=== PATIENT | female | born 1980 | race Caucasian/White ===

== ENCOUNTER 2016-04-16 02:45 | Emergency (ER) | payer BC ==
[2016-04-16 03:21] LABS: Urine Bacteria Absent (Absent); Urine Bilirubin Negative (Negative); Urine Glucose Negative (Negative); Urine Nitrite Negative (Negative)
[2016-04-16] MEDS ORDERED: Ketorolac INJ* 60 MG/2 ML VIAL IM ONE (04:00)
--- NOTE | 2016-04-16 04:28 | ED ---
Star Zimmerman Karl, scribed for Garret Baer MD on 04/16/16 at 0312 . GI/ HPI - HPI Summary HPI Summary: Pt is a 36 y/o female that presents to the ED c/o 9/10 back pain. Pt reported that her pain began 5 days ago on her left side as a shooting back pain that was accompanied by dizziness and frequent urination. Pt stated that her pain subsided but returned tonight and is now constant and on her left and right side. Pt reported that the pain worsened tonight to the point that she could not lay down so she decided to visit the ED. Pt stated that she took Tylenol PM to alleviate her pain but it did not help much. - History of Current Complaint Chief Complaint: EDUrogenitalProblems Time Seen by Provider: 04/16/16 03:05 Stated Complaint: RT SIDE BACK PAIN Hx Obtained From: Patient Onset/Duration: Started Days Ago - 5, Atraumatic, Worse Since - tonight Timing: Constant Severity: Moderate Current Severity: Moderate Pain Intensity: 9 - back pain Associated Signs and Symptoms: Positive: Back Pain, Dizziness, Other: - frequent urination - Allergy/Home Medications Allergies/Adverse Reactions: Allergies Allergy/AdvReac Type Severity Reaction Status Date / Time Penicillins Allergy Severe Hives Verified 03/31/16 17:57 Oxycodone [From Percocet] Allergy Mild Nausea Verified 03/31/16 17:57 Diphenhydramine Allergy Itching Verified 03/31/16 17:57 [From Benadryl] Erythromycin Allergy Nausea And Verified 03/31/16 17:57 Vomiting Latex Allergy Itching Verified 03/31/16 17:57 Levetiracetam [From Keppra] Allergy Altered Verified 03/31/16 17:57 Mental Status Morphine Allergy Itching Verified 03/31/16 17:57 Tramadol Allergy Nausea Verified 03/31/16 17:57 sunflower seeds AdvReac Unknown cold sores Uncoded 11/10/15 18:32 PMH/Surg Hx/FS Hx/Imm Hx Endocrine/Hematology History: Reports: Hx Thyroid Disease - HYPOTHYROID Denies: Hx Diabetes Cardiovascular History: Reports: Other Cardiovascular Problems/Disorders - CARDIAC ARRYTHMIA SEEN A FEW YEARS AGO Denies: Hx Hypertension, Hx Pacemaker/ICD Respiratory History: Denies: Hx Asthma, Hx Chronic Obstructive Pulmonary Disease (COPD) GI History: Denies: Hx Ulcer History: Denies: Hx Renal Disease Musculoskeletal History: Denies: Hx Scoliosis Sensory History: Denies: Hx Hearing Aid Neurological History: Reports: Hx Migraine Denies: Hx Headaches, Other Neuro Impairments/Disorders Psychiatric History: Denies: Hx Panic Disorder - Surgical History Surgery Procedure, Year, and Place: R humerus; L knee tendon, WISDOM TEETH - Immunization History Date of Tetanus Vaccine: UTD Date of Influenza Vaccine: NONE Infectious Disease History: No Infectious Disease History: Denies: Hx Clostridium Difficile, Hx Hepatitis, Hx Human Immunodeficiency Virus (HIV), Hx of Known/Suspected MRSA, Hx Shingles, Hx Tuberculosis, Hx Known/ Suspected VRE, Hx Known/Suspected VRSA, History Other Infectious Disease, Traveled Outside the [place] in Last 30 Days - Family History Known Family History: Positive: Cardiac Disease - @46, Diabetes - father, Other - father had "skin CA in eye" - Social History Alcohol Use: Occasionally Hx Substance Use: No Substance Use Type: Reports: None Hx Tobacco Use: No Smoking Status (MU): Never Smoked Tobacco Have You Smoked in the Last Year: No Review of Systems Constitutional: Negative Eyes: Negative ENT: Negative Respiratory: Negative Gastrointestinal: Negative Positive: frequency - urination Positive: Myalgia - bilateral back pain Skin: Negative Neurological: Other - dizziness Psychological: Normal All Other Systems Reviewed And Are Negative: Yes Physical Exam Triage Information Reviewed: Yes Vital Signs On Initial Exam: Initial Vitals Temp Pulse Resp BP Pulse Ox 99.1 F 78 16 106/70 100 04/16/16 02:50 04/16/16 02:50 04/16/16 02:50 04/16/16 02:50 04/16/16 02:50 Vital Signs Reviewed: Yes Appearance: Positive: Well-Appearing, Pain Distress - MILD DISCOMFORT Skin: Positive: Warm Eyes: Positive: LOUISA ENT: Positive: Hearing grossly normal Respiratory/Lung Sounds: Positive: Breath Sounds Present Abdomen Description: Positive: Nontender, No Organomegaly, Soft. Negative: CVA Tenderness (R), CVA Tenderness (L) Bowel Sounds: Positive: Present Musculoskeletal: Positive: Other - MILD PARA LUMBAR SPASM Neurological: Positive: Sensory/Motor Intact, Alert, Oriented to Person Place, Time, Normal Gait Psychiatric: Positive: Affect/Mood Appropriate Diagnostics - Vital Signs Vital Signs Temp Pulse Resp BP Pulse Ox 04/16/16 02:50 99.1 F 78 16 106/70 100 - Laboratory Lab Results: Lab Results 04/16/16 Range/Units 03:04 Urine Color Yellow Urine Appearance Clear Urine pH 6.0 (5-9) Ur Specific [place] 1.008 L (1.010-1.030) Urine Protein Negative (Negative) Urine Ketones Negative (Negative) Urine Blood Negative (Negative) Urine Nitrate Negative (Negative) Urine Bilirubin Negative (Negative) Urine Urobilinogen Negative (Negative) Ur Leukocyte Esterase Trace H (Negative) Urine WBC (Auto) Trace(0-5/hpf) (Absent) Urine RBC (Auto) Trace(0-2/hpf) (Absent) Ur Squamous Epith Cells Present H (Absent) Urine Bacteria Absent (Absent) Urine Glucose Negative (Negative) Lab Statement: Any lab studies that have been ordered have been reviewed, and results considered in the medical decision making process. Re-Evaluation - Re-Evaluation First Eval Change: Improved GIGU Course/Dx - Diagnoses Provider Diagnoses: Back pain Discharge - Discharge Plan Condition: Improved Disposition: HOME Prescriptions: Cyclobenzaprine TAB* [Flexeril TAB*] 10 mg PO TID #20 tab Ibuprofen TAB* [Advil TAB*] 600 mg PO Q6H #40 tab Patient Education Materials: Low Back Strain (ED), Acute Low Back Pain (ED) Referrals: Sharita Braun MD [Primary Care Provider] - Additional Instructions: Please follow up with your primary care provider. Return to the emergency department for changing or worsening symptoms. The documentation as recorded by the Star sanchez Karl accurately reflects the service I personally performed and the decisions made by Keyur trujillo David, MD.
[2016-04-16 04:49] VITALS: BP 107/77
== END 2016-04-16 04:49 | disposition home or self-care (01) ==
LOC: ED 02:45
DX: M54.9 Dorsalgia, unspecified (principal); R42 Dizziness and giddiness
CPT/HCPCS: 81003; 81015; 87086; 96372; 99282; J1885

== ENCOUNTER 2016-04-18 17:46 | Emergency (ER) | payer BC ==
[2016-04-18 18:20] VITALS: BP 131/70
--- NOTE | 2016-04-18 18:39 | UC ---
Hand/Wrist HPI - HPI Summary HPI Summary: no known injury --right thumb pain worsening over the past week - History Of Current Complaint Chief Complaint: UCUpperExtremity Stated Complaint: THUMB COMPLAINT Time Seen by Provider: 04/18/16 18:33 Hx Obtained From: Patient Hx Last Menstrual Period: 04/14/16 ?: No Mechanism Of Injury: melinda Onset/Duration: Gradual Onset, Lasting Days - 7, Still Present Severity Initially: Moderate Severity Currently: Moderate Character Of Pain: Aching Aggravating Factor(s): Movement Alleviating: Rest Associated Signs And Symptoms: Positive: Negative Related History: Dominant Hand Right - Allergies/Home Medications Allergies/Adverse Reactions: Allergies Allergy/AdvReac Type Severity Reaction Status Date / Time Penicillins Allergy Severe Hives Verified 04/18/16 18:13 Oxycodone [From Percocet] Allergy Mild Nausea Verified 04/18/16 18:13 Diphenhydramine Allergy Itching Verified 04/18/16 18:13 [From Benadryl] Erythromycin Allergy Nausea And Verified 04/18/16 18:13 Vomiting Latex Allergy Itching Verified 04/18/16 18:13 Levetiracetam [From Keppra] Allergy Altered Verified 04/18/16 18:13 Mental Status Morphine Allergy Itching Verified 04/18/16 18:13 Tramadol Allergy Nausea Verified 04/18/16 18:13 sunflower seeds AdvReac Unknown cold sores Uncoded 04/18/16 18:13 PMH/Surg Hx/FS Hx/Imm Hx Previously Healthy: No Endocrine History Of: Reports: Thyroid Disease - HYPOTHYROID Denies: Diabetes Cardiovascular History Of: Denies: Cardiac Disorders, Hypertension, Pacemaker/ICD Respiratory History Of: Denies: COPD, Asthma GI/ History Of: Denies: Ulcer, Renal Disease Neurological History Of: Reports: Migraine - Surgical History Surgical History: Yes Surgery Procedure, Year, and Place: R humerus; L knee tendon, WISDOM TEETH - Family History Known Family History: Positive: Cardiac Disease - @46, Diabetes - father, Other - father had "skin CA in eye" - Social History Occupation: Student Lives: With Family Alcohol Use: None Substance Use Type: None Smoking Status (MU): Never Smoked Tobacco Have You Smoked in the Last Year: No Review of Systems Constitutional: Negative Skin: Negative Eyes: Negative ENT: Negative Respiratory: Negative Cardiovascular: Negative Gastrointestinal: Negative Genitourinary: Negative Motor: Weakness - right thumb Neurovascular: Negative Musculoskeletal: Arthralgia - right thumb mpj Neurological: Negative Psychological: Negative All Other Systems Reviewed And Are Negative: Yes Physical Exam Triage Information Reviewed: Yes Appearance: Well-Appearing, No Pain Distress, Well-Nourished Vital Signs: Initial Vital Signs Temp 97.7 F 04/18/16 18:15 Pulse 85 04/18/16 18:15 Resp 18 04/18/16 18:15 BP 131/70 04/18/16 18:15 Pulse Ox 98 04/18/16 18:15 Vital Signs Reviewed: Yes Eye Exam: Normal Eyes: Positive: Conjunctiva Clear ENT Exam: Normal ENT: Positive: Normal ENT inspection, Hearing grossly normal. Negative: Nasal congestion, Nasal drainage, Trismus, Muffled/hoarse voice Dental Exam: Normal Neck exam: Normal Neck: Positive: Supple, Nontender Respiratory Exam: Normal Respiratory: Positive: Chest non-tender, Lungs clear, Normal breath sounds, No respiratory distress, No accessory muscle use Cardiovascular Exam: Normal Cardiovascular: Positive: RRR, No Murmur, Pulses Normal, Brisk Capillary Refill Musculoskeletal Exam: Normal Musculoskeletal: Positive: ROM Intact, No Edema, Strength Limited @ - right thumb Neurological Exam: Normal Neurological: Positive: Alert, Muscle Tone Normal Psychological Exam: Normal Psychological: Positive: Normal Response To Family Skin Exam: Normal Diagnostics - Radiology No standard instances Xray Interpretation: No Acute Changes Radiology Interpretation Completed By: ED Physician, Radiologist Hand/Wrist Course/Dx - Course Course Of Treatment: splint, antinflammatories, rest, ice, follow with pcp or ortho prn - Differential Dx/Diagnosis Differential Diagnosis/HQI/PQRI: Cellulitis, Contusion, Dislocation, Fracture, Gout, Tendonitis Provider Diagnoses: R thumb tendonitis Discharge - Discharge Plan Condition: Stable Disposition: HOME Prescriptions: Ibuprofen TAB* [Motrin TAB* 600 MG] 600 mg PO Q6H PRN #40 tab PRN Reason: pain Patient Education Materials: Ibuprofen (By mouth), Tendinitis (ED) Referrals: Natalya Che MD [Medical Doctor] - 7 Days Sharita Braun MD [Primary Care Provider] -
[2016-04-18] MEDS ORDERED: Ibuprofen TAB* 600 MG PO ONE (18:40)
--- NOTE | 2016-04-18 19:06 | RAD ---
INDICATION: Right thumb injury COMPARISON: None TECHNIQUE: AP, lateral, and oblique views were obtained. FINDINGS: The bony structures, joint spaces, and soft tissues are normal for age. IMPRESSION: NEGATIVE EXAMINATION.
== END 2016-04-18 19:32 | disposition home or self-care (01) ==
LOC: UCEAST 17:46
DX: M77.9 Enthesopathy, unspecified (principal); M79.644 Pain in right finger(s); Z88.6 Allergy status to analgesic agent; Z88.1 Allergy status to other antibiotic agents; Z88.0 Allergy status to penicillin; Z88.8 Allergy status to other drugs, medicaments and biological substances
CPT/HCPCS: 99213; A9270-GY; G0463

== ENCOUNTER 2016-07-04 15:07 | Emergency (ER) | payer BC ==
[2016-07-04 15:29] VITALS: BP 114/74
--- NOTE | 2016-07-04 16:22 | UC ---
[facility] HPI - HPI Summary HPI Summary: PT WITH RIGHT UPPER TEETH PAIN FOR MONTHS. HAS APPT FOR TOOTH EXTRACTION IN 2 DAYS BUT PAIN WAS TOO SEVERE SO SHE CAME IN TODAY. NO FEVER. TOOK HYDROCODONE/ APAP 5/325 WHICH DID NOT HELP MUCH. - History of Current Complaint Chief Complaint: UC Stated Complaint: TOOTH PAIN Time Seen by Provider: 07/04/16 16:03 Hx Obtained From: Patient Hx Last Menstrual Period: HAVING PERIOD NOW Onset/Duration: Gradual Onset, Lasting Weeks, Still Present Severity: Severe Pain Intensity: 10 Pain Scale Used: 0-10 Numeric Aggravating: Heat, Cold, Chewing Alleviating: Nothing Related History: Previous Dental Care on Same Tooth - Allergies/Home Medications Allergies/Adverse Reactions: Allergies Allergy/AdvReac Type Severity Reaction Status Date / Time Penicillins Allergy Severe Hives Verified 07/04/16 15:21 Oxycodone [From Percocet] Allergy Mild Nausea Verified 07/04/16 15:21 Diphenhydramine Allergy Itching Verified 07/04/16 15:21 [From Benadryl] Erythromycin Allergy Nausea And Verified 07/04/16 15:21 Vomiting Latex Allergy Itching Verified 07/04/16 15:21 Levetiracetam [From Keppra] Allergy Altered Verified 07/04/16 15:21 Mental Status Morphine Allergy Itching Verified 07/04/16 15:21 Tramadol Allergy Nausea Verified 07/04/16 15:21 sunflower seeds AdvReac Unknown cold sores Uncoded 07/04/16 15:21 PMH/Surg Hx/FS Hx/Imm Hx Endocrine History Of: Reports: Thyroid Disease - HYPOTHYROID, Hypothyroidism Denies: Diabetes Cardiovascular History Of: Denies: Cardiac Disorders, Hypertension, Pacemaker/ICD Respiratory History Of: Denies: COPD, Asthma GI/ History Of: Denies: Ulcer, Renal Disease Neurological History Of: Reports: Migraine Psychological History Of: Reports: Anxiety, Depression - Surgical History Surgical History: Yes Surgery Procedure, Year, and Place: R humerus; L knee tendon, WISDOM TEETH - Family History Known Family History: Positive: Cardiac Disease - @46, Diabetes - father, Other - father had "skin CA in eye" - Social History Alcohol Use: None Substance Use Type: Prescribed Smoking Status (MU): Never Smoked Tobacco Have You Smoked in the Last Year: No Review of Systems Constitutional: Negative ENT: Dental Pain Respiratory: Negative Cardiovascular: Negative Gastrointestinal: Negative All Other Systems Reviewed And Are Negative: Yes Physical Exam Triage Information Reviewed: Yes Appearance: Well-Appearing, No Pain Distress, Well-Nourished Vital Signs: Initial Vital Signs Temp 98.4 F 07/04/16 15:24 Pulse 68 07/04/16 15:24 Resp 16 07/04/16 15:24 BP 114/74 07/04/16 15:24 Pulse Ox 100 07/04/16 15:24 Vital Signs Reviewed: Yes Eyes: Positive: Conjunctiva Clear ENT: Positive: Hearing grossly normal Dental: Positive: Gross Decay/Caries @. Negative: Cervical Lymphadenopathy Neck: Positive: Supple, Nontender, No Lymphadenopathy Respiratory Exam: Normal Cardiovascular Exam: Normal Abdomen Description: Positive: Soft Musculoskeletal: Positive: No Edema Neurological: Positive: Alert Psychological: Positive: Age Appropriate Behavior Skin: Negative: rashes Dental Complaint Course/Dx - Differential Dx/Diagnosis Provider Diagnoses: DENTAL PAIN Discharge - Discharge Plan Condition: Stable Disposition: HOME Prescriptions: Chlorhexidine MW 0.12% 473ML* [Peridex Mouth Wash 0.12%*] 15 ml SWISH SPIT BID # 1 bottle Hydrocodone-Acetaminophen [Lorcet Plus 7.5-325 mg] 1 tab PO Q6H #12 tab MDD 4 Patient Education Materials: Toothache (ED) Referrals: Sharita Braun MD [Primary Care Provider] - If Needed Additional Instructions: KEEP YOUR DENTAL APPT ON WEDNESDAY MORNING. OKAY TO TAKE 1.5-2 OF THE NORCO TABLETS YOU HAVE AT HOME EVERY 6 HRS. NEW RX FOR 7.5MG TABS SENT TO PHARMACY. OKAY TO TAKE IBUPROFEN WELL. BE AWARE THAT THESE MEDS MAY MAKE YOU SLEEPY.
== END 2016-07-04 16:46 | disposition home or self-care (01) ==
LOC: UCEAST 15:07
DX: K08.89 Other specified disorders of teeth and supporting structures (principal); Z88.1 Allergy status to other antibiotic agents; Z88.5 Allergy status to narcotic agent; Z88.0 Allergy status to penicillin; E03.9 Hypothyroidism, unspecified; G43.909 Migraine, unspecified, not intractable, without status migrainosus
CPT/HCPCS: 99212; G0463

== ENCOUNTER 2016-08-29 17:07 | Emergency (ER) | payer BC ==
[2016-08-29 17:26] VITALS: BP 127/81
--- NOTE | 2016-08-29 18:30 | UC ---
[facility] HPI - HPI Summary HPI Summary: DENTAL PAIN AND SWELLING AT (#14 & 15) LEFT UPPER JAW. HAD EXTRACTION OF RIGHT SIDE DONE LAST MONTH. LAST THREE DAYS HAS BEEN BOTHERING HER, PAIN WITH CHEWING. NO FEVER. - History of Current Complaint Chief Complaint: UCDentalProblem Stated Complaint: TOOTH COMPLAINT Time Seen by Provider: 08/29/16 17:27 Hx Obtained From: Patient Hx Last Menstrual Period: 08/27/16 Onset/Duration: Gradual Onset, Lasting Days, Still Present Severity: Moderate Pain Intensity: 9 Pain Scale Used: 0-10 Numeric Related History: Swelling - Allergies/Home Medications Allergies/Adverse Reactions: Allergies Allergy/AdvReac Type Severity Reaction Status Date / Time Penicillins Allergy Severe Hives Verified 07/04/16 15:21 Oxycodone [From Percocet] Allergy Mild Nausea Verified 07/04/16 15:21 Diphenhydramine Allergy Itching Verified 07/04/16 15:21 [From Benadryl] Erythromycin Allergy Nausea And Verified 07/04/16 15:21 Vomiting Latex Allergy Itching Verified 07/04/16 15:21 Levetiracetam [From Keppra] Allergy Altered Verified 07/04/16 15:21 Mental Status Morphine Allergy Itching Verified 07/04/16 15:21 Tramadol Allergy Nausea Verified 07/04/16 15:21 sunflower seeds AdvReac Unknown cold sores Uncoded 07/04/16 15:21 PMH/Surg Hx/FS Hx/Imm Hx Previously Healthy: Yes Endocrine History Of: Reports: Thyroid Disease - HYPOTHYROID, Hypothyroidism Denies: Diabetes Cardiovascular History Of: Denies: Cardiac Disorders, Hypertension, Pacemaker/ICD Respiratory History Of: Denies: COPD, Asthma GI/ History Of: Denies: Ulcer, Renal Disease Neurological History Of: Reports: Migraine Psychological History Of: Reports: Anxiety, Depression - Surgical History Surgical History: Yes Surgery Procedure, Year, and Place: R humerus; L knee tendon, WISDOM TEETH - Family History Known Family History: Positive: Cardiac Disease - @46, Diabetes - father, Other - father had "skin CA in eye" - Social History Alcohol Use: None Substance Use Type: Prescribed Smoking Status (MU): Never Smoked Tobacco Have You Smoked in the Last Year: No Review of Systems Constitutional: Negative Skin: Negative Eyes: Negative ENT: Dental Pain Respiratory: Negative Cardiovascular: Negative Gastrointestinal: Negative Genitourinary: Negative Motor: Negative Neurovascular: Negative Musculoskeletal: Negative Neurological: Negative Psychological: Negative All Other Systems Reviewed And Are Negative: Yes Physical Exam Triage Information Reviewed: Yes Appearance: Well-Appearing, No Pain Distress, Well-Nourished Vital Signs: Initial Vital Signs Temp 97.8 F 08/29/16 17:23 Pulse 78 08/29/16 17:23 Resp 16 08/29/16 17:23 BP 127/81 08/29/16 17:23 Pulse Ox 100 08/29/16 17:23 Eye Exam: Normal ENT Exam: Normal ENT: Positive: Normal ENT inspection, Hearing grossly normal, Pharynx normal, TMs normal Dental: Positive: Percussion Tenderness @ - 14, 15, Abscess @ - 14, 15 Neck exam: Normal Neck: Positive: Supple, Nontender Respiratory Exam: Normal Respiratory: Positive: Chest non-tender, Lungs clear, Normal breath sounds, No respiratory distress Cardiovascular Exam: Normal Cardiovascular: Positive: RRR, No Murmur, Pulses Normal Abdominal Exam: Normal Abdomen Description: Positive: Nontender, No Organomegaly Musculoskeletal Exam: Normal Neurological Exam: Normal Psychological Exam: Normal Skin Exam: Normal Dental Complaint Course/Dx - Differential Dx/Diagnosis Differential Diagnosis/Dx: Dental Abscess, Dental Caries, Fractured Tooth Provider Diagnoses: DENTAL PAIN, ABSCESS #14, 15 Discharge - Discharge Plan Condition: Stable Disposition: HOME Prescriptions: Clindamycin Cap(NF) [Cleocin 300 mg Cap(NF)] 300 mg PO TID #30 cap HYDROcodone/ACETAMIN 5-325 MG* [[place] 5-325 TAB*] 1 tab PO Q8H PRN #9 tab MDD three tabs PRN Reason: Pain Patient Education Materials: Dental Abscess (ED), Toothache (ED) Referrals: Sharita Braun MD [Primary Care Provider] - Additional Instructions: dental care referral sheet given [facility]: 1 - PAIN HERE
== END 2016-08-29 18:10 | disposition home or self-care (01) ==
LOC: UCEAST 17:07
DX: K04.7 Periapical abscess without sinus (principal); K08.89 Other specified disorders of teeth and supporting structures; E03.9 Hypothyroidism, unspecified; G43.909 Migraine, unspecified, not intractable, without status migrainosus; F41.9 Anxiety disorder, unspecified; F32.9 Major depressive disorder, single episode, unspecified; Z88.0 Allergy status to penicillin; Z88.8 Allergy status to other drugs, medicaments and biological substances; Z88.5 Allergy status to narcotic agent; Z88.1 Allergy status to other antibiotic agents; Z91.040 Latex allergy status
CPT/HCPCS: 99212; G0463

== ENCOUNTER 2016-09-12 02:31 | Emergency (ER) | payer BC ==
[2016-09-12] MEDS ORDERED: Amoxicillin/Clavulanate TAB* 875 MG PO ONE (03:57)
[2016-09-12] MEDS ORDERED: HYDROcodone/ACETAMIN 5-325 MG* 1 TAB PO ONE (03:58)
--- NOTE | 2016-09-12 04:20 | ED ---
Cecille Zimmerman Alok, scribed for Tone Pitt MD on 09/12/16 at 0402 . Throat Pain/Nasal Congestion - HPI Summary HPI Summary: 36F presents with dental pain at the upper left side at tooth 14 for the past 3 weeks. Pt was seen at and was dx with a dental abscess and rx for clindamycin for 1.5 weeks. Pt states her condition improved temporarily before worsening again. Pt states her dental pain radiates to the left ear. Pt states her dental pain is aggravated when chewing. Pt has had her wisdom teeth removed. Pt notes chills and left sided facial swelling. Pt denies fever. Pt notes allergies to Erthromycin and Morphine. Pt states she is able to take Augmentin. - History of Current Complaint Chief Complaint: EDDentalPain Time Seen by Provider: 09/12/16 03:32 Hx Obtained From: Patient Onset/Duration: Lasting Weeks, Still Present Severity: Moderate - Allergies/Home Medications Allergies/Adverse Reactions: Allergies Allergy/AdvReac Type Severity Reaction Status Date / Time Penicillins Allergy Severe Hives Verified 07/04/16 15:21 Oxycodone [From Percocet] Allergy Mild Nausea Verified 07/04/16 15:21 Diphenhydramine Allergy Itching Verified 07/04/16 15:21 [From Benadryl] Erythromycin Allergy Nausea And Verified 07/04/16 15:21 Vomiting Latex Allergy Itching Verified 07/04/16 15:21 Levetiracetam [From Keppra] Allergy Altered Verified 07/04/16 15:21 Mental Status Morphine Allergy Itching Verified 07/04/16 15:21 Tramadol Allergy Nausea Verified 07/04/16 15:21 sunflower seeds AdvReac Unknown cold sores Uncoded 07/04/16 15:21 PMH/Surg Hx/FS Hx/Imm Hx Endocrine/Hematology History: Reports: Hx Thyroid Disease - HYPOTHYROID Denies: Hx Diabetes Cardiovascular History: Reports: Other Cardiovascular Problems/Disorders - CARDIAC ARRYTHMIA SEEN A FEW YEARS AGO Denies: Hx Hypertension, Hx Pacemaker/ICD Respiratory History: Denies: Hx Asthma, Hx Chronic Obstructive Pulmonary Disease (COPD) GI History: Denies: Hx Ulcer History: Denies: Hx Renal Disease Musculoskeletal History: Denies: Hx Rheumatoid Arthritis, Hx Osteoporosis, Hx Scoliosis Sensory History: Denies: Hx Hearing Aid Neurological History: Reports: Hx Migraine Denies: Hx Headaches, Other Neuro Impairments/Disorders Psychiatric History: Reports: Hx Anxiety, Hx Depression Denies: Hx Panic Disorder - Surgical History Surgery Procedure, Year, and Place: R humerus; L knee tendon, WISDOM TEETH - Immunization History Date of Tetanus Vaccine: UTD Date of Influenza Vaccine: NONE Infectious Disease History: Denies: Hx Clostridium Difficile, Hx Hepatitis, Hx Human Immunodeficiency Virus (HIV), Hx of Known/Suspected MRSA, Hx Shingles, Hx Tuberculosis, Hx Known/ Suspected VRE, Hx Known/Suspected VRSA, History Other Infectious Disease, Traveled Outside the [place] in Last 30 Days - Family History Known Family History: Positive: Cardiac Disease - @46, Diabetes - father, Other - father had "skin CA in eye" - Social History Lives: With Family Alcohol Use: None Hx Substance Use: No Substance Use Type: Reports: Prescribed Hx Tobacco Use: No Smoking Status (MU): Never Smoked Tobacco Have You Smoked in the Last Year: No Review of Systems Positive: Chills. Negative: Fever Positive: Dental Pain, Other - facial swelling All Other Systems Reviewed And Are Negative: Yes Physical Exam - Summary Physical Exam Summary: The patient is well-nourished in no acute distress and in no acute pain. The skin is warm and dry and skin color reflects adequate perfusion. HEENT: The head is normocephalic and atraumatic. The pupils are equal and reactive. The conjunctivae are clear and without drainage. Nares are patent and without drainage. Mouth reveals moist mucous membranes and the throat is without erythema and exudate. The external ears are intact. The ear canals are patent and without drainage. The tympanic membranes are intact. Denal pain at tooth 14. Gingiva anterior to tooth 15 inflamed. Possibility of cellulitis early abscess. Swelling at the maxilla. Neck is supple with full range of motion and non-tender. There are no carotid bruits. There is no neck vein distension. No adenopathy. Respiratory: Chest is non-tender. Lungs are clear to auscultation and breath sounds are symmetrical and equal. Cardiovascular: Hear is regular rate and rhythm. There is no murmur or rub auscultated. There is no peripheral edema and pulses are symmetrical and equal. Abdomen: The abdomen is soft and non-tender. There are normal bowel sounds heard in all four quadrants and there is no organomegaly palpated. Musculoskeletal: There is no back pain noted. Extremities are non-tender with full range of motion. There is good capillary refill. There is no peripheral edema or calf tenderness elicited. Neurological: Patient is alert and oriented to person, place and time. The patient has symmetrical motor strength in all four extremities. Cranial nerves are grossly intact. Deep tendon reflexes are symmetrical and equal in all four extremities. Psychiatric: The patient has an appropriate affect and does not exhibit any anxiety or depression. Triage Information Reviewed: Yes Vital Signs On Initial Exam: Initial Vitals Temp Pulse Resp BP Pulse Ox 97 F 76 18 119/81 100 09/12/16 02:33 09/12/16 02:33 09/12/16 02:33 09/12/16 02:33 09/12/16 02:33 Vital Signs Reviewed: Yes Diagnostics - Vital Signs Vital Signs Temp Pulse Resp BP Pulse Ox 09/12/16 02:33 97 F 76 18 119/81 100 - Laboratory Lab Statement: Any lab studies that have been ordered have been reviewed, and results considered in the medical decision making process. EENT Course/Dx - Course Course Of Treatment: Pt presents with dental pain with possible abcess. Pt states she is able to take augmentin. Will discharge home recommendation to FU with PCP and find a dentist. - Differential Diagnoses Differential Diagnoses: Other - dental abscess - Diagnoses Provider Diagnoses: Dental abscess Discharge - Discharge Plan Condition: Stable Disposition: HOME Prescriptions: Amoxicillin/Clavulanate TAB* [Augmentin TAB 875*] 875 mg PO BID #20 tab HYDROcodone/ACETAMIN 5-325 MG* [[place] 5-325 TAB*] 1 tab PO Q6H PRN #16 tab MDD 4 PRN Reason: pain Patient Education Materials: Dental Abscess (ED) Referrals: Sharita Braun MD [Primary Care Provider] - Additional Instructions: Please follow up with your primary care provider The documentation as recorded by the Cecille sanchez Alok accurately reflects the service I personally performed and the decisions made by , Tone Pitt MD.
[2016-09-12 04:31] VITALS: BP 127/74
== END 2016-09-12 04:30 | disposition home or self-care (01) ==
LOC: ED 02:31
DX: K04.7 Periapical abscess without sinus (principal); K08.89 Other specified disorders of teeth and supporting structures; R68.83 Chills (without fever)
CPT/HCPCS: 99282; A9270-GY

== ENCOUNTER 2016-10-03 12:15 | Emergency (ER) | payer BC ==
[2016-10-03 12:19] VITALS: BP 135/89
--- NOTE | 2016-10-03 13:17 | ED ---
Throat Pain/Nasal Congestion - HPI Summary HPI Summary: 36 female presents with complaints of dental pain and abscess that has been ongoing for the past couple of months in her upper left side at tooth 14. Patient states she was on Augmentin approximately 1 month ago for the same infection. She states she believes is draining and she has a bad taste in her mouth. Patient states she has developed pressure in her sinuses. Chewing aggravates her discomfort. States the pain is not significant as she has already had a root canal however procedure was never completed due to insurance. Denies fever/chills. Has several allergies. She also mentioned she woke up with some chest pressure that she thinks may be digestion and she also has nausea. Has had loss of appetite. Denies vomiting and abdominal pain. Has been taking ibuprofen with last dose of 600mg being ~4 hours ago along with mouthwashes and salt water swishes. Does have relief. She denies difficulty breathing and swallowing. Has some pain with swallowing. Denies PMHx besides hypothyroidism. Had cardiac workup in past without significant findings. - History of Current Complaint Chief Complaint: EDDentalPain Hx Obtained From: Patient Onset/Duration: Gradual Onset, Lasting Weeks, Still Present, Worse Since Severity: Moderate Associated Signs And Symptoms: Positive: Sinus Discomfort - pressure Cough: None - Allergies/Home Medications Allergies/Adverse Reactions: Allergies Allergy/AdvReac Type Severity Reaction Status Date / Time Penicillins Allergy Severe Hives Verified 07/04/16 15:21 Oxycodone [From Percocet] Allergy Mild Nausea Verified 07/04/16 15:21 Diphenhydramine Allergy Itching Verified 07/04/16 15:21 [From Benadryl] Erythromycin Allergy Nausea And Verified 07/04/16 15:21 Vomiting Latex Allergy Itching Verified 07/04/16 15:21 Levetiracetam [From Keppra] Allergy Altered Verified 07/04/16 15:21 Mental Status Morphine Allergy Itching Verified 07/04/16 15:21 Tramadol Allergy Nausea Verified 07/04/16 15:21 sunflower seeds AdvReac Unknown cold sores Uncoded 07/04/16 15:21 PMH/Surg Hx/FS Hx/Imm Hx Endocrine/Hematology History: Reports: Hx Thyroid Disease - HYPOTHYROID Denies: Hx Diabetes Cardiovascular History: Reports: Other Cardiovascular Problems/Disorders - CARDIAC ARRYTHMIA SEEN A FEW YEARS AGO Denies: Hx Hypertension, Hx Pacemaker/ICD Respiratory History: Denies: Hx Asthma, Hx Chronic Obstructive Pulmonary Disease (COPD) GI History: Denies: Hx Ulcer History: Denies: Hx Renal Disease Musculoskeletal History: Denies: Hx Rheumatoid Arthritis, Hx Osteoporosis, Hx Scoliosis Sensory History: Denies: Hx Hearing Aid Neurological History: Reports: Hx Migraine Denies: Hx Headaches, Other Neuro Impairments/Disorders Psychiatric History: Reports: Hx Anxiety, Hx Depression Denies: Hx Panic Disorder - Surgical History Surgery Procedure, Year, and Place: R humerus; L knee tendon, WISDOM TEETH - Immunization History Date of Tetanus Vaccine: UTD Date of Influenza Vaccine: NONE Immunizations Up to Date: Yes Infectious Disease History: Denies: Hx Clostridium Difficile, Hx Hepatitis, Hx Human Immunodeficiency Virus (HIV), Hx of Known/Suspected MRSA, Hx Shingles, Hx Tuberculosis, Hx Known/ Suspected VRE, Hx Known/Suspected VRSA, History Other Infectious Disease, Traveled Outside the [place] in Last 30 Days - Family History Known Family History: Positive: Cardiac Disease - @46, Diabetes - father, Other - father had "skin CA in eye" - Social History Alcohol Use: None Hx Substance Use: No Substance Use Type: Reports: Prescribed Hx Tobacco Use: No Smoking Status (MU): Never Smoked Tobacco Have You Smoked in the Last Year: No Review of Systems Constitutional: Negative Eyes: Negative Positive: Dental Pain Positive: Chest Pain - pressure Respiratory: Negative Positive: Nausea Musculoskeletal: Negative Skin: Negative Neurological: Negative All Other Systems Reviewed And Are Negative: Yes Physical Exam Triage Information Reviewed: Yes Vital Signs On Initial Exam: Initial Vitals Temp Pulse Resp BP Pulse Ox 97.9 F 72 16 135/89 98 10/03/16 12:16 10/03/16 12:16 10/03/16 12:16 10/03/16 12:16 10/03/16 12:16 Vital Signs Reviewed: Yes Appearance: Positive: Well-Appearing, No Pain Distress, Well-Nourished Skin: Positive: Warm, Skin Color Reflects Adequate Perfusion, Dry, Other - normal skin exam, witout janeway lesions, osler nodes. Negative: Tender, Cyanosis @, Diaphoretic Head/Face: Positive: Normal Head/Face Inspection Eyes: Positive: Normal, Conjunctiva Clear ENT: Positive: Hearing grossly normal, Pharynx normal, Nasal congestion, TMs normal, Tonsillar swelling, Other - no excessive drooling, patent airway no concern for peritonsillar abscess or epiglottitis. Negative: Nasal drainage, Tonsillar exudate, Trismus, Muffled/hoarse voice Dental: Positive: Percussion Tenderness @ - maxillary, Gross Decay/Caries @, Dental Fracture @ - throughout, tooth 14, Abscess @ - left upper at tooth 14, Other - no palpable abscess noted. Negative: Cervical Lymphadenopathy Neck: Positive: Supple, Nontender Respiratory/Lung Sounds: Positive: Clear to Auscultation, Breath Sounds Present. Negative: Rales, Rhonchi, Wheezes Cardiovascular: Positive: Normal, RRR, Pulses are Symmetrical in both Upper and Lower Extremities. Negative: Murmur, Rub Abdomen Description: Positive: Nontender, Soft Bowel Sounds: Positive: Present Musculoskeletal: Positive: Normal, Strength/ROM Intact Neurological: Positive: Normal, Sensory/Motor Intact, Alert, Oriented to Person Place, Time Psychiatric: Positive: Normal AVPU Assessment: Alert Diagnostics - Vital Signs Vital Signs Temp Pulse Resp BP Pulse Ox 10/03/16 12:16 97.9 F 72 16 135/89 98 - Laboratory Lab Statement: Any lab studies that have been ordered have been reviewed, and results considered in the medical decision making process. - EKG EKG Cardiac Rate: NL EKG Rhythm: Sinus Rhythm ST Segment: Normal Ectopy: None EKG Interpretation: NSR EKG Comparison: No Significant Change Re-Evaluation - Re-Evaluation First Eval Re-Evaluation Time: 14:20 Change: Improved - had relief after GI cocktail and zofran EENT Course/Dx - Course Course Of Treatment: will be treated for dental abscess. patient has follow up with dentist next week. ekg ordered to rule out cardiac due to complaints. no concern for any cardiac etiology, carditis etc at this time. NSR. given GI cocktail and zofran and had relief. Not in much pain at this time. Continue ibuprofen with food only as needed, take antibiotic until entire dose is finished. Continue mouth wash and salt water swishes. Follow up with dentist. Aware of worsening signs and symptoms. - Differential Diagnoses Differential Diagnoses: Dental Abscess, Dental Caries, Fractured Tooth, Gingivitis, Periodontic Abscess, Periodontic Disease - Diagnoses Provider Diagnoses: Dental abscess Discharge - Discharge Plan Condition: Stable Disposition: HOME Prescriptions: Amoxicillin/Clavulanate TAB* [Augmentin TAB 875*] 875 mg PO BID #20 tab Patient Education Materials: Dental Abscess (ED) Referrals: Sharita Braun MD [Primary Care Provider] - Additional Instructions: Take prescribed antibiotic as directed until entire dose is finished. Continue ibuprofen, mouthwashes and salt water gargles. Keep good oral hygiene. Follow up with dentist next week. If symptoms worsen such as difficulty breathing, swallowing or fever/chills please seek medical attention promptly.
[2016-10-03] MEDS ORDERED: Lidocaine 2% VISCOUS* 15 ML UDC PO ONE (13:31)
[2016-10-03] MEDS ORDERED: Al Hydrox/Mg Hydrox/Simet LIQ* 30 ML UDC PO ONE (13:31)
[2016-10-03] MEDS ORDERED: Ondansetron ODT TAB* 4 MG PO ONE (13:33)
== END 2016-10-03 14:27 | disposition home or self-care (01) ==
LOC: ED 12:15
DX: K04.7 Periapical abscess without sinus (principal); K08.89 Other specified disorders of teeth and supporting structures; R11.0 Nausea; R07.9 Chest pain, unspecified
CPT/HCPCS: 93005; 99282; A9270-GY

== ENCOUNTER 2016-10-19 16:48 | Emergency (ER) | payer BC ==
[2016-10-19 17:00] VITALS: BP 123/78
--- NOTE | 2016-10-19 19:04 | UC ---
Fletcher Zimmerman Alfonso, scribed for Argenis Xiong MD on 10/19/16 at 1850 . Skin Complaint HPI - HPI Summary HPI Summary: This patient is a 36 year old F presenting to [facility] with a chief complaint of rash since 5 days ago. The rash started on face and spread to chest and shoulders. The CC is described as painful. Pt rates the pain 9/10 in severity. Symptoms aggravated and alleviated by nothing. Not alleviated by goldbond ointment, calamine lotion, and hydrocortisone cream. Pt reports chills and nausea. No fevers, vomiting. Pt with h/o cold sores. Pt states recently under increased financial stress. Pt reports pain "deeper like along the muscle." Pt' s skin hypersensitive. Pt PMHx of hypothyroidism. Patients medication reviewed this visit. - History of Current Complaint Chief Complaint: UCSkin Time Seen by Provider: 10/19/16 18:39 Stated Complaint: RASH Hx Obtained From: Patient Hx Last Menstrual Period: 09/24/16 ?: No Onset/Duration: Gradual Onset, Lasting Days Timing: Constant Onset Severity: Moderate Current Severity: Moderate Pain Intensity: 8 Pain Scale Used: 0-10 Numeric Location: Discrete Aggravating: Touch Alleviating: Nothing Associated Signs & Symptoms: Negative: Nausea, Vomiting, Numbness, Fever - Allergy/Home Medications Allergies/Adverse Reactions: Allergies Allergy/AdvReac Type Severity Reaction Status Date / Time Penicillins Allergy Severe Hives Verified 07/04/16 15:21 Oxycodone [From Percocet] Allergy Mild Nausea Verified 07/04/16 15:21 Diphenhydramine Allergy Itching Verified 07/04/16 15:21 [From Benadryl] Erythromycin Allergy Nausea And Verified 07/04/16 15:21 Vomiting Latex Allergy Itching Verified 07/04/16 15:21 Levetiracetam [From Keppra] Allergy Altered Verified 07/04/16 15:21 Mental Status Morphine Allergy Itching Verified 07/04/16 15:21 Tramadol Allergy Nausea Verified 07/04/16 15:21 sunflower seeds AdvReac Unknown cold sores Uncoded 07/04/16 15:21 Home Medications: Home Medications buPROPion TAB* [Wellbutrin TAB*] 10/19/16 [History] Review of Systems Constitutional: Negative Skin: Rash Eyes: Negative ENT: Negative Respiratory: Negative Cardiovascular: Negative Gastrointestinal: Negative Genitourinary: Negative Motor: Negative Neurovascular: Negative Musculoskeletal: Negative Neurological: Negative Psychological: Negative All Other Systems Reviewed And Are Negative: Yes PMH/Surg Hx/FS Hx/Imm Hx Previously Healthy: Yes Endocrine History: Thyroid Disease Psychological History: Depression - Surgical History Surgical History: Yes Surgery Procedure, Year, and Place: R humerus; L knee tendon, WISDOM TEETH - Family History Known Family History: Positive: Cardiac Disease - @46, Hypertension, Diabetes - father, Other - father had "skin CA in eye" - Social History Occupation: Employed Full-time Alcohol Use: None Substance Use Type: None Smoking Status (MU): Never Smoked Tobacco Have You Smoked in the Last Year: No Physical Exam Triage Information Reviewed: Yes Appearance: Well-Appearing, No Pain Distress, Well-Nourished Vital Signs: Initial Vital Signs Temp 97.8 F 10/19/16 16:57 Pulse 66 10/19/16 16:57 Resp 16 10/19/16 16:57 BP 123/78 10/19/16 16:57 Pulse Ox 100 10/19/16 16:57 Vital Signs Reviewed: Yes Eyes: Negative: Discharge ENT: Positive: Hearing grossly normal Neck: Positive: Supple, Nontender Respiratory Exam: Normal Respiratory: Positive: Chest non-tender, Lungs clear, Normal breath sounds, No respiratory distress, No accessory muscle use Cardiovascular Exam: Normal Cardiovascular: Positive: RRR, No Murmur, Pulses Normal Musculoskeletal Exam: Normal Musculoskeletal: Positive: Strength Intact Neurological Exam: Normal Neurological: Positive: Alert Psychological Exam: Normal Skin: Negative: Other - Pt with clusters of vesicular lesion son left breast, cleavage, left anterior shoulder. pt with skin sensitivity along course of anterior chest wall. pt with small vesicle x 3-4 left mandible No oozing Course/Dx - Course Course Of Treatment: Pt presents with 5-6 days progressive rash along left anterior chest, breast. states feels deeper discomfort. vesicle, red base. no concerns for cellulitis. lesions c/w shingles although crosses > 1 dermatome. d/w pt at length. will start valtrex, pred taper. f/u with pcp. culture taken - Diagnoses Provider Diagnoses: shingles Discharge - Discharge Plan Condition: Stable Disposition: HOME Prescriptions: ValACYclovir (*) [Valtrex 1 GM(*)] 1 gm PO TID #21 tab predniSONE TAB* [Deltasone TAB*] 20 mg PO DAILY #20 tab Patient Education Materials: Shingles (ED) Forms: *Work Release Referrals: Sharita Braun MD [Primary Care Provider] - Additional Instructions: Keep area clean and dry Take both prednisone and Valtrex as prescribed until gone Okay to apply cool soaks to your rash Avoid getting over heated - hot showers, hot soaks Call your doctor to schedule a follow-up appointment this week Contact your doctor or got to the emergency department for uncontrolled pain, fever, chills, vomiting or other concerns The documentation as recorded by the Fletcher sanchez Alfonso accurately reflects the service I personally performed and the decisions made by me, Argenis Xiong MD.
[2016-10-22 01:20] LABS: HS/VZ Source SKIN OF LEFT CHEST; Varicella Zoster Result Negative (Negative); Varicella Zoster Source SKIN OF LEFT CHEST
== END 2016-10-19 19:13 | disposition home or self-care (01) ==
LOC: UCEAST 16:48
DX: B02.9 Zoster without complications (principal)
CPT/HCPCS: 87529; 87798; 99212; G0463

== ENCOUNTER 2016-10-21 15:10 | Emergency (ER) | payer BC ==
[2016-10-21 15:25] VITALS: BP 131/76
--- NOTE | 2016-10-21 16:38 | UC ---
Throat Pain/Nasal Donaot HPI - HPI Summary HPI Summary: complaint of headache , nasal congestion and sore throat that started last night cough that started last night and has worsened coughing so hard she gets nauseated mild bilateral ear pain feels chills occasionally denies V/D rash still feels pain - dx with shingles - taking valtrex and prednisone took some ibuporofen last night without relief - History of Current Complaint Hx Obtained From: Patient Hx Last Menstrual Period: 09/24/16 <Zo Hugo - Last Filed: 10/21/16 16:54> <Argenis Xiong - Last Filed: 10/21/16 18:41> - History of Current Complaint Chief Complaint: UCRespiratory Stated Complaint: HEADACHE,COUGH, SHINGLES? Time Seen by Provider: 10/21/16 16:30 - Allergies/Home Medications Allergies/Adverse Reactions: Allergies Allergy/AdvReac Type Severity Reaction Status Date / Time Penicillins Allergy Severe Hives Verified 07/04/16 15:21 Oxycodone [From Percocet] Allergy Mild Nausea Verified 07/04/16 15:21 Diphenhydramine Allergy Itching Verified 07/04/16 15:21 [From Benadryl] Erythromycin Allergy Nausea And Verified 07/04/16 15:21 Vomiting Latex Allergy Itching Verified 07/04/16 15:21 Levetiracetam [From Keppra] Allergy Altered Verified 07/04/16 15:21 Mental Status Morphine Allergy Itching Verified 07/04/16 15:21 Tramadol Allergy Nausea Verified 07/04/16 15:21 sunflower seeds AdvReac Unknown cold sores Uncoded 07/04/16 15:21 PMH/Surg Hx/FS Hx/Imm Hx Previously Healthy: No - shingles Endocrine History: Hypothyroidism Psychological History: Depression - Surgical History Surgical History: Yes Surgery Procedure, Year, and Place: R humerus; L knee tendon, WISDOM TEETH - Family History Known Family History: Positive: Cardiac Disease - @46, Hypertension, Diabetes - father, Other - father had "skin CA in eye" - Social History Occupation: Employed Full-time Lives: With Family Alcohol Use: None Substance Use Type: None Smoking Status (MU): Never Smoked Tobacco Have You Smoked in the Last Year: No <Zo Hugo - Last Filed: 10/21/16 16:54> Review of Systems Constitutional: Chills Skin: Rash Eyes: Negative ENT: Sore Throat, Ear Ache, Nasal Discharge Respiratory: Cough Cardiovascular: Negative Gastrointestinal: Negative Genitourinary: Negative Motor: Negative Neurovascular: Negative Musculoskeletal: Negative Neurological: Headache Psychological: Negative All Other Systems Reviewed And Are Negative: Yes <Zo Hugo - Last Filed: 10/21/16 16:54> Physical Exam Triage Information Reviewed: Yes Appearance: No Pain Distress, Well-Nourished Vital Signs: Initial Vital Signs Temp 98 F 10/21/16 15:10 Pulse 97 10/21/16 15:10 Resp 18 10/21/16 15:10 BP 131/76 10/21/16 15:10 Pulse Ox 99 10/21/16 15:10 Vital Signs Reviewed: Yes Eyes: Positive: Conjunctiva Clear ENT: Positive: Pharyngeal erythema, Nasal congestion, TMs normal Neck: Positive: No Lymphadenopathy Respiratory: Positive: Lungs clear, Normal breath sounds, No respiratory distress, No accessory muscle use Cardiovascular: Positive: RRR, No Murmur, Pulses Normal Abdomen Description: Positive: Nontender, Soft Bowel Sounds: Positive: Present Musculoskeletal: Positive: No Edema Neurological: Positive: Alert Psychological Exam: Normal Skin: Positive: rashes - chest - vesicular rash on erythematous base <Zo Hugo - Last Filed: 10/21/16 16:54> Vital Signs: Initial Vital Signs Temp 98 F 10/21/16 15:10 Pulse 97 10/21/16 15:10 Resp 18 10/21/16 15:10 BP 131/76 10/21/16 15:10 Pulse Ox 99 10/21/16 15:10 <Argenis Xiong - Last Filed: 10/21/16 18:41> Throat Pain/Nasal Course/Dx - Differential Dx/Diagnosis Differential Diagnosis/HQI/PQRI: Pharyngitis, URI, Other - shingles Provider Diagnoses: URI, shingles <Zo Hugo - Last Filed: 10/21/16 16:54> Discharge <Zo Hugo - Last Filed: 10/21/16 16:54> <Argenis Xiong - Last Filed: 10/21/16 18:41> - Discharge Plan Condition: Stable Disposition: HOME Prescriptions: Benzonatate CAP* [Tessalon 100 MG CAP*] 100 mg PO TID PRN #30 cap PRN Reason: Cough Patient Education Materials: Upper Respiratory Infection (ED) Forms: *Work Release Referrals: Sharita Braun MD [Primary Care Provider] - Additional Instructions: continue treatment for shingles VIRAL UPPER RESPIRATORY INFECTION (COMMON COLD) What is Viral Upper Respiratory Infection? Viral upper respiratory infection is the medical term for the common cold. Respiratory infections can be caused by either a virus or bacteria. The common cold is caused by a virus. The virus travels through the air and can be passed easily from one person to another. This is one reason that it is so important to cover your mouth when you cough or sneeze. When you cover your mouth you will get the virus on your hands. If you touch something with that hand the virus is spread to the object you touch. Because of this you should be sure to wash your hands often when you have a cold. Symptoms usually begin 1 to 3 days after the virus takes hold in your body. Other people can catch your cold even before you start to notice symptoms, which is one reason why colds are hard to prevent. Symptoms May Include: Scratchiness or tickling in the throat Sore throat Stuffy nose Generalized aches and pains Coughing or sneezing Feeling tired Treatment Recommendations: Drink plenty of clear, nonalcoholic fluids, such as water, sports drinks, or juice. For example, an average adult should drink 8 ounces every hour, a child 6 to 10 years should drink 4 ounces every hour, and a child under 6 should drink 1 to 2 ounces every hour. You should rest as much as possible. You can use a cool-mist humidifier or steam vaporizer to increase air moisture. This will make it easier to breathe. Remember that a steam vaporizer may contain hot water that can cause severe denson. If you smoke, stopsmoke irritates bronchial passages. If you are coughing up mucus, and milk seems to make the sputum thicker, do not eat or drink foods that contain milk. You want to try to cough up mucous whenever possible so that you dont get pneumonia. Do not use cough suppressant medicine without your healthcare providers OK. You should take all medications prescribed until completely gone, or as instructed. Non-prescription medicine such as acetaminophen (Tylenol) or ibuprofen (Motrin , Advil) may help your aches, pains, and fever. Attestation Statement User Type: Provider - I was available for consult. This patient was seen by the [facility]. The patient was not presented to, seen by, or examined by me. -Xander <Argenis Xiong - Last Filed: 10/21/16 18:41>
== END 2016-10-21 16:52 | disposition home or self-care (01) ==
LOC: UCEAST 15:10
DX: J06.9 Acute upper respiratory infection, unspecified (principal); B02.9 Zoster without complications
CPT/HCPCS: 99212; G0463

== ENCOUNTER 2016-10-29 18:10 | Emergency (ER) | payer BC ==
[2016-10-29 22:15] LABS: Hematocrit 40 % (35-47); Hemoglobin 13.6 g/dl (12.0-16.0); Mean Corpuscular HGB Conc 34 g/dl (31-36); Mean Corpuscular Hemoglobin 31 pg (27-31); Mean Corpuscular Volume 90 fL (80-97); Mean Platelet Volume 10 um3 (7.4-10.4); Red Blood Count 4.42 10^6/ul (4.0-5.4); Red Cell Distribution Width 13 % (10.5-15); White Blood Count 9.5 10^3/ul (3.5-10.8)
[2016-10-29 22:30] LABS: Albumin 4.1 g/dL (3.2-5.2); BUN/Creatinine Ratio 14.3 (8-20); Calcium 9.1 mg/dL (8.6-10.3); EGFR African American 107.9 (>60); EGFR Non-African American 83.9 (>60); Globulin 2.3 g/dL (2-4); Potassium 3.4 mmol/L (3.5-5.0); Total Bilirubin 0.6 mg/dL (0.2-1.0); Total Protein 6.4 g/dL (6.4-8.9)
[2016-10-29 22:37] VITALS: BP 105/80
--- NOTE | 2016-10-29 22:37 | RAD ---
INDICATION: Nonproductive cough for a few weeks. COMPARISON: February 18, 2016 TECHNIQUE: Dual energy PA and routine lateral views of the chest were obtained. REPORT: Clear lungs and pleural spaces. Negative for pneumothorax. The heart, pulmonary vasculature, and mediastinal contours are unremarkable. Unremarkable osseous structures and soft tissue contours. IMPRESSION: No evidence for acute intrathoracic disease.
[2016-10-29] MEDS ORDERED: predniSONE TAB* 20 MG PO ONE (22:40)
[2016-10-29] MEDS ORDERED: Albuterol HFA INHALER* 8 gm MDI INH ONE (22:45)
--- NOTE | 2016-10-29 22:45 | ED ---
Fletcher Zimmerman Alfonso, scribed for Roseanne Campos MD on 10/29/16 at 2201 . Complex/Multi-Sys Presentation - HPI Summary HPI Summary: This patient is a 36 year old F presenting to [facility] with a chief complaint of coughing since 10 days ago. Pt rates the pain 10/10 in severity. Symptoms aggravated by coughing and deep breaths, and alleviated by nothing. Pt reports SOB, and chest pressure. She reports a recent diagnosis of bronchitis and shingles for which she was prescribed doxycycline, prednisone, and Valtrex. Denies recent travel. Denies taking BCP. PMHx of hypothyroidism. - History Of Current Complaint Chief Complaint: EDUpperRespComplaint Time Seen by Provider: 10/29/16 20:50 Hx Obtained From: Patient Onset/Duration: Sudden Onset, Lasting Days - 10, Still Present Timing: Constant Severity Currently: Severe Severity Initially: Severe Aggravating Factor(s): coughing and deep breaths Alleviating Factor(s): nothing Associated Signs And Symptoms: Positive: SOB, Chest Pain - pressure Related History: Recent Illness - bronchitis and shingles for which she was prescribed doxycycline, prednisone, and Valtrex - Allergies/Home Medications Allergies/Adverse Reactions: Allergies Allergy/AdvReac Type Severity Reaction Status Date / Time Penicillins Allergy Severe Hives Verified 10/29/16 18:20 Oxycodone [From Percocet] Allergy Mild Nausea Verified 10/29/16 18:20 Diphenhydramine Allergy Itching Verified 10/29/16 18:20 [From Benadryl] Erythromycin Allergy Nausea And Verified 10/29/16 18:20 Vomiting Latex Allergy Itching Verified 10/29/16 18:20 Levetiracetam [From Keppra] Allergy Altered Verified 10/29/16 18:20 Mental Status Morphine Allergy Itching Verified 10/29/16 18:20 Tramadol Allergy Nausea Verified 10/29/16 18:20 sunflower seeds AdvReac Unknown cold sores Uncoded 07/04/16 15:21 PMH/Surg Hx/FS Hx/Imm Hx Endocrine/Hematology History: Reports: Hx Thyroid Disease - HYPOTHYROID Denies: Hx Diabetes Cardiovascular History: Reports: Other Cardiovascular Problems/Disorders - CARDIAC ARRYTHMIA SEEN A FEW YEARS AGO Denies: Hx Hypertension, Hx Pacemaker/ICD Respiratory History: Denies: Hx Asthma, Hx Chronic Obstructive Pulmonary Disease (COPD) GI History: Denies: Hx Ulcer History: Denies: Hx Renal Disease Musculoskeletal History: Denies: Hx Rheumatoid Arthritis, Hx Osteoporosis, Hx Scoliosis Sensory History: Denies: Hx Hearing Aid Neurological History: Reports: Hx Migraine Denies: Hx Headaches, Other Neuro Impairments/Disorders Psychiatric History: Reports: Hx Anxiety, Hx Depression Denies: Hx Panic Disorder - Surgical History Surgery Procedure, Year, and Place: R humerus; L knee tendon, WISDOM TEETH - Immunization History Date of Tetanus Vaccine: UTD Date of Influenza Vaccine: NONE Infectious Disease History: Yes Infectious Disease History: Denies: Hx Clostridium Difficile, Hx Hepatitis, Hx Human Immunodeficiency Virus (HIV), Hx of Known/Suspected MRSA, Hx Shingles, Hx Tuberculosis, Hx Known/ Suspected VRE, Hx Known/Suspected VRSA, History Other Infectious Disease, Traveled Outside the in Last 30 Days - Family History Known Family History: Positive: Cardiac Disease - @46, Hypertension, Diabetes - father, Other - father had "skin CA in eye" - Social History 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 Lives: With Family - Alcohol Use: None Hx Substance Use: No Substance Use Type: Reports: None Hx Tobacco Use: No Smoking Status (MU): Never Smoked Tobacco Have You Smoked in the Last Year: No Review of Systems Negative: Fever Positive: Chest Pain - Pressure Positive: Shortness Of Breath, Cough All Other Systems Reviewed And Are Negative: Yes Physical Exam Triage Information Reviewed: Yes Vital Signs On Initial Exam: Initial Vitals Temp Pulse Resp BP Pulse Ox 98 F 96 16 131/92 100 10/29/16 18:14 10/29/16 18:14 10/29/16 18:14 10/29/16 18:14 10/29/16 18:14 Vital Signs Reviewed: Yes Appearance: Positive: Well-Appearing, No Pain Distress Skin: Positive: Warm, Skin Color Reflects Adequate Perfusion, Dry Eyes: Positive: EOMI, LOUISA ENT: Positive: Pharynx normal, TMs normal Neck: Positive: Supple, Nontender Respiratory/Lung Sounds: Positive: Clear to Auscultation, Breath Sounds Present. Negative: Rales, Rhonchi, Wheezes Cardiovascular: Positive: RRR, Other - No gallop. Negative: Murmur, Rub Abdomen Description: Positive: Nontender, Soft, Other: - No rebound. Negative: Distended, Guarding Bowel Sounds: Positive: Present Musculoskeletal: Positive: Strength/ROM Intact, Other - No edema Neurological: Positive: Sensory/Motor Intact, Alert, Oriented to Person Place, Time, CN Intact II-III - 2-12 Psychiatric: Positive: Affect/Mood Appropriate - Niels Coma Scale Coma Scale Total: 15 Diagnostics - Vital Signs Vital Signs Temp Pulse Resp BP Pulse Ox 10/29/16 19:50 97.7 F 77 18 119/86 100 10/29/16 18:14 98 F 96 16 131/92 100 - Laboratory Lab Results: Lab Results 10/29/16 10/29/16 Range/Units 22:09 22:09 WBC 9.5 (3.5-10.8) 10^3/ul RBC 4.42 (4.0-5.4) 10^6/ul Hgb 13.6 (12.0-16.0) g/dl Hct 40 (35-47) % MCV 90 (80-97) fL MCH 31 (27-31) pg MCHC 34 (31-36) g/dl RDW 13 (10.5-15) % Plt Count 225 (150-450) 10^3/ul MPV 10 (7.4-10.4) um3 Neut % (Auto) 51.1 (38-83) % Lymph % (Auto) 34.9 (25-47) % Kidder % (Auto) 9.6 H (1-9) % Eos % (Auto) 2.9 (0-6) % Baso % (Auto) 1.5 (0-2) % Absolute Neuts (auto) 4.8 (1.5-7.7) 10^3/ul Absolute Lymphs (auto) 3.3 (1.0-4.8) 10^3/ul Absolute Monos (auto) 0.9 H (0-0.8) 10^3/ul Absolute Eos (auto) 0.3 (0-0.6) 10^3/ul Absolute Basos (auto) 0.1 (0-0.2) 10^3/ul Absolute Nucleated RBC 0.01 10^3/ul Nucleated RBC % 0.1 Sodium 136 (133-145) mmol/L Potassium 3.4 L (3.5-5.0) mmol/L Chloride 107 (101-111) mmol/L Carbon Dioxide 24 (22-32) mmol/L Anion Gap 5 (2-11) mmol/L BUN 11 (6-24) mg/dL Creatinine 0.77 (0.51-0.95) mg/dL Est GFR ( Amer) 107.9 (>60) Est GFR (Non-Af Amer) 83.9 (>60) BUN/Creatinine Ratio 14.3 (8-20) Glucose 79 (70-100) mg/dL Calcium 9.1 (8.6-10.3) mg/dL Total Bilirubin 0.60 (0.2-1.0) mg/dL AST 13 (13-39) U/L ALT 13 (7-52) U/L Alkaline Phosphatase 40 (34-104) U/L Total Protein 6.4 (6.4-8.9) g/dL Albumin 4.1 (3.2-5.2) g/dL Globulin 2.3 (2-4) g/dL Albumin/Globulin Ratio 1.8 (1-3) Result Diagrams: 10/29/16 22:09 10/29/16 22:09 Lab Statement: Any lab studies that have been ordered have been reviewed, and results considered in the medical decision making process. - Radiology CXR Radiology Interpretation Completed By: Radiologist - No evidence for acute intrathoracic disease. Complex Multi-Symp Course/Dx Course Of Treatment: 36 yo female without any PE risk factors and normal vital signs with cough that has not improved with azithro, labs and cxr normal. Pt placed on steroid burst and givne an mdi inhaler - Diagnoses Provider Diagnoses: Bronchitis Discharge - Discharge Plan Condition: Stable Disposition: HOME Prescriptions: predniSONE TAB* [Deltasone TAB*] 50 mg PO DAILY #4 tab Patient Education Materials: Acute Bronchitis (ED) Referrals: Sharita Braun MD [Primary Care Provider] - 3 Days The documentation as recorded by the Fletcher sanchez Alfonso accurately reflects the service I personally performed and the decisions made by me, Roseanne Campos MD.
== END 2016-10-29 23:03 | disposition home or self-care (01) ==
LOC: ED 18:10
DX: J40 Bronchitis, not specified as acute or chronic (principal); E03.9 Hypothyroidism, unspecified; Z88.0 Allergy status to penicillin; Z88.5 Allergy status to narcotic agent
CPT/HCPCS: 36415; 71020; 80053; 85025; 99282; A9270-GY; J7512

== ENCOUNTER → 2016-11-25 13:22 | Emergency (ER) | payer BC ==
[2016-11-25 13:45] VITALS: BP 125/88
--- NOTE | 2016-11-25 14:15 | ED ---
Lower Extremity - HPI Summary HPI Summary: Patient presents to ED with CC of left foot pain after a computer fell on top of the dorsum of her foot today. She denies numbness, tingling, or temperature changes to the area. She is otherwise healthy and denies medications including blood thinners. There is slight ecchymosis over the lateral dorsum of the foot over the 5th metatarsal. She has been ambulating, but with pain. Pain is 8/10, constant and worse with standing and better with rest. She denies any other pain or symptoms. She has never injured the foot before. - History of Current Complaint Chief Complaint: EDExtremityLower Stated Complaint: LT FOOT BRUISING/SWOLLEN Time Seen by Provider: 11/25/16 14:01 Hx Obtained From: Patient Hx Last Menstrual Period: 09/24/16 Mechanism Of Injury: Blunt Trauma Onset of Pain: Immediate Onset/Duration: Hours Severity Initially: Moderate Severity Currently: Moderate Pain Intensity: 9 Pain Scale Used: 0-10 Numeric Timing: Constant Location: Is Discrete @ - left dorsum of the foot Character Of Pain: Aching Associated Signs And Symptoms: Positive: Bruising Aggravating Factor(s): Standing, Ambulation Alleviating Factor(s): Rest Able to Bear Weight: Yes - Risk Factors Gout Risk Factors: Negative DVT Risk Factors: Negative Septic Arthritis Risk Factor: Negative - Allergies/Home Medications Allergies/Adverse Reactions: Allergies Allergy/AdvReac Type Severity Reaction Status Date / Time Penicillins Allergy Severe Hives Verified 11/25/16 13:44 Oxycodone [From Percocet] Allergy Mild Nausea Verified 11/25/16 13:44 Diphenhydramine Allergy Itching Verified 11/25/16 13:44 [From Benadryl] Erythromycin Allergy Nausea And Verified 11/25/16 13:44 Vomiting Latex Allergy Itching Verified 11/25/16 13:44 Levetiracetam [From Keppra] Allergy Altered Verified 11/25/16 13:44 Mental Status Morphine Allergy Itching Verified 11/25/16 13:44 Tramadol Allergy Nausea Verified 11/25/16 13:44 sunflower seeds AdvReac Unknown cold sores Uncoded 11/25/16 13:44 PMH/Surg Hx/FS Hx/Imm Hx Previously Healthy: Yes Endocrine/Hematology History: Reports: Hx Thyroid Disease - HYPOTHYROID Denies: Hx Diabetes Cardiovascular History: Reports: Other Cardiovascular Problems/Disorders - CARDIAC ARRYTHMIA SEEN A FEW YEARS AGO Denies: Hx Hypertension, Hx Pacemaker/ICD Respiratory History: Denies: Hx Asthma, Hx Chronic Obstructive Pulmonary Disease (COPD) GI History: Denies: Hx Ulcer History: Denies: Hx Renal Disease Musculoskeletal History: Denies: Hx Rheumatoid Arthritis, Hx Osteoporosis, Hx Scoliosis Sensory History: Denies: Hx Hearing Aid Neurological History: Reports: Hx Migraine Denies: Hx Headaches, Other Neuro Impairments/Disorders Psychiatric History: Reports: Hx Anxiety, Hx Depression Denies: Hx Panic Disorder - Surgical History Surgery Procedure, Year, and Place: R humerus; L knee tendon, WISDOM TEETH - Immunization History Date of Tetanus Vaccine: UTD Date of Influenza Vaccine: NONE Hx Pertussis Vaccination: No Immunizations Up to Date: Unable to Obtain/Confirm Infectious Disease History: Denies: Hx Clostridium Difficile, Hx Hepatitis, Hx Human Immunodeficiency Virus (HIV), Hx of Known/Suspected MRSA, Hx Shingles, Hx Tuberculosis, Hx Known/ Suspected VRE, Hx Known/Suspected VRSA, History Other Infectious Disease, Traveled Outside the [place] in Last 30 Days - Family History Known Family History: Positive: Cardiac Disease - @46, Hypertension, Diabetes - father, Other - father had "skin CA in eye" - Social History Occupation: Employed Full-time Lives: With Family Alcohol Use: None Hx Substance Use: No Substance Use Type: Reports: None Hx Tobacco Use: No Smoking Status (MU): Never Smoked Tobacco Have You Smoked in the Last Year: No Review of Systems Constitutional: Negative Eyes: Negative Cardiovascular: Negative Respiratory: Negative Positive: no symptoms reported, see HPI Positive: Arthralgia - left dorsum foot pain Skin: Negative Neurological: Negative All Other Systems Reviewed And Are Negative: Yes Physical Exam Triage Information Reviewed: Yes Vital Signs On Initial Exam: Initial Vitals Temp Pulse Resp BP Pulse Ox 98.3 F 94 16 125/88 97 11/25/16 13:44 11/25/16 13:44 11/25/16 13:44 11/25/16 13:44 11/25/16 13:44 Vital Signs Reviewed: Yes Appearance: Positive: Well-Appearing, Well-Nourished Skin: Positive: Warm, Skin Color Reflects Adequate Perfusion, Other - ecchymosis and erythema to the dorsum of the left foot Head/Face: Positive: Normal Head/Face Inspection Eyes: Positive: EOMI, LOUISA, Conjunctiva Clear Neck: Positive: Supple, Nontender, No Lymphadenopathy Respiratory/Lung Sounds: Positive: Clear to Auscultation, Breath Sounds Present Cardiovascular: Positive: Normal, RRR, Pulses are Symmetrical in both Upper and Lower Extremities Musculoskeletal: Positive: Pain @ - left dorsum of the foot Neurological: Positive: Speech Normal Psychiatric: Positive: Normal AVPU Assessment: Alert Diagnostics - Vital Signs Vital Signs Temp Pulse Resp BP Pulse Ox 11/25/16 13:44 98.3 F 94 16 125/88 97 - Laboratory Lab Statement: Any lab studies that have been ordered have been reviewed, and results considered in the medical decision making process. Lower Extremity Course/Dx - Course Course Of Treatment: Xray performed: INDICATION: Left foot injury. COMPARISON : None. TECHNIQUE: AP, lateral, and oblique views were obtained. FINDINGS: The bony structures, joint spaces, and soft tissues are normal for age. IMPRESSION: NEGATIVE EXAMINATION. ROM OK. Strength limited. Ashley test negative. Limited ROM. Dorsiflexion, great toe extension and plantar flexion intact however limited. No pain on palpation over medial or lateral lower extremity. No pain with knee flexion. Pulses intact bilaterally. No temperature change or pallor noted bilaterally. Ecchymosis and swelling noted on lateral aspect of the dorsum of the foot over 5th metatarsal. No lesion or disruption of skin is seen. Able to bear weight. - Diagnoses Differential Diagnosis/HQI/PQRI: Positive: Contusion, Sprain, Strain Provider Diagnoses: Contusion Discharge - Discharge Plan Condition: Stable Disposition: HOME Patient Education Materials: Foot Contusion (ED) Forms: *Work Release Referrals: Sharita Braun MD [Primary Care Provider] - Additional Instructions: Ibuprofen 600mg three times daily with meals for pain. If numbness, tingling, decreased sensation, increased pain, temperature changes or pallor noted in toes, come back to ER immediately. Protect the area. For your comfort level, do not bear weight, pull or push until you can injury is somewhat healed. This may involve the need for immobilization or crutches for a period of time. Rest the involved area, but not too long. You may need to be off your injury for some time to allow for healing, however excessive immobilization of joints can lead to stiffness and delay healing time. Early mobilization is encouraged if it is pain-free. Ice. Not directly on the skin. Cover with a towel. Apply ice no more than 30 minutes at a time Compression: You may use and keep an kenrick wrap bandage over the injury to decrease swelling. Again, this should be limited and be taken off periodically to encourage early range of motion and mobilization. Elevate: Try to elevate the injured area above the heart whenever possible.
--- NOTE | 2016-11-25 14:54 | RAD ---
INDICATION: Left foot injury COMPARISON: None TECHNIQUE: AP, lateral, and oblique views were obtained. FINDINGS: The bony structures, joint spaces, and soft tissues are normal for age. IMPRESSION: NEGATIVE EXAMINATION.
== END | disposition home or self-care (01) ==
LOC: ED 13:22
DX: S90.32XA Contusion of left foot, initial encounter (principal); W22.8XXA Striking against or struck by other objects, initial encounter; M79.672 Pain in left foot; Y93.9 Activity, unspecified; Y92.9 Unspecified place or not applicable
CPT/HCPCS: 99281

== ENCOUNTER 2017-02-03 22:57 | Emergency (ER) | payer BC ==
[2017-02-04] MEDS ORDERED: Naproxen TAB* 250 MG PO ONE (01:20)
--- NOTE | 2017-02-04 01:21 | ED ---
Throat Pain/Nasal Congestion - HPI Summary HPI Summary: 37 female presents to ED with complaints of right sided jaw pain, with clicking that has been ongoing for the past couple of weeks and has worsened over the past few days. States she was taking ibuprofen and left over norco with minimal relief. Ibuprofen helped more. Admits to clicking at times. Pain also radiated into right ear and she states it feels stuff and experiences tinnitus at times. Denies fever/chills, dental pain/infection and drainage from here. Admits to some radiation into neck under right jaw. Denies swelling, bruising, recent trauma/injury. Opening and using jaw makes pain worse. No other complaints. Immunizations are UTD. NO exposure to tetanus and is immunized. No rashes. - History of Current Complaint Chief Complaint: EDGeneral Time Seen by Provider: 02/03/17 23:51 Hx Obtained From: Patient Onset/Duration: Sudden Onset, Lasting Weeks, Still Present, Worse Since Severity: Moderate Cough: None - Allergies/Home Medications Allergies/Adverse Reactions: Allergies Allergy/AdvReac Type Severity Reaction Status Date / Time Penicillins Allergy Severe Hives Verified 11/25/16 13:44 Oxycodone [From Percocet] Allergy Mild Nausea Verified 11/25/16 13:44 Diphenhydramine Allergy Itching Verified 11/25/16 13:44 [From Benadryl] Erythromycin Allergy Nausea And Verified 11/25/16 13:44 Vomiting Latex Allergy Itching Verified 11/25/16 13:44 Levetiracetam [From Keppra] Allergy Altered Verified 11/25/16 13:44 Mental Status Morphine Allergy Itching Verified 11/25/16 13:44 Tramadol Allergy Nausea Verified 11/25/16 13:44 sunflower seeds AdvReac Unknown cold sores Uncoded 11/25/16 13:44 PMH/Surg Hx/FS Hx/Imm Hx Endocrine/Hematology History: Reports: Hx Thyroid Disease - HYPOTHYROID Denies: Hx Diabetes Cardiovascular History: Reports: Other Cardiovascular Problems/Disorders - CARDIAC ARRYTHMIA SEEN A FEW YEARS AGO Denies: Hx Hypertension, Hx Pacemaker/ICD Respiratory History: Denies: Hx Asthma, Hx Chronic Obstructive Pulmonary Disease (COPD) GI History: Denies: Hx Ulcer History: Denies: Hx Renal Disease Musculoskeletal History: Denies: Hx Rheumatoid Arthritis, Hx Osteoporosis, Hx Scoliosis Sensory History: Denies: Hx Hearing Aid Neurological History: Reports: Hx Migraine Denies: Hx Headaches, Other Neuro Impairments/Disorders Psychiatric History: Reports: Hx Anxiety, Hx Depression Denies: Hx Panic Disorder - Surgical History Surgery Procedure, Year, and Place: R humerus; L knee tendon, WISDOM TEETH - Immunization History Date of Tetanus Vaccine: UTD Date of Influenza Vaccine: NONE Immunizations Up to Date: Yes Infectious Disease History: No Infectious Disease History: Denies: Hx Clostridium Difficile, Hx Hepatitis, Hx Human Immunodeficiency Virus (HIV), Hx of Known/Suspected MRSA, Hx Shingles, Hx Tuberculosis, Hx Known/ Suspected VRE, Hx Known/Suspected VRSA, History Other Infectious Disease, Traveled Outside the [place] in Last 30 Days - Family History Known Family History: Positive: Cardiac Disease - @46, Hypertension, Diabetes - father, Other - father had "skin CA in eye" - Social History Alcohol Use: None Hx Substance Use: No Substance Use Type: Reports: None Hx Tobacco Use: No Smoking Status (MU): Never Smoked Tobacco Have You Smoked in the Last Year: No Review of Systems Constitutional: Negative Positive: Ear Ache - tinnitus at times , Other - jaw pain Cardiovascular: Negative Respiratory: Negative Skin: Negative Neurological: Negative All Other Systems Reviewed And Are Negative: Yes Physical Exam Triage Information Reviewed: Yes Vital Signs On Initial Exam: Initial Vitals Temp Pulse Resp BP Pulse Ox 97.1 F 81 20 129/95 100 02/03/17 23:03 02/03/17 23:03 02/03/17 23:03 02/03/17 23:03 02/03/17 23:03 Vital Signs Reviewed: Yes Appearance: Positive: Well-Appearing, No Pain Distress, Well-Nourished Skin: Positive: Warm, Skin Color Reflects Adequate Perfusion, Dry. Negative: Cold, Cyanosis @, Pale, Erythema @ Head/Face: Positive: Normal Head/Face Inspection, TMJ Tenderness - right side, patient also points to this area where pain is located. Negative: Temporal Artery Tenderness Eyes: Positive: Normal, EOMI, LOUISA, Conjunctiva Clear ENT: Positive: Normal ENT inspection, Hearing grossly normal, Pharynx normal, TMs normal. Negative: TM bulging, TM dull, TM red, Tonsillar swelling, Tonsillar exudate, Trismus Dental: Negative: Percussion Tenderness @, Dental Fracture @, Abscess @, Cervical Lymphadenopathy Neck: Positive: Supple, Nontender, No Lymphadenopathy Respiratory/Lung Sounds: Positive: Clear to Auscultation, Breath Sounds Present. Negative: Rales, Rhonchi, Wheezes Cardiovascular: Positive: Normal, RRR, Pulses are Symmetrical in both Upper and Lower Extremities. Negative: Murmur, Rub Musculoskeletal: Positive: Normal, Strength/ROM Intact Neurological: Positive: Normal, Sensory/Motor Intact, Alert, Oriented to Person Place, Time - [place]iels Coma Scale Coma Scale Total: 15 Diagnostics - Vital Signs Vital Signs Temp Pulse Resp BP Pulse Ox 02/03/17 23:03 97.1 F 81 20 129/95 100 - Laboratory Lab Statement: Any lab studies that have been ordered have been reviewed, and results considered in the medical decision making process. EENT Course/Dx - Course Course Of Treatment: due to symptoms, PE findings and no known trauma or injury no further imaging or work up required. appears patient is describing worsening TMJ disorder. will attempt first line measures such as heat/ice, rest, exercise , and naproxen for 10-14days. Educated on TMJ disorder. Will follow up with pcp/ dentist. Aware of worsening signs and symptoms to be aware of. No sign of dental abscess/infection etiology. Immunizations are UTD. no travel outside of country. no concern for other emergent etiology at this time. - Differential Diagnoses Differential Diagnoses: Dental Abscess, Dental Caries, Fractured Tooth, Mastoiditis, Otitis Externa, Otitis Media, Sinusitis, Temporal Arteritis, Trigeminal Neuralgia, TMJ Syndrome - Diagnoses Provider Diagnoses: TMJ (temporomandibular joint syndrome), Jaw pain Discharge - Discharge Plan Condition: Stable Disposition: HOME Prescriptions: Naproxen TAB* [Naprosyn 375 mg TAB*] 375 mg PO Q8H #24 tab Patient Education Materials: Temporomandibular Disorder (ED) Referrals: Sharita Braun MD [Primary Care Provider] - Additional Instructions: Take prescribed naproxen as directed, with food. Already prescribed norco fo break through pain. Rest jaw, apply heat/ice. Do exercises as instructed. Any new or worsening symptoms please seek medical attention. Follow up with dentist and pcp.
[2017-02-04 01:37] VITALS: BP 116/75
== END 2017-02-04 01:44 | disposition home or self-care (01) ==
LOC: ED 22:57
DX: M26.601 Right temporomandibular joint disorder, unspecified (principal); R68.84 Jaw pain
CPT/HCPCS: 99282; A9270-GY

== ENCOUNTER 2017-04-24 02:01 | Emergency (ER) | payer BC ==
[2017-04-24] MEDS ORDERED: Ketorolac INJ* 30 MG/ML 1 ML VIAL IV PUSH ONE (02:32)
[2017-04-24 02:55] LABS: ABS Basophils 0.1 10^3/ul (0-0.2); ABS Eosinophils 0.2 10^3/ul (0-0.6); ABS Lymphocytes 1.8 10^3/ul (1.0-4.8); ABS Monocytes 0.7 10^3/ul (0-0.8); ABS Neutrophils 4.2 10^3/ul (1.5-7.7); ABS Nucleated RBC 0 10^3/ul; Eosinophil % 2.9 % (0-6); Hematocrit 42 % (35-47); Hemoglobin 14.1 g/dl (12.0-16.0); Lymphocyte % 25.3 % (25-47); Mean Corpuscular HGB Conc 34 g/dl (31-36); Mean Corpuscular Hemoglobin 31 pg (27-31); Mean Corpuscular Volume 92 fL (80-97); Mean Platelet Volume 10 um3 (7.4-10.4); Nucleated Red Blood Cells % 0; Platelet Count 233 10^3/ul (150-450); Red Cell Distribution Width 13 % (10.5-15)
[2017-04-24 03:05] LABS: EGFR Non-African American 84.7 (>60)
[2017-04-24 03:08] LABS: INR 1.01 (0.77-1.02)
--- NOTE | 2017-04-24 04:10 | ED ---
Russ Zimmerman Stephanie, scribed for Radha Dougherty MD on 04/24/17 at 0236 . HPI Chest Pain - History of Current Complaint Chief Complaint: EDChestPainROMI Time Seen by Provider: 04/24/17 02:14 Hx Obtained From: Patient Hx Last Menstrual Period: 09/24/16 Onset/Duration: Started Weeks Ago - 2, Still Present, Worse Since - yesterday Timing: Constant Pain Intensity: 8 Pain Scale Used: 0-10 Numeric Chest Pain Location: Mid Sternal Chest Pain Radiates: Yes Chest Pain Radiates To:: Arm - bilaterally, Other - teeth Character: Sharp/Stabbing, Tightness Aggravating Factor(s): Deep Breaths, Other: - ambulation Alleviating Factor(s): Nothing Associated Signs and Symptoms: Positive: Chest Pain - Allergy/Home Medications Allergies/Adverse Reactions: Allergies Allergy/AdvReac Type Severity Reaction Status Date / Time Penicillins Allergy Severe Hives Verified 04/24/17 02:13 Oxycodone [From Percocet] Allergy Mild Nausea Verified 04/24/17 02:13 Diphenhydramine Allergy Itching Verified 04/24/17 02:13 [From Benadryl] Erythromycin Allergy Nausea And Verified 04/24/17 02:13 Vomiting Latex Allergy Itching Verified 04/24/17 02:13 Levetiracetam [From Keppra] Allergy Altered Verified 04/24/17 02:13 Mental Status Morphine Allergy Itching Verified 04/24/17 02:13 Tramadol Allergy Nausea Verified 04/24/17 02:13 sunflower seeds AdvReac Unknown cold sores Uncoded 04/24/17 02:13 PMH/Surg Hx/FS Hx/Imm Hx Endocrine/Hematology History: Reports: Hx Thyroid Disease - HYPOTHYROID Denies: Hx Diabetes Cardiovascular History: Reports: Other Cardiovascular Problems/Disorders - CARDIAC ARRYTHMIA SEEN A FEW YEARS AGO Denies: Hx Hypertension, Hx Pacemaker/ICD Respiratory History: Denies: Hx Asthma, Hx Chronic Obstructive Pulmonary Disease (COPD) GI History: Denies: Hx Ulcer History: Denies: Hx Renal Disease Musculoskeletal History: Denies: Hx Rheumatoid Arthritis, Hx Osteoporosis, Hx Scoliosis Sensory History: Denies: Hx Hearing Aid Neurological History: Reports: Hx Migraine Denies: Hx Headaches, Other Neuro Impairments/Disorders Psychiatric History: Reports: Hx Anxiety, Hx Depression Denies: Hx Panic Disorder - Surgical History Surgery Procedure, Year, and Place: R humerus; L knee tendon, WISDOM TEETH - Immunization History Date of Tetanus Vaccine: unk Date of Influenza Vaccine: unk Infectious Disease History: Denies: Hx Clostridium Difficile, Hx Hepatitis, Hx Human Immunodeficiency Virus (HIV), Hx of Known/Suspected MRSA, Hx Shingles, Hx Tuberculosis, Hx Known/ Suspected VRE, Hx Known/Suspected VRSA, History Other Infectious Disease - Family History Known Family History: Positive: Cardiac Disease - @46, Hypertension, Diabetes - father, Other - father had "skin CA in eye" - Social History Occupation: Unemployed Lives: With Family Alcohol Use: None Hx Substance Use: No Substance Use Type: Reports: None Hx Tobacco Use: No Smoking Status (MU): Never Smoked Tobacco Have You Smoked in the Last Year: No Review of Systems Negative: Fever Positive: Dental Pain - radiates from chest Positive: Chest Pain All Other Systems Reviewed And Are Negative: Yes Physical Exam - Summary Physical Exam Summary: VITAL SIGNS: Reviewed. GENERAL: Patient is a well-developed and nourished FEMALE who is lying comfortable in the stretcher. Patient is not in any acute respiratory distress. HEAD AND FACE: No signs of trauma. No ecchymosis, hematomas or skull depressions. No sinus tenderness. EYES: PERRLA, EOMI x 2, No injected conjunctiva, no nystagmus. EARS: Hearing grossly intact. Ear canals and tympanic membranes are within normal limits. MOUTH: Oropharynx within normal limits. NECK: Supple, trachea is midline, no adenopathy, no JVD, no carotid bruit, no c- spine tenderness, neck with full ROM. CHEST: Symmetric, no tenderness at palpation LUNGS: Clear to auscultation bilaterally. No wheezing or crackles. CVS: Regular rate and rhythm, S1 and S2 present, no murmurs or gallops appreciated. ABDOMEN: Soft, non-tender. No signs of distention. No rebound no guarding, and no masses palpated. Bowel sounds are normal. EXTREMITIES: FROM in all major joints, no edema, no cyanosis or clubbing. NEURO: Alert and oriented x 3. No acute neurological deficits. Speech is normal and follows commands. SKIN: Dry and warm Triage Information Reviewed: Yes Vital Signs Reviewed: Yes - [place] Coma Scale Coma Scale Total: 15 Diagnostics - Laboratory Result Diagrams: 04/24/17 02:20 04/24/17 02:20 Lab Statement: Any lab studies that have been ordered have been reviewed, and results considered in the medical decision making process. - Radiology CXR Xray Interpretation: No Acute Changes - No acute process. Pending official results. Radiology Interpretation Completed By: ED Physician - EKG 02:10 EKG Rhythm: Sinus Rhythm - 85 BPM EKG Interpretation: Normal axis. Normal interval. No ischemic changes Chest Pain Course/Dx - Course Course Of Treatment: Pt is feeling better. ED physician discussed results of CXR (-) and troponin(-) with pt. Pt will be discharged. Pt is advised to take OTC pain medications when needed. Follow up with PCP. - Diagnoses Provider Diagnoses: Atypical chest pain, Chest wall pain Discharge - Discharge Plan Condition: Stable Disposition: HOME Patient Education Materials: Chest Pain (ED), Chest Wall Pain (ED) Referrals: Sharita Braun MD [Primary Care Provider] - The documentation as recorded by the Russ sanchez Stephanie accurately reflects the service I personally performed and the decisions made by Ladonna trujillo Abdul, MD.
[2017-04-24 04:17] VITALS: BP 118/76
--- NOTE | 2017-04-24 07:44 | RAD ---
HISTORY: Chest pain COMPARISONS: October 29, 2016 VIEWS: 1: frontal portable view of the chest at 2:45 AM FINDINGS: LINES AND TUBES: None. CARDIOMEDIASTINAL SILHOUETTE: The cardiomediastinal silhouette is normal for portable technique. PLEURA: The costophrenic angles are sharp. No pleural abnormalities are noted. LUNG PARENCHYMA: The lungs are clear. ABDOMEN: The upper abdomen is clear. There is no subphrenic gas. BONES AND SOFT TISSUES: No bone or soft tissue abnormalities are noted. IMPRESSION: NO ACTIVE CARDIOPULMONARY DISEASE.
== END 2017-04-24 04:17 | disposition home or self-care (01) ==
LOC: ED 02:01
DX: R07.89 Other chest pain (principal); K08.89 Other specified disorders of teeth and supporting structures
CPT/HCPCS: 36415; 71045; 80053; 83735; 84484; 84702; 85025; 85610; 85730; 93005; 96374; 99282; J1885

== ENCOUNTER 2017-05-11 10:38 | Emergency (ER) | payer BC ==
--- NOTE | 2017-05-11 12:54 | UC ---
Dental HPI - HPI Summary HPI Summary: STARTED ON CLINDAMYCIN 2 DAYS AGO FOR TOOTH INFECTION BY [employer]. WENT TO [facility] AND WAS TOLD THEY DID NOT ACCEPT HER INSURANCE. PT HAS AN APPT WITH AN ALTERNATE DENTIST NEXT WEDNESDAY BUT IS HERE BECAUSE THE PAIN IS UNBEARABLE. IBUPROFEN NOT HELPING. PT ALSO REQUESTING TEST. HAS HAD SEVERAL DAYS OF URINARY FREQUENCY, FATIGUE AND INTERMITTENT NAUSEA. LMP 1 MONTH AGO. PT STATES SHE IS 2 DAYS LATE. HOME TEST LAST WEEK NEGATIVE. DENIES FEVER. NO PAIN WITH URINATION. - History of Current Complaint Chief Complaint: UCDentalProblem Stated Complaint: DENTAL PAIN Time Seen by Provider: 05/11/17 12:37 Hx Obtained From: Patient, Family/Ballet Teacher - Hx Last Menstrual Period: 4 weeks Onset/Duration: Gradual Onset, Lasting Days, Still Present Severity: Moderate Pain Intensity: 10 - SITTING IN ROOM IN NO ACUTE DISTRESS Pain Scale Used: 0-10 Numeric Aggravating Factor(s): Cold, Chewing Alleviating Factor(s): Nothing Related History: Previous Dental Care on Same Tooth - Allergies/Home Medications Allergies/Adverse Reactions: Allergies Allergy/AdvReac Type Severity Reaction Status Date / Time MS Penicillins [Penicillins] Allergy Severe Hives Verified 05/11/17 11:45 MS Oxycodone [From Percocet] Allergy Mild Nausea Verified 05/11/17 11:45 MS Diphenhydramine Allergy Itching Verified 05/11/17 11:45 [From Benadryl] MS Erythromycin Allergy Nausea And Verified 05/11/17 11:45 [Erythromycin] Vomiting MS Latex [Latex] Allergy Itching Verified 05/11/17 11:45 MS Levetiracetam Allergy Altered Verified 05/11/17 11:45 [From Keppra] Mental Status MS Morphine [Morphine] Allergy Itching Verified 05/11/17 11:45 MS Tramadol [Tramadol] Allergy Nausea Verified 05/11/17 11:45 sunflower seeds AdvReac Unknown cold sores Uncoded 05/11/17 11:45 Home Medications: Home Medications Ibuprofen TAB* [Motrin TAB* 600 MG] 800 mg PO Q6H PRN 05/11/17 [History Confirmed 05/11/17] ValACYclovir (*) [Valtrex 1 GM(*)] 1 gm PO TID PRN 05/11/17 [History Confirmed 05/11/17] PMH/Surg Hx/FS Hx/Imm Hx Endocrine History: Hypothyroidism Psychological History: Depression - Surgical History Surgical History: Yes Surgery Procedure, Year, and Place: R humerus; L knee tendon, WISDOM TEETH - Family History Known Family History: Positive: Cardiac Disease - @46, Hypertension, Diabetes - father, Other - father had "skin CA in eye" - Social History Alcohol Use: None Substance Use Type: None Smoking Status (MU): Never Smoked Tobacco Have You Smoked in the Last Year: No - Immunization History Most Recent Tetanus Shot: 9 years ago Review of Systems Constitutional: Fatigue ENT: Dental Pain, Ear Ache Respiratory: Negative Cardiovascular: Negative Gastrointestinal: Nausea Genitourinary: Frequency All Other Systems Reviewed And Are Negative: Yes Physical Exam Triage Information Reviewed: Yes Appearance: Well-Appearing, No Pain Distress, Well-Nourished Vital Signs: Initial Vital Signs Temp 98.4 F 05/11/17 11:37 Pulse 87 05/11/17 11:37 Resp 20 05/11/17 11:37 BP 118/85 05/11/17 11:37 Pulse Ox 100 05/11/17 11:37 Vital Signs Reviewed: Yes Eyes: Positive: Conjunctiva Clear ENT: Positive: Hearing grossly normal Dental: Positive: Gross Decay/Caries @. Negative: Percussion Tenderness @, Cervical Lymphadenopathy Neck: Positive: Supple, Nontender, No Lymphadenopathy Respiratory: Positive: No respiratory distress, No accessory muscle use Cardiovascular: Positive: Pulses Normal Abdomen Description: Positive: Nontender, Soft. Negative: CVA Tenderness (R), CVA Tenderness (L), Distended, Guarding Musculoskeletal: Positive: No Edema Neurological: Positive: Alert Psychological: Positive: Normal Response To Family, Age Appropriate Behavior Skin: Negative: rashes Diagnostics - Laboratory Diagnostic Studies Completed/Ordered: URINE DIP SP. GR. 1.005, 1+ LEUKS, TRACE BLOOD. URINE HCG NEGATIVE Dental Complaint Course/Dx - Course Course Of Treatment: CORE PILER REVIEWED. Reference #: [id number] - Differential Dx/Diagnosis Provider Diagnoses: 1. LEFT UPPER DENTAL PAIN. 2. URINARY FREQUENCY Discharge - Discharge Plan Condition: Stable Disposition: HOME Prescriptions: Chlorhexidine MW 0.12% 473ML* [Peridex Mouth Wash 0.12%*] 15 ml SWISH SPIT BID # 1 bottle HYDROcodone/ACETAMIN 5-325 MG* [[place] 5-325 TAB*] 1 tab PO Q6H PRN #20 tab MDD 4 PRN Reason: Pain Patient Education Materials: Toothache (ED) Referrals: Sharita Braun MD [Primary Care Provider] - If Needed Additional Instructions: KEEP YOUR DENTAL APPT NEXT WEEK. CONTINUE YOUR CLINDAMYCIN PRESCRIBED. USE THE PAIN MEDS NEEDED AND THE MOUTHWASH TWICE DAILY. URINE TEST NEGATIVE FOR . SPECIMEN SENT FOR CULTURE TO ENSURE NO UTI. AGAIN - CONTINUE CLINDA.
[2017-05-11 14:23] VITALS: BP 116/86
== END 2017-05-11 13:55 | disposition home or self-care (01) ==
LOC: UCEAST 10:38
DX: K08.89 Other specified disorders of teeth and supporting structures (principal); R35.0 Frequency of micturition; Z32.02 Encounter for pregnancy test, result negative; E03.9 Hypothyroidism, unspecified; F32.9 Major depressive disorder, single episode, unspecified; Z88.5 Allergy status to narcotic agent; Z88.0 Allergy status to penicillin; Z88.1 Allergy status to other antibiotic agents; Z91.040 Latex allergy status
CPT/HCPCS: 81003; 81025; 87086; 99212; G0463

== ENCOUNTER 2017-06-18 21:10 | Emergency (ER) | payer BC ==
[2017-06-19] MEDS ORDERED: Ketorolac INJ* 30 MG/ML 1 ML VIAL IV PUSH ONE (00:50)
[2017-06-19] MEDS ORDERED: methylPREDNISolone 125 MG* 2 ML VIAL IV ONE (00:51)
[2017-06-19] MEDS ORDERED: Metoclopramide IV* 5 MG/ML 2 ML VIAL IV ONE (00:51)
[2017-06-19 02:40] VITALS: BP 106/66
--- NOTE | 2017-06-19 08:51 | RAD ---
INDICATION: Headache x7 days COMPARISON: Similar brain CT dated January 01, 2015 TECHNIQUE: Contiguous axial sections of the brain were obtained from the skull base to the vertex without contrast. FINDINGS: The ventricles, cisterns and sulci are within normal limits. The del cid-white matter differentiation is adequately maintained and there is no sulcal effacement. No significant focal abnormality or mass effect is present. There is no evidence for intracranial hemorrhage. No significant focal osseous abnormality is present. The visualized portion of the paranasal sinuses appear clear. The mastoid air cells are well aerated bilaterally. IMPRESSION: Normal CT of the brain.
--- NOTE | 2017-06-19 15:28 | ED ---
Zaki Zimmerman Sixian, scribed for Yadiel Devries MD on 06/19/17 at 0050 . Headache - HPI Summary HPI Summary: This patient is a 37 year old F presenting to ED with a chief complaint of PARHAM since 7 days ago. PARHAM is located on the left side. The patient rates the pain 8/ 10 in severity. Symptoms aggravated by lying down. Symptoms alleviated by ibuprofen. Patient reports intermittent nausea, dizziness, confusion, LE weakness and difficulty ambulating. Pt report initial severe nausea followed by headaches, she reported seeing occasional white spots with no chnage in vision. - History Of Current Complaint Chief Complaint: EDHeadache Stated Complaint: HEADACHE/X7 DAYS Time Seen by Provider: 06/19/17 00:33 Hx Obtained From: Patient Hx Last Menstrual Period: 4 weeks Onset/Duration: Gradual Onset, Started days ago, Still Present Currently Pain Is: Current Pain Scale(0-10)= - 8/10 Timing: Constant, Days Location of Headache: Other: - left side Aggravating Factor: Nothing Allevating Factors: Nothing Associated Signs And Symptoms: Other (Noted In Comments) - Patient reports nausea, dizziness, confusion, LE weakness and difficulty ambulating. - Allergies/Home Medications Allergies/Adverse Reactions: Allergies Allergy/AdvReac Type Severity Reaction Status Date / Time MS Penicillins [Penicillins] Allergy Severe Hives Verified 05/11/17 11:45 MS Oxycodone [From Percocet] Allergy Mild Nausea Verified 05/11/17 11:45 MS Diphenhydramine Allergy Itching Verified 05/11/17 11:45 [From Benadryl] MS Erythromycin Allergy Nausea And Verified 05/11/17 11:45 [Erythromycin] Vomiting MS Latex [Latex] Allergy Itching Verified 05/11/17 11:45 MS Levetiracetam Allergy Altered Verified 05/11/17 11:45 [From Keppra] Mental Status MS Morphine [Morphine] Allergy Itching Verified 05/11/17 11:45 MS Tramadol [Tramadol] Allergy Nausea Verified 05/11/17 11:45 sunflower seeds AdvReac Unknown cold sores Uncoded 05/11/17 11:45 PMH/Surg Hx/FS Hx/Imm Hx Endocrine/Hematology History: Reports: Hx Thyroid Disease - HYPOTHYROID Denies: Hx Diabetes Cardiovascular History: Reports: Other Cardiovascular Problems/Disorders - CARDIAC ARRYTHMIA SEEN A FEW YEARS AGO Denies: Hx Hypertension, Hx Pacemaker/ICD Respiratory History: Denies: Hx Asthma, Hx Chronic Obstructive Pulmonary Disease (COPD) GI History: Denies: Hx Ulcer History: Denies: Hx Renal Disease Musculoskeletal History: Denies: Hx Rheumatoid Arthritis, Hx Osteoporosis, Hx Scoliosis Sensory History: Denies: Hx Hearing Aid Neurological History: Reports: Hx Migraine Denies: Hx Headaches, Other Neuro Impairments/Disorders Psychiatric History: Reports: Hx Anxiety, Hx Depression Denies: Hx Panic Disorder - Surgical History Surgery Procedure, Year, and Place: R humerus; L knee tendon, WISDOM TEETH - Immunization History Date of Tetanus Vaccine: unk Date of Influenza Vaccine: unk Infectious Disease History: No Infectious Disease History: Denies: Hx Clostridium Difficile, Hx Hepatitis, Hx Human Immunodeficiency Virus (HIV), Hx of Known/Suspected MRSA, Hx Shingles, Hx Tuberculosis, Hx Known/ Suspected VRE, Hx Known/Suspected VRSA, History Other Infectious Disease, Traveled Outside the [place] in Last 30 Days - Family History Known Family History: Positive: Cardiac Disease - @46, Hypertension, Diabetes - father, Other - father had "skin CA in eye" - Social History Alcohol Use: None Hx Substance Use: No Substance Use Type: Reports: None Hx Tobacco Use: No Smoking Status (MU): Never Smoked Tobacco Have You Smoked in the Last Year: No Review of Systems Positive: Nausea Positive: Other - LE weakness and difficulty ambulating Neurological: Other - Dizziness, confusion All Other Systems Reviewed And Are Negative: Yes Physical Exam - Summary Physical Exam Summary: Appearance: Well-appearing, no distress, Well-nourished Skin: Warm, color reflects adequate perfusion Head: Normal Head/Face inspection. Eyes: Conjunctiva clear, EOMI, PEERLA, Fundi normal ENT: Normal inspection Neck: Supple, no nodes, no meningismus Respiratory: Lungs clear, Normal breath sounds, no respiratory distress Cardio: RRR, No murmur, pulses normal, brisk capillary refill Abdomen: soft, nontender, no guarding, no rebound Bowel sounds: present Musculoskeletal: Strength Intact/ ROM intact. No calf tenderness. No edema. Neuro: Alert, muscle tone normal, facial symmetry, speech normal, sensory/motor intact, CN intact II-XII; Psychological: Normal Triage Information Reviewed: Yes Vital Signs On Initial Exam: Initial Vitals Temp Pulse Resp BP Pulse Ox 96.1 F 79 20 146/91 98 06/18/17 21:10 06/18/17 21:10 06/18/17 21:10 06/18/17 21:10 06/18/17 21:10 Vital Signs Reviewed: Yes Diagnostics - Vital Signs Vital Signs Temp Pulse Resp BP Pulse Ox 06/18/17 23:01 97.9 F 81 132/85 100 06/18/17 21:10 96.1 F 79 20 146/91 98 - Laboratory Lab Statement: Any lab studies that have been ordered have been reviewed, and results considered in the medical decision making process. - CT head CT Interpretation Completed By: Radiologist - Head CT reveals no intra or extra- axial hemorrhage or collection. No mass lesion or midline shift. The ventricles are normal in size and are midline in position. Normal del cid white matter differentiation. The calvarium is intact. The visualized paranasal sinuses and mastoid air cells are clear. ED physician has reviewed this radiology report. Re-Evaluation - Re-Evaluation First Eval Re-Evaluation Time: 02:29 Change: Improved - Pt headache resolved. pt resting comfortably in bed. pt repeat CN exam intact II-XII Headache Course/Dx - Course Course Of Treatment: Pt with nondescript headache resolved with IV analgesia. Plan symptomatic tx with Neuro f/u. - Diagnoses Differential Diagnosis/HQI/PQRI: CVA, Epidural Hematoma, Subdural Hematoma, Meningitis, Migraine, Sinus Headache, Subarachnoid Hemorrhage, Temporal Arteritis, Tension Headache, Viral Syndrome Provider Diagnoses: Headache Discharge - Discharge Plan Condition: Improved Disposition: HOME Prescriptions: Butalb/Acetamin/Caff TAB* [Fioricet TAB*] 1 tab PO Q6H PRN 5 Days #20 tab MDD 4 tabs PRN Reason: Headache/Pain Patient Education Materials: Acute Headache (ED) Referrals: Sharita Braun MD [Primary Care Provider] - Jass Norwood MD [Medical Doctor] - As Soon As Possible Additional Instructions: RETURN TO THE EMERGENCY DEPARTMENT FOR CHANGING OR WORSENING SYMPTOMS. The documentation as recorded by the Zaki sanchez Sixian accurately reflects the service I personally performed and the decisions made by , Yadiel Devries MD.
== END 2017-06-19 02:42 | disposition home or self-care (01) ==
LOC: ED 21:10
DX: R51 Headache (principal); E03.9 Hypothyroidism, unspecified; I49.9 Cardiac arrhythmia, unspecified
CPT/HCPCS: 70450; 96374; 96375; 99283; J1885; J2765; J2930

== ENCOUNTER 2017-11-12 00:15 | Emergency (ER) | payer SELFPAY ==
[2017-11-12] MEDS ORDERED: oxyCODONE TAB* 5 MG TAB PO ONE (00:54)
--- NOTE | 2017-11-12 00:55 | ED ---
Abdominal Pain/Female - HPI Summary HPI Summary: This is scribe Brodie Vega documenting for attending Sinan Heard MD. This patient is a 37 year old F presenting to [facility] with a chief complaint of L flank pain since 2 days ago. The pain worsened yesterday and tonight. The patient rates the pain 8/10 in severity currently. Patient reports frequent urination (starting a few months ago), sometimes mild dysuria (with pressure but no burning pain), irregular menstrual bleeding, nausea (last week), and chills. Patient denies hematuria, vomiting, and fever. She has a PMHx of UTI, kidney infection, hypothyroidism, and HTN. She denies a PSHx on her abdomen. I, Dr. Heard, personally performed the services described in this documentation as scribed in my presence and it is both accurate and complete. - History of Current Complaint Chief Complaint: EDFlankPain Stated Complaint: FLANK PAIN Time Seen by Provider: 11/12/17 00:48 Hx Obtained From: Patient Hx Last Menstrual Period: 4 weeks Onset/Duration: Still Present, Worse Since - Yesterday and tonight Timing: Constant Severity Initially: Mild Severity Currently: Severe Pain Intensity: 8 Pain Scale Used: 0-10 Numeric Location: Flank - R flank Associated Signs and Symptoms: Positive: Urinary Symptoms - Frequent urination ( starting a few months ago), sometimes mild dysuria (with pressure but no burning pain). Denies hematuria., Vaginal Bleeding - Irregular menstrual bleeding, Nausea - last week, Other: - Chills. Negative: Fever, Vomiting Allergies/Adverse Reactions: Allergies Allergy/AdvReac Type Severity Reaction Status Date / Time MS Penicillins [Penicillins] Allergy Severe Hives Verified 05/11/17 11:45 MS Diphenhydramine Allergy Itching Verified 05/11/17 11:45 [From Benadryl] MS Erythromycin Allergy Nausea And Verified 05/11/17 11:45 [Erythromycin] Vomiting MS Latex [Latex] Allergy Itching Verified 05/11/17 11:45 MS Levetiracetam Allergy Altered Verified 05/11/17 11:45 [From Keppra] Mental Status MS Morphine [Morphine] Allergy Itching Verified 05/11/17 11:45 MS Tramadol [Tramadol] Allergy Nausea Verified 05/11/17 11:45 sunflower seeds AdvReac Unknown cold sores Uncoded 05/11/17 11:45 PMH/Surg Hx/FS Hx/Imm Hx Endocrine/Hematology History: Reports: Hx Thyroid Disease - HYPOTHYROID Denies: Hx Diabetes Cardiovascular History: Reports: Other Cardiovascular Problems/Disorders - CARDIAC ARRYTHMIA SEEN A FEW YEARS AGO Denies: Hx Hypertension, Hx Pacemaker/ICD Respiratory History: Denies: Hx Asthma, Hx Chronic Obstructive Pulmonary Disease (COPD) GI History: Denies: Hx Ulcer History: Denies: Hx Renal Disease Musculoskeletal History: Denies: Hx Rheumatoid Arthritis, Hx Osteoporosis, Hx Scoliosis Sensory History: Denies: Hx Hearing Aid Neurological History: Reports: Hx Migraine Denies: Hx Headaches, Other Neuro Impairments/Disorders Psychiatric History: Reports: Hx Anxiety, Hx Depression Denies: Hx Panic Disorder - Surgical History Surgery Procedure, Year, and Place: R humerus; L knee tendon, WISDOM TEETH - Immunization History Date of Tetanus Vaccine: unk Date of Influenza Vaccine: unk Infectious Disease History: Yes Infectious Disease History: Denies: Hx Clostridium Difficile, Hx Hepatitis, Hx Human Immunodeficiency Virus (HIV), Hx of Known/Suspected MRSA, Hx Shingles, Hx Tuberculosis, Hx Known/ Suspected VRE, Hx Known/Suspected VRSA, History Other Infectious Disease, Traveled Outside the [place] in Last 30 Days - Family History Known Family History: Positive: Cardiac Disease - @46, Hypertension, Diabetes - father, Other - father had "skin CA in eye" - Social History Occupation: Unemployed Lives: With Family Alcohol Use: None Hx Substance Use: No Substance Use Type: Reports: None Hx Tobacco Use: No Smoking Status (MU): Never Smoked Tobacco Have You Smoked in the Last Year: No Review of Systems Positive: Chills. Negative: Fever Positive: Abdominal Pain - L flank pain since 2 days ago, Nausea - last week. Negative: Vomiting Positive: dysuria - mild dysuria (with pressure but no burning pain), frequency - frequent urination starting a few months ago, other - irregular menstrual bleeding (pre-existing). Negative: hematuria All Other Systems Reviewed And Are Negative: Yes Physical Exam - Summary Physical Exam Summary: Appearance: Well-appearing, Well-nourished, lying in bed comfortably Skin: Warm, dry, no obvious rash Eyes: sclera anicteric, no conjunctival pallor ENT: mucous membranes moist, pharynx appears normal Neck: Supple, nontender Respiratory: Clear to auscultation, no signs of respiratory distress Cardiovascular: Normal S1, S2. No murmurs. Normal distal pulses in tibial and radial bilaterally. Abdomen: L abdominal tenderness without peritoneal signs, has L sided CVA tenderness, normal active bowel sounds present Musculoskeletal: Normal, Strength/ROM Intact Neurological: A&Ox3, awake and alert, mentation is normal, speech is fluent and appropriate Psychiatric: affect is normal, does not appear anxious or depressed L abd tenderness without peritoneal signs Has L sided CVA tenderness Triage Information Reviewed: Yes Vital Signs On Initial Exam: Initial Vitals Temp Pulse Resp BP Pulse Ox 98.4 F 94 16 142/93 98 11/12/17 00:25 11/12/17 00:25 11/12/17 00:25 11/12/17 00:25 11/12/17 00:25 Vital Signs Reviewed: Yes Diagnostics - Vital Signs Vital Signs Temp Pulse Resp BP Pulse Ox 11/12/17 00:25 98.4 F 94 16 142/93 98 - Laboratory Result Diagrams: 11/12/17 01:06 11/12/17 01:06 Lab Statement: Any lab studies that have been ordered have been reviewed, and results considered in the medical decision making process. Abdominal Pain Fem Course/Dx - Diagnoses Differential Diagnosis: Positive: Renal Colic, Urinary Tract Infection Provider Diagnoses: Pyelonephritis Discharge - Sign-Out/Discharge Documenting (check all that apply): Patient Departure - Discharge Plan Condition: Good Disposition: HOME Prescriptions: Nitrofurantoin Monohyd/M-Cryst [Macrobid 100 mg Capsule] 100 mg PO BID #20 cap Oxycodone HCl 5 mg PO Q4HR PRN #10 tab MDD 4 tabs PRN Reason: Pain Patient Education Materials: Kidney Infection (ED) Referrals: Sharita Braun MD [Primary Care Provider] - - Billing Disposition and Condition Condition: GOOD Disposition: Home
[2017-11-12 01:18] LABS: ABS Basophils 0.1 10^3/ul (0-0.2); ABS Eosinophils 0.2 10^3/ul (0-0.6); ABS Lymphocytes 2.5 10^3/ul (1.0-4.8); ABS Monocytes 0.8 10^3/ul (0-0.8); ABS Nucleated RBC 0 10^3/ul; Eosinophil % 2.4 % (0-6); Hematocrit 38 % (35-47); Hemoglobin 13.2 g/dl (12.0-16.0); Lymphocyte % 29.5 % (25-47); Mean Corpuscular HGB Conc 34 g/dl (31-36); Mean Corpuscular Hemoglobin 31 pg (27-31); Mean Corpuscular Volume 89 fL (80-97); Mean Platelet Volume 8.7 um3 (7.4-10.4); Nucleated Red Blood Cells % 0; Platelet Count 214 10^3/ul (150-450); Red Blood Count 4.32 10^6/ul (4.00-5.40); Red Cell Distribution Width 13 % (10.5-15); White Blood Count 8.6 10^3/ul (3.5-10.8)
[2017-11-12 01:37] LABS: EGFR Non-African American 72.5 (>60)
[2017-11-12 01:58] LABS: Urine Appearance Turbid; Urine Blood 1+ (Negative); Urine Color Amber; Urine Ketones Negative (Negative); Urine Protein 2+(100 mg/dL) (Negative); Urine Red Blood Cell 3+(>10/hpf) (Absent); Urine Specific Gravity 1.019 (1.010-1.030); Urine Urobilinogen Negative (Negative); Urine White Blood Cell 3+(>20/hpf) (Absent)
[2017-11-12] MEDS ORDERED: Nitrofurantoin Macrocrystals* 100 MG CAP PO ONE (02:52)
[2017-11-12 03:09] VITALS: BP 127/81
== END 2017-11-12 03:06 | disposition home or self-care (01) ==
LOC: ED 00:15
DX: N12 Tubulo-interstitial nephritis, not specified as acute or chronic (principal); E03.9 Hypothyroidism, unspecified; I10 Essential (primary) hypertension; Z87.440 Personal history of urinary (tract) infections; Z88.0 Allergy status to penicillin; Z88.3 Allergy status to other anti-infective agents; Z88.5 Allergy status to narcotic agent
CPT/HCPCS: 36415; 80053; 81003; 81015; 84702; 85025; 87086; 99283; A9270-GY

== ENCOUNTER 2017-11-22 00:49 | Emergency (ER) | payer SELFPAY ==
[2017-11-22 01:38] LABS: ABS Basophils 0.2 10^3/ul (0-0.2); ABS Eosinophils 0.5 10^3/ul (0-0.6); ABS Monocytes 0.5 10^3/ul (0-0.8); ABS Neutrophils 4.4 10^3/ul (1.5-7.7); ABS Nucleated RBC 0 10^3/ul; Eosinophil % 6.4 % (0-6); Hematocrit 38 % (35-47); Hemoglobin 13.4 g/dl (12.0-16.0); Lymphocyte % 25.8 % (25-47); Mean Corpuscular HGB Conc 35 g/dl (31-36); Mean Corpuscular Hemoglobin 31 pg (27-31); Mean Corpuscular Volume 87 fL (80-97); Mean Platelet Volume 8.4 um3 (7.4-10.4); Nucleated Red Blood Cells % 0; Platelet Count 238 10^3/ul (150-450); Red Blood Count 4.36 10^6/ul (4.00-5.40); Red Cell Distribution Width 13 % (10.5-15); White Blood Count 7.6 10^3/ul (3.5-10.8)
[2017-11-22] MEDS ORDERED: Ketorolac INJ* 30 MG/ML 1 ML VIAL IV PUSH ONE (01:50)
--- NOTE | 2017-11-22 01:50 | ED ---
HPI Chest Pain - HPI Summary HPI Summary: This is Jasson sanchez documenting for attending physician Peter Nieto MD. This patient is a 37 year old F BIBA to [facility] accompanied by her partner with a chief complaint of chest tightness that began yesterday. The patient rates the pain 1/10 in severity. Symptoms aggravated by deep breathing and movement. Patient reports nausea, fatigue, and SOB. Patient denies cough, palpitations, and urinary sx. Pt is taking medication for a kidney infection. - History of Current Complaint Chief Complaint: EDChestPainROMI Time Seen by Provider: 11/22/17 01:41 Hx Obtained From: Patient Hx Last Menstrual Period: 4 weeks Onset/Duration: Started Days Ago, Still Present Timing: Constant, Lasting Days Initial Severity: Mild Current Severity: Mild Pain Intensity: 1 Pain Scale Used: 0-10 Numeric Chest Pain Location: Mid Sternal Chest Pain Radiates: No Character: Tightness Associated Signs and Symptoms: Positive: Other: - nausea, fatigue, and SOB - Allergy/Home Medications Allergies/Adverse Reactions: Allergies Allergy/AdvReac Type Severity Reaction Status Date / Time levetiracetam [From Keppra] Allergy Altered Verified 11/22/17 00:56 Mental Status diphenhydramine AdvReac Itching Verified 11/22/17 00:56 [From Benadryl] erythromycin base AdvReac Nausea And Verified 11/22/17 00:56 Vomiting latex AdvReac Itching Verified 11/22/17 00:56 morphine AdvReac Itching Verified 11/22/17 00:56 Penicillins AdvReac Hives Verified 11/22/17 00:56 tramadol AdvReac Nausea Verified 11/22/17 00:56 sunflower seeds AdvReac Unknown cold sores Uncoded 05/11/17 11:45 Home Medications: Home Medications Topiramate [Topiramate ER 50 mg cap] 50 mg PO DAILY 11/22/17 [History Confirmed 11/22/17] PMH/Surg Hx/FS Hx/Imm Hx Endocrine/Hematology History: Reports: Hx Thyroid Disease - HYPOTHYROID Denies: Hx Diabetes Cardiovascular History: Reports: Other Cardiovascular Problems/Disorders - CARDIAC ARRYTHMIA SEEN A FEW YEARS AGO Denies: Hx Hypertension, Hx Pacemaker/ICD Respiratory History: Denies: Hx Asthma, Hx Chronic Obstructive Pulmonary Disease (COPD) GI History: Denies: Hx Ulcer History: Reports: Hx Kidney Infection Denies: Hx Renal Disease Musculoskeletal History: Denies: Hx Rheumatoid Arthritis, Hx Osteoporosis, Hx Scoliosis Sensory History: Denies: Hx Hearing Aid Neurological History: Reports: Hx Migraine Denies: Hx Headaches, Other Neuro Impairments/Disorders Psychiatric History: Reports: Hx Anxiety, Hx Depression Denies: Hx Panic Disorder - Surgical History Surgery Procedure, Year, and Place: R humerus; L knee tendon, WISDOM TEETH - Immunization History Date of Tetanus Vaccine: utd Date of Influenza Vaccine: none Infectious Disease History: No Infectious Disease History: Denies: Hx Clostridium Difficile, Hx Hepatitis, Hx Human Immunodeficiency Virus (HIV), Hx of Known/Suspected MRSA, Hx Shingles, Hx Tuberculosis, Hx Known/ Suspected VRE, Hx Known/Suspected VRSA, History Other Infectious Disease, Traveled Outside the [place] in Last 30 Days - Family History Known Family History: Positive: Cardiac Disease - @46, Hypertension, Diabetes - father, Other - father had "skin CA in eye" - Social History Occupation: Employed Part-time, Student Alcohol Use: None Hx Substance Use: No Substance Use Type: Reports: None Hx Tobacco Use: No Smoking Status (MU): Never Smoked Tobacco Have You Smoked in the Last Year: No Review of Systems Positive: Fatigue Positive: Chest Pain. Negative: Palpitations Positive: Shortness Of Breath. Negative: Cough Positive: Nausea Positive: no symptoms reported All Other Systems Reviewed And Are Negative: Yes Physical Exam - Summary Physical Exam Summary: appearance: Well appearing, no pain distress, thin Skin: warm, dry, reflects adequate perfusion Head/face: normal Eyes: EOMI, LOUISA ENT: normal Neck: supple, non-tender Respiratory: CTA, breath sounds present Cardiovascular: RRR, pulses symmetrical Abdomen: non-tender, soft Bowel Sounds: present Musculoskeletal: strength/ROM intact, reproducible CP with palpation Neuro: normal, sensory motor intact, A&Ox3 Triage Information Reviewed: Yes Vital Signs On Initial Exam: Initial Vitals Temp Pulse Resp BP Pulse Ox 99.0 F 87 18 151/96 100 11/22/17 00:50 11/22/17 00:50 11/22/17 00:50 11/22/17 00:50 11/22/17 00:50 Vital Signs Reviewed: Yes Diagnostics - Vital Signs Vital Signs Temp Pulse Resp BP Pulse Ox 11/22/17 00:50 99.0 F 87 18 151/96 100 - Laboratory Lab Results: Lab Results 11/22/17 Range/Units 01:28 WBC 7.6 (3.5-10.8) 10^3/ul RBC 4.36 (4.00-5.40) 10^6/ul Hgb 13.4 (12.0-16.0) g/dl Hct 38 (35-47) % MCV 87 (80-97) fL MCH 31 (27-31) pg MCHC 35 (31-36) g/dl RDW 13 (10.5-15) % Plt Count 238 (150-450) 10^3/ul MPV 8.4 (7.4-10.4) um3 Neut % (Auto) 58.1 (38-83) % Lymph % (Auto) 25.8 (25-47) % Marion % (Auto) 7.1 H (0-7) % Eos % (Auto) 6.4 H (0-6) % Baso % (Auto) 2.6 H (0-2) % Absolute Neuts (auto) 4.4 (1.5-7.7) 10^3/ul Absolute Lymphs (auto) 2.0 (1.0-4.8) 10^3/ul Absolute Monos (auto) 0.5 (0-0.8) 10^3/ul Absolute Eos (auto) 0.5 (0-0.6) 10^3/ul Absolute Basos (auto) 0.2 (0-0.2) 10^3/ul Absolute Nucleated RBC 0 10^3/ul Nucleated RBC % 0 Result Diagrams: 11/22/17 01:28 11/22/17 01:28 Lab Statement: Any lab studies that have been ordered have been reviewed, and results considered in the medical decision making process. - CT CT chest CT Interpretation Completed By: Radiologist - 1. No evidence of pulmonary embolic disease. 2. No evidence of an aortic dissection or aneurysm. 3. 5 mm pulmonary nodule located just superior to the aortic arch seen on images there is a second nodule located in the right super hilar region. These are not seen on the regular reconstructed images and may represent artifacts due to the minute reconstruction. 4. No pulmonary consolidation. No pleural effusion or pneumothorax. ED physician has reviewed this radiology report. - EKG 0110 Cardiac Rate: NL EKG Rhythm: Sinus Rhythm - at [address] Segment: Normal EKG Interpretation: nml axis Re-Evaluation - Re-Evaluation First Eval Re-Evaluation Time: 04:43 Change: Improved Comment: The patient has improved and is ready to go home. Chest Pain Course/Dx - Course Course Of Treatment: Patient with pleuritic chest pain and elevated d-dimer with negative EKG, troponin. A CT PE protocol was obtained which showed no pulmonary embolism. Her areas that appeared to may have been pulmonary nodules but radiologist feels these are artifact. Patient was feeling much better and was discharged on GI meds plus NSAID. She will follow-up with primary care physician closely. - Chest Pain Differential Diagnosis/HQI/PQRI: ACS, GI Disease, Lower Respiratory Infection, Pulmonary Edema, Pulmonary Embolism - Diagnoses Provider Diagnoses: Pleuritic chest pain Discharge - Sign-Out/Discharge Documenting (check all that apply): Patient Departure - Discharge Plan Condition: Improved Disposition: HOME Prescriptions: Famotidine TAB* [Pepcid 20 MG TAB*] 20 mg PO BID #20 tab Sucralfate TAB* [Carafate*] 1 gm PO ACHS #40 tab Patient Education Materials: Chest Pain (ED) Referrals: Sharita Braun MD [Primary Care Provider] - Additional Instructions: Ibuprofen as needed. Deep breathing exercises. Discontinue ibuprofen if this making it worse. There is possibility that this is GI related. Call first thing in the morning to follow-up with her primary care physician. Return if worse, new symptoms or other concerns as discussed. - Billing Disposition and Condition Condition: IMPROVED Disposition: Home Attestation Statement Scribe Attestation: This is Jasson sanchez documenting for attending physician Peter Nieto,
[2017-11-22] MEDS ORDERED: Aspirin 81 mg CHEW TAB* 81 MG TAB.CHEW PO ONE (01:51)
[2017-11-22] MEDS ORDERED: NS 0.9% 1000 ML* 1,000 ML IV ONE (01:51)
[2017-11-22 01:56] LABS: EGFR Non-African American 79.9 (>60)
[2017-11-22 02:42] LABS: Urine Appearance Clear; Urine Blood 1+ (Negative); Urine Color Yellow; Urine Ketones Negative (Negative); Urine Protein Negative (Negative); Urine Red Blood Cell 1+(3-5/hpf) (Absent); Urine Urobilinogen Negative (Negative); Urine White Blood Cell Trace(0-5/hpf) (Absent)
[2017-11-22] MEDS ORDERED: Iohexol 350* (CONTRAST) 500 ML MDV IV ONE (03:16)
--- NOTE | 2017-11-22 04:29 | RAD ---
HISTORY: CP/Pleuritic pain, elev Ddimer COMPARISONS: May 17, 2013 TECHNIQUE: Multiple contiguous axial CT scans of the chest were obtained after the administration of nonionic intravenous contrast, timed to the pulmonary arterial phase of contrast enhancement.. Coronal and sagittal multiplanar reformations are also submitted for review. Initial images were nondiagnostic secondary to suboptimal contrast opacification. Repeat contrast injection was performed. The subsequent images are of diagnostic quality. FINDINGS: NECK AND THYROID: The lower neck and thyroid are unremarkable. CHEST WALL: There is no lower cervical, axillary, or supraclavicular lymphadenopathy by size criteria. HEART AND PERICARDIUM: The heart is unremarkable. AORTA AND PULMONARY VASCULATURE: There is no pulmonary arterial filling defect to suggest pulmonary embolism. There is no linear filling defect within the aorta to suggest aortic dissection. MEDIASTINUM: There is no mediastinal lymphadenopathy by size criteria. JASMEET: There is no hilar lymphadenopathy by size criteria. AIRWAY AND ESOPHAGUS: The airway is unremarkable, without endobronchial filling defect. The esophagus is grossly normal. LUNG PARENCHYMA: There is a 0.5 cm nodule on coronal image 46 of series 603.2, located within the left upper lobe just superior to the aortic arch. PLEURA: No pleural abnormalities are noted. UPPER ABDOMEN: The upper abdomen is unremarkable. BONES AND SOFT TISSUES: No bone or soft tissue abnormalities are noted. OTHER: None. IMPRESSION: 1. NO PULMONARY ARTERIAL FILLING DEFECT TO SUGGEST PULMONARY EMBOLISM. 2. 0.5 CM NODULE OF THE LEFT UPPER LOBE. THE RECOMMENDATIONS FOR FOLLOWUP AND MANAGEMENT OF AN INCIDENTALLY DETECTED PULMONARY NODULE LESS THAN 6 MM IN SIZE, IN A PATIENT WITHOUT A HISTORY OF MALIGNANCY, INCLUDE NO FOLLOWUP FOR A LOW-RISK PATIENT OR OPTIONAL FOLLOWUP CT IN 12 MONTHS FOR A HIGH RISK PATIENT. NOTES: SIZE = AVERAGE LENGTH AND WIDTH; HIGH RISK IS DEFINED A HISTORY OF SMOKING OR OTHER KNOW RISK FACTORS FOR LUNG CANCER; LOW RISK IS DEFINED MINIMAL OR ABSENT HISTORY OF SMOKING OR OTHER KNOWN RISK FACTORS. Marvin H, FADY Alejandra, SARBJIT Marino, et al (2017) "Guidelines for Management of Incidental Pulmonary Nodules Detected on CT Images: From the Fleischner Society 2017." Radiology; 284(1): 228-243. doi:10.1148/radiol.[id number] R0
[2017-11-22 04:57] VITALS: BP 125/73
== END 2017-11-22 04:59 | disposition home or self-care (01) ==
LOC: ED 00:49
DX: R07.9 Chest pain, unspecified (principal); R11.0 Nausea; R53.83 Other fatigue; R06.02 Shortness of breath
CPT/HCPCS: 36415; 71275; 80053; 81003; 81015; 83605; 83735; 84484; 84702; 85025; 85379; 87086; 93005; 96361; 96374; 99283; A9270-GY; J1885; Q9967

== ENCOUNTER 2018-01-28 23:39 | Emergency (ER) | payer BC ==
--- NOTE | 2018-01-29 00:21 | ED ---
Complex/Multi-Sys Presentation - HPI Summary HPI Summary: This patient is a 37 year old F presenting to [facility] with a chief complaint of pain in her lymph nodes, pelvic pain, and waxing left-sided abdominal pain since one week ago. Pt had LNMP 2 weeks ago and has experienced some vaginal spotting since. Pt also complains of fatigue. Pt has family Hx of ovarian cancer so she wanted to be seen once the pelvic pain started. She describes the pelvic pain as a waxing sharp stabbing pain that also was a dull pain toward her gluteus. She has experienced nausea, and slight stinging in urination. She also states her urine is somewhat cloudy as well. Pt denies any past abdominal surgeries. The patient rates her pain 4/10 in severity. - History Of Current Complaint Chief Complaint: EDGeneral Hx Obtained From: Patient Severity Currently: Mild Severity Initially: Mild Associated Signs And Symptoms: Positive: Nausea - Allergies/Home Medications Allergies/Adverse Reactions: Allergies Allergy/AdvReac Type Severity Reaction Status Date / Time levetiracetam [From Keppra] Allergy Altered Verified 01/28/18 23:44 Mental Status diphenhydramine AdvReac Itching Verified 01/28/18 23:44 [From Benadryl] erythromycin base AdvReac Nausea And Verified 01/28/18 23:44 Vomiting latex AdvReac Itching Verified 01/28/18 23:44 morphine AdvReac Itching Verified 01/28/18 23:44 Penicillins AdvReac Hives Verified 01/28/18 23:44 tramadol AdvReac Nausea Verified 01/28/18 23:44 sunflower seeds AdvReac Unknown cold sores Uncoded 01/28/18 23:44 PMH/Surg Hx/FS Hx/Imm Hx Endocrine/Hematology History: Reports: Hx Thyroid Disease - HYPOTHYROID Denies: Hx Diabetes Cardiovascular History: Reports: Other Cardiovascular Problems/Disorders - CARDIAC ARRYTHMIA SEEN A FEW YEARS AGO Denies: Hx Hypertension, Hx Pacemaker/ICD Respiratory History: Denies: Hx Asthma, Hx Chronic Obstructive Pulmonary Disease (COPD) GI History: Denies: Hx Ulcer History: Reports: Hx Kidney Infection Denies: Hx Renal Disease Musculoskeletal History: Denies: Hx Rheumatoid Arthritis, Hx Osteoporosis, Hx Scoliosis Sensory History: Denies: Hx Hearing Aid Neurological History: Reports: Hx Migraine Denies: Hx Headaches, Other Neuro Impairments/Disorders Psychiatric History: Reports: Hx Anxiety, Hx Depression Denies: Hx Panic Disorder - Surgical History Surgery Procedure, Year, and Place: R humerus; L knee tendon, WISDOM TEETH - Immunization History Date of Tetanus Vaccine: utd Date of Influenza Vaccine: none Infectious Disease History: No Infectious Disease History: Denies: Hx Clostridium Difficile, Hx Hepatitis, Hx Human Immunodeficiency Virus (HIV), Hx of Known/Suspected MRSA, Hx Shingles, Hx Tuberculosis, Hx Known/ Suspected VRE, Hx Known/Suspected VRSA, History Other Infectious Disease, Traveled Outside the [place] in Last 30 Days - Family History Known Family History: Positive: Cardiac Disease - @46, Hypertension, Diabetes - father, Other - father had "skin CA in eye" - Social History Alcohol Use: None Hx Substance Use: No Substance Use Type: Reports: None Hx Tobacco Use: No Smoking Status (MU): Never Smoked Tobacco Have You Smoked in the Last Year: No Review of Systems Positive: Fatigue. Negative: Fever Positive: Sore Throat Positive: Abdominal Pain, Nausea. Negative: Vomiting, Diarrhea Positive: dysuria All Other Systems Reviewed And Are Negative: Yes Physical Exam - Summary Physical Exam Summary: Appearance: Well-appearing, Well-nourished, lying in bed comfortable Skin: Warm, dry, no obvious rash Eyes: sclera anicteric, no conjunctival pallor ENT: mucous membranes moist Neck: deferred Respiratory: No signs of respiratory distress Cardiovascular: Appears well perfused, pulses are nml Abdomen: deferred Musculoskeletal: Moving all 4 extremities without obvious discomfort Neurological: Awake and alert, mentation is normal, speech is fluent and appropriate Psychiatric: affect is normal, does not appear anxious or depressed Triage Information Reviewed: Yes Vital Signs On Initial Exam: Initial Vitals Temp Pulse Resp BP Pulse Ox 98.3 F 90 16 141/87 100 01/28/18 23:40 01/28/18 23:40 01/28/18 23:40 01/28/18 23:40 01/28/18 23:40 Vital Signs Reviewed: Yes Diagnostics - Vital Signs Vital Signs Temp Pulse Resp BP Pulse Ox 01/28/18 23:40 98.3 F 90 16 141/87 100 - Laboratory Result Diagrams: 01/29/18 00:23 01/29/18 00:23 Lab Statement: Any lab studies that have been ordered have been reviewed, and results considered in the medical decision making process. Complex Multi-Symp Course/Dx Course Of Treatment: This patient is a 37 year old F presenting to [facility] with a chief complaint of pain in her lymph nodes, pelvic pain, and waxing left-sided abdominal pain since one week ago. Lab results were unremarkable for genitourinary disease. Plan for treatment and discharge was discussed with the patient and she was agreeable with this plan. - Diagnoses Provider Diagnoses: Pelvic pain Discharge - Sign-Out/Discharge Documenting (check all that apply): Patient Departure - Discharge Plan Condition: Good Disposition: HOME Patient Education Materials: Pelvic Pain in Women (ED) Referrals: Sharita Braun MD [Primary Care Provider] - Additional Instructions: The staff at [facility] should be able to order an US, which would be the best test to assess your pelvic pain. In the meantime, you can take OTC analgesics such as naproxen or motrin for pain. Your lab work tonight was quite unremarkable. - Attestation Statements Document Initiated by Scribe: Yes Documenting Scribe: Avinash Howell Provider For Whom Arnol is Documenting (Include Credential): Sinan Heard MD Scribe Attestation: Avinash Zimmerman, scribed for Sinan Heard MD on 01/29/18 at 0201.
[2018-01-29 00:33] LABS: ABS Basophils 0 10^3/ul (0-0.2); ABS Eosinophils 0.2 10^3/ul (0-0.6); ABS Monocytes 0.8 10^3/ul (0-0.8); ABS Neutrophils 4.6 10^3/ul (1.5-7.7); ABS Nucleated RBC 0 10^3/ul; Hematocrit 40 % (35-47); Hemoglobin 13.7 g/dl (12.0-16.0); Mean Corpuscular HGB Conc 34 g/dl (31-36); Mean Corpuscular Hemoglobin 31 pg (27-31); Mean Corpuscular Volume 89 fL (80-97); Mean Platelet Volume 8.3 um3 (7.4-10.4); Nucleated Red Blood Cells % 0; Platelet Count 273 10^3/ul (150-450); Red Blood Count 4.46 10^6/ul (4.00-5.40); Red Cell Distribution Width 13 % (10.5-15); White Blood Count 7.7 10^3/ul (3.5-10.8)
[2018-01-29 00:50] LABS: EGFR Non-African American 71.5 (>60)
[2018-01-29 00:54] LABS: Urine Appearance Clear; Urine Blood Negative (Negative); Urine Color Yellow; Urine Ketones Negative (Negative); Urine Protein Negative (Negative); Urine Specific Gravity 1.023 (1.010-1.030); Urine Urobilinogen Negative (Negative)
[2018-01-29 01:43] VITALS: BP 108/63
== END 2018-01-29 01:42 | disposition home or self-care (01) ==
LOC: ED 23:39
DX: R10.2 Pelvic and perineal pain (principal); R30.0 Dysuria; R53.83 Other fatigue; R11.0 Nausea; J02.9 Acute pharyngitis, unspecified; Z80.41 Family history of malignant neoplasm of ovary; Z88.5 Allergy status to narcotic agent; Z88.0 Allergy status to penicillin; Z88.8 Allergy status to other drugs, medicaments and biological substances; Z88.1 Allergy status to other antibiotic agents; Z91.040 Latex allergy status
CPT/HCPCS: 36415; 80053; 81003; 85025; 99282

== ENCOUNTER → 2018-02-01 22:15 | Emergency (ER) | payer BC ==
[~2018-02-01 22:15] MED LIST: Clindamycin CAP* 150 MG PO ONE; HYDROcodone/ACETAMIN 5-325 MG* 1 TAB PO ONE; Ketorolac INJ* 30 MG/ML 1 ML VIAL IM ONE
--- NOTE | 2018-02-01 23:22 | ED ---
Throat Pain/Nasal Congestion - HPI Summary HPI Summary: 37-year-old female presents with dental pain for the past week. States that it is her left upper tooth that hurts. She denies any fevers. No swelling around eyes. No pain with eye movement. No sore throat. No chest pain or shortness breath. Has history of dental infections. Is not currently on antibiotics. Patient taking ibuprofen every 4 hours and has not helped the pain. - History of Current Complaint Chief Complaint: EDDentalPain Time Seen by Provider: 02/01/18 22:49 - Allergies/Home Medications Allergies/Adverse Reactions: Allergies Allergy/AdvReac Type Severity Reaction Status Date / Time levetiracetam [From Keppra] Allergy Altered Verified 02/01/18 22:24 Mental Status diphenhydramine AdvReac Itching Verified 02/01/18 22:24 [From Benadryl] erythromycin base AdvReac Nausea And Verified 02/01/18 22:24 Vomiting latex AdvReac Itching Verified 02/01/18 22:24 morphine AdvReac Itching Verified 02/01/18 22:24 Penicillins AdvReac Hives Verified 02/01/18 22:24 tramadol AdvReac Nausea Verified 02/01/18 22:24 sunflower seeds AdvReac Unknown cold sores Uncoded 02/01/18 22:24 PMH/Surg Hx/FS Hx/Imm Hx Endocrine/Hematology History: Reports: Hx Thyroid Disease - HYPOTHYROID Denies: Hx Diabetes Cardiovascular History: Reports: Other Cardiovascular Problems/Disorders - CARDIAC ARRYTHMIA SEEN A FEW YEARS AGO Denies: Hx Hypertension, Hx Pacemaker/ICD Respiratory History: Denies: Hx Asthma, Hx Chronic Obstructive Pulmonary Disease (COPD) GI History: Denies: Hx Ulcer History: Reports: Hx Kidney Infection Denies: Hx Renal Disease Musculoskeletal History: Denies: Hx Rheumatoid Arthritis, Hx Osteoporosis, Hx Scoliosis Sensory History: Denies: Hx Hearing Aid Neurological History: Reports: Hx Migraine Denies: Hx Headaches, Other Neuro Impairments/Disorders Psychiatric History: Reports: Hx Anxiety, Hx Depression Denies: Hx Panic Disorder - Surgical History Surgery Procedure, Year, and Place: R humerus; L knee tendon, WISDOM TEETH - Immunization History Date of Tetanus Vaccine: utd Date of Influenza Vaccine: none Infectious Disease History: No Infectious Disease History: Denies: Hx Clostridium Difficile, Hx Hepatitis, Hx Human Immunodeficiency Virus (HIV), Hx of Known/Suspected MRSA, Hx Shingles, Hx Tuberculosis, Hx Known/ Suspected VRE, Hx Known/Suspected VRSA, History Other Infectious Disease, Traveled Outside the [place] in Last 30 Days - Family History Known Family History: Positive: Cardiac Disease - @46, Hypertension, Diabetes - father, Other - father had "skin CA in eye" - Social History Alcohol Use: None Hx Substance Use: No Substance Use Type: Reports: None Hx Tobacco Use: No Smoking Status (MU): Never Smoked Tobacco Have You Smoked in the Last Year: No Review of Systems Negative: Fever Positive: Dental Pain Negative: Chest Pain Negative: Shortness Of Breath All Other Systems Reviewed And Are Negative: Yes Physical Exam Triage Information Reviewed: Yes Vital Signs On Initial Exam: Initial Vitals Temp Pulse Resp BP Pulse Ox 97.0 F 96 16 132/87 100 02/01/18 22:22 02/01/18 22:22 02/01/18 22:22 02/01/18 22:22 02/01/18 22:22 Vital Signs Reviewed: Yes Appearance: Positive: Well-Appearing Skin: Positive: Warm, Dry Head/Face: Positive: Normal Head/Face Inspection Eyes: Positive: Normal, Conjunctiva Clear ENT: Positive: Pharynx normal Dental: Positive: Percussion Tenderness @ - 12. Negative: Abscess @ Neck: Positive: Supple, Nontender, No Lymphadenopathy Respiratory/Lung Sounds: Positive: Clear to Auscultation, Breath Sounds Present Cardiovascular: Positive: Normal, RRR Musculoskeletal: Positive: Normal Neurological: Positive: Normal Psychiatric: Positive: Normal Diagnostics - Vital Signs Vital Signs Temp Pulse Resp BP Pulse Ox 02/01/18 22:22 97.0 F 96 16 132/87 100 - Laboratory Lab Statement: Any lab studies that have been ordered have been reviewed, and results considered in the medical decision making process. EENT Course/Dx - Course Course Of Treatment: 37-year-old female presents with dental pain for the past week. States that it is her left upper tooth that hurts. She denies any fevers. No swelling around eyes. No pain with eye movement. No sore throat. No chest pain or shortness breath. Has history of dental infections. Is not currently on antibiotics. Patient taking ibuprofen every 4 hours and has not helped the pain. On exam tenderness to tenderness tooth 30. Will place on clindamycin. told to Taking ibuprofen only every 6 hours. will order a short course of narcotic for pain. Told to follow up with dentist. Patient understands and agrees with plan. - Differential Diagnoses Differential Diagnoses: Dental Abscess, Dental Caries, Fractured Tooth - Diagnoses Provider Diagnoses: Dental infection Discharge - Sign-Out/Discharge Documenting (check all that apply): Patient Departure - Discharge Plan Condition: Good Disposition: HOME Prescriptions: Clindamycin Cap(NF) [Clindamycin Cap 300 mg Cap(NF)] 300 mg PO TID #20 cap HYDROcodone/ACETAMIN 5-325 MG* [Talmage 5-325 TAB*] 1 tab PO Q6H PRN #8 tab MDD 4 PRN Reason: Pain Patient Education Materials: Toothache (ED) Referrals: Sharita Braun MD [Primary Care Provider] - Additional Instructions: Take clindamycin three times a day for 7 days Take ibuprofen every 6 hours for pain as needed, use narcotic for break through pain every 6 hours Avoid hard, crunchy food until seen by dentist Return to ED if develop fever, shortness of breath, pain with eye movement or swelling around eye - Billing Disposition and Condition Condition: GOOD Disposition: Home Images - Images Dental: 1 - tenderness
[2018-02-01 23:44] VITALS: BP 112/63
== END | disposition home or self-care (01) ==
LOC: ED 22:15
DX: K04.7 Periapical abscess without sinus (principal); K08.89 Other specified disorders of teeth and supporting structures
CPT/HCPCS: 96372; 99282; A9270-GY; J1885

== ENCOUNTER 2018-03-22 21:30 | Emergency (ER) | payer BC ==
--- OUTSIDE RECORDS SUMMARY | 2018-03-22 21:45 | XMS REPORT | Continuity of Care Document ---
:1980 External Reference #:[id number] Author Name Shawanda Quinonez Care Team Providers Name Role Phone Sharita Braun MD Primary Care Physician Unavailable Payers Type Date Identification Numbers Payment Provider Subscriber Policy Number: [id number] [employer] Nikki Yodit TalaveraLozastefan Tillmano PayID: [id number] [address] [address] [place] [address] Effective: 2012 Policy Number: [id number] [employer] Floyd Contento Expires: 2017 PayID: [id number] [address] [address] [place] [address] Advance Directives Description No Information Available Problems Date Description Provider Status Onset: 07/02/2015 Headache Jass Norwood M.D. Active Family History Date Family Member(s) Problem(s) Comments General Diabetes General Heart Disease General Cancer Mother Coronary Artery Disease (CAD) Aunt Ovarian Cancer Aunt Breast Cancer Social History Type Date Description Comments Sex Unknown Lives With Spouse Occupation Student ETOH Use Denies alcohol use Tobacco Use Start: Unknown Patient has never smoked Recreational Drug Use Denies Drug Use Smoking Status Reviewed: 03/21/18 Patient has never smoked Exercise Type/Frequency Exercises regularly Allergies, Adverse Reactions, Alerts Date Description Reaction Status Severity Comments 09/05/2013 Erythromycin Active 09/05/2013 Morphine Active itching 09/05/2013 Benadryl Active 09/05/2013 Tramadol Active 09/05/2013 Latex Active 07/02/2015 Keppra Active 07/02/2015 Penicillins Active 03/10/2018 Nitrofurantoin Nausea Active Medications Medication Date Status Form Strength Qnty SIG Indications Ordering Provider Levothyroxine Active Tablet 125mcg 1 by Unknown Sodium 000 mouth every day Topiramate Active Tablet 50mg 1 by Unknown 000 mouth every day Wellbutrin XL Active Tablets ER 1 by Unknown 000 24HR mouth every day Vitamin D Active daily Unknown [address] 20mg 1 by Unknown 000 mouth twice a day Cipro XR Hx Unknown 000 - 016 Immunizations Description No Information Available Vital Signs Date Vital Result Comment 03/21/2018 2:35pm Heart Rate 72 /min Respiratory Rate 16 /min Body Temperature 97.9 F 03/10/2018 8:41am Height 65 inches 5'5" Weight 118.00 lb Heart Rate 72 /min BP Systolic 128 mmHg BP Diastolic 84 mmHg Respiratory Rate 16 /min Body Temperature 96.6 F BMI (Body Mass Index) 19.6 kg/m2 07/02/2015 9:12am Height 65 inches 5'5" Weight 141.00 lb Heart Rate 72 /min BP Systolic Sitting 118 mmHg BP Diastolic Sitting 84 mmHg Respiratory Rate 16 /min BMI (Body Mass Index) 23.5 kg/m2 12/26/2014 2:03pm Height 65 inches 5'5" Weight 125.00 lb Pain Level 1 BMI (Body Mass Index) 20.8 kg/m2 08/22/2014 8:12am Height 65 inches 5'5" Weight 140.00 lb Pain Level 7 BMI (Body Mass Index) 23.3 kg/m2 06/06/2014 2:41pm Height 65 inches 5'5" Weight 140.00 lb Pain Level 7 BMI (Body Mass Index) 23.3 kg/m2 Results Test Date Facility Test Result H/L Range Note Laboratory test 03/16/2018 [facility] Surgical SEE RESULT 1 , [address] [address] [phone] Laboratory test 07/28/2010 [facility] Topomax 3.3 g/mL 2.0- 20.0 [address] (Topiramate) [place] [address] [phone] 1 [id number] 2 SEE RESULT BELOW Name: NIKKI HARE : [address]: Felicia Ruiz MD Acct: [id number] Unit: [id number] AGE: 38 Location: [facility] Re03/16/18 SEX: F Status: REG REF SPEC: [id number] NITHYA: 03/16/18-[address] [facility] [address]: Mingo Sheth MD REQ: [id number] RECD: 03/16/18 STATUS: JACKSON SERRANO DR: Felicia Ruiz MD _ ORDERED: LEVEL 4 COMMENTS: [id number] FINAL DIAGNOSIS Breast, left, core biopsies: -- Benign breast tissue with nodular stromal fibrosis with pseudo- angiomatous stromal hyperplasia and sclerosing adenosis. -- No evidence of atypia or neoplasia identified. Comment: Correlation with imaging findings recommended. PRE-OPERATIVE DIAGNOSIS Left breast mass at 2:00, 6.0 cm from nipple, 3.1 x 0.6 x 1.7 cm GROSS DESCRIPTION The specimen is received in formalin labeled, Left Breast Core Biopsies, and consists of three mcgowan-white to pink fibrofatty soft tissue cores ranging from 1.0 x 0.3 cm to 1.5 x 0.3 cm which are submitted entirely in one cassette. Signed by and Reported on: Ulices Soria MD 1015 END OF REPORT DEPARTMENT OF PATHOLOGY, [address] [place] [address] Ulices Soria M.D. Director CLIA # [id number] 3 Test Performed by: [facility] Dpt of Lab Med and Pathology [address] [place] [address] Associate Pastor: Giles Quiros III, M.D. 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 Z87.820 Personal history 9:00a [facility] Norwood M.D. of traumatic brain injury R51 Headache Office Visit 12/26/2014 [facility] M22.2x2 Patellofemoral 2:00p [facility], left C.M.A. knee Office Visit 08/22/2014 [facility] 719.86 Joint Disorder 8:00a [facility] Other Spec Lower C.M.A. Leg 719.46 Pain Joint Lower Leg Office Visit 06/06/2014 1:30p [facility] 844.1 [facility]um-C Knee Medial C.M.A. Collateral Ligament Office Visit 03/02/2012 10:30a [facility] Barbie Ledezma, 844.1 [facility]-C Knee Medial C.M.A. Collateral Ligament Office Visit 02/17/2012 9:30a [facility] Miranda, 836.0 Dislocation Knee [facility] Tear Of Medial C.M.A. Cartilage Or Meniscus [facility] Plan of Treatment Future Appointment(s):05/09/2018 9:00 am - Felicia Ruiz MD at [facility]04/13/2018 1:00 pm - Vivian Jerome NP at [facility]04/29/2018 7:30 am - Anh Tovar MD at [facility]04/29/2018 7:30 am - Felicia Ruiz MD at [facility]05/03/2018 1:00 pm - Felicia Ruiz MD at [facility]03/21/2018 - Felicia Ruiz, MDD48.62 Neoplasm of uncertain behavior of left breastFollow up: We will schedule you for left breast excisional biopsy. Please return to the office for a pre-operative history and physical.
--- OUTSIDE RECORDS SUMMARY | 2018-03-22 21:45 | XMS REPORT | Continuity of Care Document ---
:1980 External Reference #:[id number] Author Name Shawanda Quinonez Care Team Providers Name Role Phone Sharita Braun MD Primary Care Physician Unavailable Payers Type Date Identification Numbers Payment Provider Subscriber Policy Number: [id number] BS Facets Nikki Yodit TalaveraLozastefan Tillmano PayID: [id number] [address] [address] [place] [address] Effective: 2012 Policy Number: [id number] BS Facets Floyd Contento Expires: 2017 PayID: [id number] [address] [address] [place] [address] Advance Directives Description No Information Available Problems [...] Use Denies Drug Use Smoking Status Reviewed: 03/10/18 Patient has never smoked Exercise Type/Frequency Exercises [...] day Vitamin D Active daily Unknown 000 Cipro XR Hx Unknown 000 - 016 Immunizations Description No Information Available Vital Signs Date Vital Result Comment 03/10/2018 8:41am Height 65 inches 5'5" Weight [...] Test Result H/L Range Note Laboratory test 07/28/2010 [facility] Topomax 3.3 g/mL 2.0- 20.0 [address] (Topiramate) [place] [address] [phone] 1 Test Performed by: [facility] Dpt of Lab Med and Pathology [address] [place] [address] Technology Education Teacher: Giles Quiros III, M.D. Procedures Date Code Description Status 02/23/2018 [id number] Mammogram Completed 07/14/2012 81675 Rad Exam; Ankle Comp Completed 06/22/2012 15479 Rad Exam; Ankle Comp Completed 06/08/2012 78437 Rad Exam; Ankle Comp Completed 06/08/2012 54295 Short Leg Cast Completed 06/02/2012 11643 CLSD TX Distal Fib FX (Lateral Malleolus) w/o Completed manipulation 06/02/2012 82275 Closed TX Prox/Shaft Fibula W/O Manip Completed Encounters Type Date Location Provider Dx Diagnosis Office Visit 07/02/2015 [facility] Z87.820 Personal history 9:00a [facility] Nor[facility] M.D. of traumatic brain injury R51 Headache Office Visit 12/26/2014 [facility] M22.2x2 Patellofemoral 2:00p [facility] disorders, left C.M.A. knee Office Visit 08/22/2014 [facility] 719.86 Joint Disorder 8:00a [facility] Other Spec Lower C.M.A. Leg 719.46 Pain Joint Lower Leg Office Visit 06/06/2014 1:30p [facility] 844.1 [facility] Knee Medial C.M.A. Collateral Ligament Office Visit 03/02/2012 10:30a [facility] Barbie Ledezma 844.1 [facility] Knee Medial C.M.A. Collateral Ligament Office Visit 02/17/2012 9:30a [facility] Miranda, 836.0 Dislocation Knee [facility] Tear Of Medial C.M.A. Cartilage Or Meniscus [facility] Plan of Treatment Future Appointment(s):03/21/2018 2:30 pm - Felicia Ruiz MD at [facility]03/10/2018 - Felicia Ruiz, MDD48.62 Neoplasm of uncertain behavior of left breastFollow up:You will have a left breast core needle biopsy scheduled. Please return to clinic to see me after it is done so we can discuss the pathology result and surgery if you are still have pain from the mass.
--- NOTE | 2018-03-22 23:19 | ED ---
GI/ HPI - HPI Summary HPI Summary: 38-year-old female presents with flank pain urgency and frequency for the past couple days. She denies any abnormal vaginal discharge. She states she has a history of GI upset. She also admits to nausea for a long time. No fevers. No cough. No chest pain or shortness of breath. She states her cat did land on her flank the other day. denies any rash. States has had UTIs before. No blood in her urine. No diarrhea no constipation. - History of Current Complaint Chief Complaint: EDUrogenitalProblems Time Seen by Provider: 03/22/18 23:06 Stated Complaint: LOWER BACK PAIN Hx Last Menstrual Period: 4 weeks Pain Intensity: 8 - Allergy/Home Medications Allergies/Adverse Reactions: Allergies Allergy/AdvReac Type Severity Reaction Status Date / Time levetiracetam [From Keppra] Allergy Altered Verified 03/16/18 12:12 Mental Status diphenhydramine AdvReac Itching Verified 03/16/18 12:12 [From Benadryl] erythromycin base AdvReac Nausea And Verified 03/16/18 12:12 Vomiting latex AdvReac Itching Verified 03/16/18 12:12 morphine AdvReac Itching Verified 03/16/18 12:12 Penicillins AdvReac Hives Verified 03/16/18 12:12 tramadol AdvReac Nausea Verified 03/16/18 12:12 sunflower seeds AdvReac Unknown cold sores Uncoded 03/16/18 12:12 PMH/Surg Hx/FS Hx/Imm Hx Endocrine/Hematology History: Reports: Hx Thyroid Disease - HYPOTHYROID Denies: Hx Diabetes Cardiovascular History: Reports: Other Cardiovascular Problems/Disorders - CARDIAC ARRYTHMIA SEEN A FEW YEARS AGO Denies: Hx Hypertension, Hx Pacemaker/ICD Respiratory History: Denies: Hx Asthma, Hx Chronic Obstructive Pulmonary Disease (COPD) GI History: Denies: Hx Ulcer History: Reports: Hx Kidney Infection Denies: Hx Renal Disease Musculoskeletal History: Denies: Hx Rheumatoid Arthritis, Hx Osteoporosis, Hx Scoliosis Sensory History: Denies: Hx Hearing Aid Neurological History: Reports: Hx Migraine Denies: Hx Headaches, Other Neuro Impairments/Disorders Psychiatric History: Reports: Hx Anxiety, Hx Depression Denies: Hx Panic Disorder - Cancer History Hx Chemotherapy: No Hx Radiation Therapy: No - Surgical History Surgery Procedure, Year, and Place: R humerus; L knee tendon, WISDOM TEETH - Immunization History Date of Tetanus Vaccine: utd Date of Influenza Vaccine: none Infectious Disease History: No Infectious Disease History: Denies: Hx Clostridium Difficile, Hx Hepatitis, Hx Human Immunodeficiency Virus (HIV), Hx of Known/Suspected MRSA, Hx Shingles, Hx Tuberculosis, Hx Known/ Suspected VRE, Hx Known/Suspected VRSA, History Other Infectious Disease, Traveled Outside the [place] in Last 30 Days - Family History Known Family History: Positive: Cardiac Disease - @46, Hypertension, Diabetes - father, Other - father had "skin CA in eye" - Social History Alcohol Use: None Hx Substance Use: No Substance Use Type: Reports: None Hx Tobacco Use: No Smoking Status (MU): Never Smoked Tobacco Have You Smoked in the Last Year: No Review of Systems Negative: Fever Negative: Chest Pain Negative: Shortness Of Breath Positive: Abdominal Pain, Nausea. Negative: Vomiting, Diarrhea Positive: frequency, flank pain All Other Systems Reviewed And Are Negative: Yes Physical Exam Triage Information Reviewed: Yes Vital Signs On Initial Exam: Initial Vitals Temp Pulse Resp BP Pulse Ox 97.7 F 90 20 141/78 100 03/22/18 21:35 03/22/18 21:35 03/22/18 21:35 03/22/18 21:35 03/22/18 21:35 Vital Signs Reviewed: Yes Appearance: Positive: Well-Appearing Skin: Positive: Warm, Dry Head/Face: Positive: Normal Head/Face Inspection Eyes: Positive: Normal, Conjunctiva Clear ENT: Positive: Pharynx normal Respiratory/Lung Sounds: Positive: Clear to Auscultation, Breath Sounds Present Cardiovascular: Positive: Normal, RRR Abdomen Description: Positive: Nontender, Soft, CVA Tenderness (L). Negative: CVA Tenderness (R) Bowel Sounds: Positive: Present Musculoskeletal: Positive: Normal Neurological: Positive: Normal Psychiatric: Positive: Normal Diagnostics - Vital Signs Vital Signs Temp Pulse Resp BP Pulse Ox 03/22/18 21:35 97.7 F 90 20 141/78 100 - Laboratory Result Diagrams: 03/22/18 23:52 03/22/18 23:52 Lab Statement: Any lab studies that have been ordered have been reviewed, and results considered in the medical decision making process. - Ultrasound No standard instances Ultrasound Interpretation Completed By: Radiologist Summary of Ultrasound Findings: IMPRESSION: Nonobstructing left renal stones. GIGU Course/Dx - Course Course Of Treatment: 38-year-old female presents with flank pain urgency and frequency for the past couple days. She denies any abnormal vaginal discharge. She states she has a history of GI upset. She also admits to nausea for a long time. No fevers. No cough. No chest pain or shortness of breath. She states her cat did land on her flank the other day. denies any rash. States has had UTIs before. No blood in her urine. No diarrhea no constipation. on exam has tenderness left flank. nontender abd. wbc normal. crp normal. u/s renal nonobstructing stones. urine no infection. discussed try tyenlol or ibuprofen for pain. told to follow up with primary. patient understand and agrees with plan. - Diagnoses Differential Diagnoses - Female: Pyelonephritis, Urinary Tract Infection, Ureteral Calculi Provider Diagnoses: Flank pain Discharge - Sign-Out/Discharge Documenting (check all that apply): Patient Departure - Discharge Plan Condition: Good Disposition: HOME Patient Education Materials: Flank Pain (ED) Referrals: Sharita Braun MD [Primary Care Provider] - Additional Instructions: take Tylenol or ibuprofen every 6 hours as needed for pain ice/heat Follow up with primary Return to ED if develop any new or worsening symptoms - Billing Disposition and Condition Condition: GOOD Disposition: Home
[2018-03-23 00:03] LABS: ABS Basophils 0.2 10^3/ul (0-0.2); ABS Eosinophils 0.4 10^3/ul (0-0.6); ABS Lymphocytes 2.1 10^3/ul (1.0-4.8); ABS Monocytes 0.6 10^3/ul (0-0.8); ABS Nucleated RBC 0 10^3/ul; Eosinophil % 5.4 %; Hematocrit 40 % (35-47); Hemoglobin 13.9 g/dl (12.0-16.0); Lymphocyte % 28.5 %; Mean Corpuscular HGB Conc 35 g/dl (31-36); Mean Corpuscular Hemoglobin 31 pg (27-31); Mean Corpuscular Volume 87 fL (80-97); Mean Platelet Volume 8.6 fL (7.4-10.4); Nucleated Red Blood Cells % 0; Platelet Count 230 10^3/ul (150-450); Red Blood Count 4.52 10^6/ul (4.00-5.40); Red Cell Distribution Width 13 % (10.5-15); White Blood Count 7.3 10^3/ul (3.5-10.8)
[2018-03-23 00:19] LABS: ALT 16 U/L (7-52); AST 15 U/L (13-39); Albumin 4.2 g/dL (3.2-5.2); Albumin/Globulin Ratio 2.2 (1-3); Alkaline Phosphatase 47 U/L (34-104); Anion Gap 7 mmol/L (2-11); BUN/Creatinine Ratio 16.5 (8-20); Blood Urea Nitrogen 14 mg/dL (6-24); C Reactive Protein < 1.00 mg/L (<8.01); CO2 Carbon Dioxide 20 mmol/L (22-32); Calcium 9.3 mg/dL (8.6-10.3); Chloride 111 mmol/L (101-111); EGFR Non-African American 74.1 (>60); Globulin 1.9 g/dL (2-4); Glucose 115 mg/dL (70-100); Potassium 3.8 mmol/L (3.5-5.0); Sodium 138 mmol/L (135-145); Total Protein 6.1 g/dL (6.4-8.9)
[2018-03-23 00:26] LABS: HCG Pregnancy < 0.60 mIU/mL
[2018-03-23 00:41] LABS: Urine Appearance Clear; Urine Bilirubin Negative (Negative); Urine Blood Negative (Negative); Urine Color Yellow; Urine Glucose Negative (Negative); Urine Ketones Negative (Negative); Urine Nitrite Negative (Negative); Urine Protein Negative (Negative); Urine Specific Gravity 1.016 (1.010-1.030); Urine Urobilinogen Negative (Negative)
[2018-03-23 01:13] VITALS: BP 135/88
== END 2018-03-23 01:11 | disposition home or self-care (01) ==
LOC: ED 21:30
DX: M54.5 Low back pain (principal); Z87.440 Personal history of urinary (tract) infections; E03.9 Hypothyroidism, unspecified; N20.0 Calculus of kidney
CPT/HCPCS: 36415; 76775; 80053; 81003; 84702; 85025; 86140; 99282

== ENCOUNTER 2018-03-28 22:25 | Emergency (ER) | payer BC ==
[2018-03-28] MEDS ORDERED: diPHENhydraMINE PO* 50 MG PO ONE (22:56)
[2018-03-28] MEDS ORDERED: predniSONE TAB* 20 MG PO ONE (22:59)
--- NOTE | 2018-03-28 23:03 | ED ---
Allergic Reaction/Systemic - HPI Summary HPI Summary: This patient is a 38 year old female presenting to [facility] accompanied by with a chief complaint of allergic reaction since 1999 today. Patient and were eating dinner and patient drank out of the same bottle as her . She later noticed that her was eating seafood chowder. Patient is allergic to shellfish. The pain is rated 0/10 in severity. Symptoms aggravated by nothing. Symptoms alleviated by nothing. Patient states she started getting nauseous and her lips started swelling up. In the ED, patient states that she is no longer nauseous. Patient denies itch. - History of Current Complaint Chief Complaint: EDAllergicReaction Time Seen by Provider: 03/28/18 22:52 Hx Obtained From: Patient Hx Last Menstrual Period: 4 weeks Onset/Duration: Started hours ago, Resolved Timing: Constant Severity Initially: Mild Severity Currently: None Pain Intensity: 0 Pain Scale Used: 0-10 Numeric Character: Swelling Aggravating Factor(s): Nothing Alleviating Factor(s): Nothing Associated Signs And Symptoms: Positive: Negative - itch, Nausea - Allergies/Home Medications Allergies/Adverse Reactions: Allergies Allergy/AdvReac Type Severity Reaction Status Date / Time levetiracetam [From Keppra] Allergy Altered Verified 03/16/18 12:12 Mental Status diphenhydramine AdvReac Itching Verified 03/16/18 12:12 [From Benadryl] erythromycin base AdvReac Nausea And Verified 03/16/18 12:12 Vomiting latex AdvReac Itching Verified 03/16/18 12:12 morphine AdvReac Itching Verified 03/16/18 12:12 Penicillins AdvReac Hives Verified 03/16/18 12:12 tramadol AdvReac Nausea Verified 03/16/18 12:12 sunflower seeds AdvReac Unknown cold sores Uncoded 03/16/18 12:12 PMH/Surg Hx/FS Hx/Imm Hx Previously Healthy: No Endocrine/Hematology History: Reports: Hx Thyroid Disease - HYPOTHYROID Denies: Hx Diabetes Cardiovascular History: Reports: Other Cardiovascular Problems/Disorders - CARDIAC ARRYTHMIA SEEN A FEW YEARS AGO Denies: Hx Hypertension, Hx Pacemaker/ICD Respiratory History: Denies: Hx Asthma, Hx Chronic Obstructive Pulmonary Disease (COPD) GI History: Denies: Hx Ulcer History: Reports: Hx Kidney Infection Denies: Hx Renal Disease Musculoskeletal History: Denies: Hx Rheumatoid Arthritis, Hx Osteoporosis, Hx Scoliosis Sensory History: Denies: Hx Hearing Aid Neurological History: Reports: Hx Migraine Denies: Hx Headaches, Other Neuro Impairments/Disorders Psychiatric History: Reports: Hx Anxiety, Hx Depression Denies: Hx Panic Disorder - Cancer History Hx Chemotherapy: No Hx Radiation Therapy: No - Surgical History Surgery Procedure, Year, and Place: R humerus; L knee tendon, WISDOM TEETH - Immunization History Date of Tetanus Vaccine: utd Date of Influenza Vaccine: none Infectious Disease History: No Infectious Disease History: Denies: Hx Clostridium Difficile, Hx Hepatitis, Hx Human Immunodeficiency Virus (HIV), Hx of Known/Suspected MRSA, Hx Shingles, Hx Tuberculosis, Hx Known/ Suspected VRE, Hx Known/Suspected VRSA, History Other Infectious Disease, Traveled Outside the [place] in Last 30 Days - Family History Known Family History: Positive: Cardiac Disease - @46, Hypertension, Diabetes - father, Other - father had "skin CA in eye" - Social History Alcohol Use: None Hx Substance Use: No Substance Use Type: Reports: None Hx Tobacco Use: No Smoking Status (MU): Never Smoked Tobacco Have You Smoked in the Last Year: No Review of Systems Negative: Fever ENT: Other - throat swelling Positive: Nausea Skin: Negative - itching All Other Systems Reviewed And Are Negative: Yes Physical Exam - Summary Physical Exam Summary: VITAL SIGNS: Reviewed. GENERAL: Patient is a well-developed and nourished female who is lying comfortable in the stretcher. Patient is not in any acute respiratory distress. HEAD AND FACE: No signs of trauma. No ecchymosis, hematomas or skull depressions. No sinus tenderness. EYES: PERRLA, EOMI x 2, No injected conjunctiva, no nystagmus. EARS: Hearing grossly intact. Ear canals and tympanic membranes are within normal limits. MOUTH: Oropharynx within normal limits. NECK: Supple, trachea is midline, no adenopathy, no JVD, no carotid bruit, no c- spine tenderness, neck with full ROM. CHEST: Symmetric, no tenderness at palpation LUNGS: Clear to auscultation bilaterally. No wheezing or crackles. CVS: Regular rate and rhythm, S1 and S2 present, no murmurs or gallops appreciated. ABDOMEN: Soft, non-tender. No signs of distention. No rebound no guarding, and no masses palpated. Bowel sounds are normal. EXTREMITIES: FROM in all major joints, no edema, no cyanosis or clubbing. NEURO: Alert and oriented x 3. No acute neurological deficits. Speech is normal and follows commands. SKIN: Dry and warm Triage Information Reviewed: Yes Vital Signs On Initial Exam: Initial Vitals Temp Pulse Resp BP Pulse Ox 98.2 F 98 16 137/65 100 03/28/18 22:27 03/28/18 22:27 03/28/18 22:27 03/28/18 22:27 03/28/18 22:27 Vital Signs Reviewed: Yes Diagnostics - Vital Signs Vital Signs Temp Pulse Resp BP Pulse Ox 03/28/18 22:43 92 19 138/93 99 03/28/18 22:27 98.2 F 98 16 137/65 100 - Laboratory Lab Statement: Any lab studies that have been ordered have been reviewed, and results considered in the medical decision making process. Allergic Reaction Course/Dx - Course Course Of Treatment: This patient is a 38 year old female presenting to [facility] accompanied by with a chief complaint of allergic reaction since 1999 today. Patient and were eating dinner and patient drank out of the same bottle as her . She later noticed that her was eating seafood chowder. Patient is allergic to shellfish. Patient states she started getting nauseous and her lips started swelling up. In the ED, patient states that she is no longer nauseous. Patient denies itch. In the ED course the patient was given Benadryl, deltasone. The pt is hemodynamically stable, alert and oriented x3. Patient will be discharged with a dx of allergic reaction. Patient is advised to follow up with PCP in 2 days. The patient is agreeable with this plan. - Diagnoses Provider Diagnoses: Allergic reaction Discharge - Sign-Out/Discharge Documenting (check all that apply): Patient Departure - Discharge Plan Condition: Stable Disposition: HOME Prescriptions: predniSONE TAB* [Deltasone TAB*] 50 mg PO DAILY #3 tab Patient Education Materials: Food Allergy (ED) Referrals: Sharita Braun MD [Primary Care Provider] - 2 Days Additional Instructions: Return to the ED for any new or worsening symptoms. - Attestation Statements Document Initiated by Scribe: Yes Documenting Scribe: Tawnya Ruiz Provider For Whom Scribe is Documenting (Include Credential): Radha Elfar, MD Scribe Attestation: Tawnya Zimmerman, scribed for Radha Dougherty MD on 03/28/18 at 2327. Status of Scribe Document: Ready
[2018-03-28 23:45] VITALS: BP 121/76
== END 2018-03-28 23:43 | disposition home or self-care (01) ==
LOC: ED 22:25
DX: T78.1XXA Other adverse food reactions, not elsewhere classified, initial encounter (principal); R11.0 Nausea; R22.0 Localized swelling, mass and lump, head; X58.XXXA Exposure to other specified factors, initial encounter; Z88.5 Allergy status to narcotic agent; Z88.0 Allergy status to penicillin; Z88.8 Allergy status to other drugs, medicaments and biological substances; Z88.1 Allergy status to other antibiotic agents; Z91.040 Latex allergy status
CPT/HCPCS: 99282; A9270-GY; J7512

== ENCOUNTER → 2018-04-29 05:49 | Day surgery (SDC) | payer BC ==
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
[~2018-04-29 05:49] MED LIST changes: +Buffered Lidocaine 1% SYRIN* 1 ML/SYRINGE INTRADERM ONE; +Bupivacaine 0.5%* 50 ML VIAL ONE; +Clindamycin 900 MG/D5W BAG(*) 900 MG/50 ML BAG IVPB ONE; -Clindamycin CAP* 150 MG PO ONE; +Dexamethasone IV* 4 MG/ML 1 ML (4 MG) ONE; +Famotidine IV* 10 MG/ML 2 ML (20 mg) IV ONE; +Famotidine IV* 10 MG/ML 2 ML (20 mg) ONE; -HYDROcodone/ACETAMIN 5-325 MG* 1 TAB PO ONE; +KETAMINE HCL* 50 MG/ML 10 ML VIAL ONE; -Ketorolac INJ* 30 MG/ML 1 ML VIAL IM ONE; +Ketorolac INJ* 30 MG/ML 1 ML VIAL ONE; +Lactated Ringers 1000 ML Bag* 1,000 ML IV SCH; +Lidocaine 1% INJ* 10 MG/ML 30 ML SDV ONE; +Lidocaine 2% PF * 5 ML VIAL ONE; +Midazolam* 1 MG/ML 10 ML VIAL (10 MG) ONE; +Naloxone* 0.4 MG/ML 1 ML VIAL IV PRN; +Ondansetron INJ* 2 MG/ML VIAL IV PRN; +Ondansetron INJ* 2 MG/ML VIAL ONE; +Propofol* 10 MG/ML 20 ML BTL ONE; +fentaNYL* 50 MCG/ML 2 ML VIAL (100 MCG VIAL) IV PRN; +fentaNYL* 50 MCG/ML 2 ML VIAL (100 MCG VIAL) ONE; +oxyCODONE/Acetamin 5/325 MG* TAB PO PRN
[2018-04-29 10:28] VITALS: BP 122/77
--- NOTE | 2018-04-29 11:59 | OP ---
DATE OF OPERATION: 04/29/18 - [facility] DATE OF : 76. SURGEON: Felicia Ruiz MD. SMOKING PIPE DRILLER AND THREADER: Anh Tovar MD. ANESTHESIOLOGIST: Aquilino Ortega MD. ANESTHESIA: General. PRE-OP DIAGNOSIS: Left breast mass. POST-OP DIAGNOSIS: Left breast mass. OPERATIVE PROCEDURE: Left breast lumpectomy. INDICATION FOR PROCEDURE: Ms. Dago Ahn is a very pleasant 38-year-old female with a history of a palpable left breast mass that was biopsied as PASH. Despite this benign finding, the mass seemed to be causing her to significant discomfort therefore, she elected to have this removed. Informed consent was obtained for a left breast lumpectomy and she understood the risks, benefits, and alternatives of the procedure and she wished to proceed. DESCRIPTION OF PROCEDURE: The patient was brought back to the operating room and placed on the operating table in a supine position. Venodyne boots were placed on the bilateral lower extremities for DVT prophylaxis. Antibiotics were administered prior to incision. MAC anesthesia was administered. Prior to beginning the procedure, a time-out was performed verifying the patient's name, MRN and procedure to be performed. Next, the patient's left breast was prepped and draped in normal sterile fashion. An ultrasound was in the fatuma to help identify the mass with the biopsy clip, given that palpating the mass was somewhat difficult. It was noted to be about 2 o'clock about 6 cm from the nipple. Local anesthesia was infiltrated into the breast over the area where the palpable mass was located and an intraoperative ultrasound also confirmed where the mass was as well as where the clip was. A curvilinear incision was made over this area. Then, the incision was carried down through the subcutaneous tissue down through the subcutaneous fats and a cone of tissue was taken and removed from the breast and marked in the normal fashion with a short suture being at the superior edge, middle being at the medial edge, and long being at the lateral edge, and a second specimen was also taken superior and lateral to the original one and both of them were sent to mammogram to confirm that the clip was contained within the specimen. The clip was contained within the additional specimen that had been removed. After confirming this with radiology, careful hemostasis was obtained in the breast cavity. Lidocaine was then infused into the space in the subdermal layer was closed using interrupted 3-0 Vicryl sutures and the skin was closed using a running 4-0 Monocryl suture. Sterile dressing was placed and the patient was woken up and taken to the PACU in stable condition. At the end of the case, all counts were correct and I was present during the entirety of the case. [id number]/CPS #: [id number] MTDD
== END | disposition home or self-care (01) ==
LOC: OR 05:49
PROVIDERS: ATTEND Surgery
DX: N63.0 Unspecified lump in unspecified breast (principal); N60.12 Diffuse cystic mastopathy of left breast; N64.4 Mastodynia; E03.9 Hypothyroidism, unspecified; F41.8 Other specified anxiety disorders
CPT/HCPCS: 77061; 81025; 88307; G0279; J1100; J1885; J2250; J2405; J2704; J3010

== ENCOUNTER 2018-05-27 11:01 | Emergency (ER) | payer BC ==
--- OUTSIDE RECORDS SUMMARY | 2018-05-27 12:20 | XMS REPORT | Continuity of Care Document ---
:1980 External Reference #:[id number] Author Name Shawanda Quinonez Care Team Providers Name Role Phone Sharita Braun MD Primary Care Physician Unavailable Payers Type Date Identification Numbers Payment Provider Subscriber Policy Number: [id number] [employer] Nikki Tillmano PayID: [id number] [address] [address] [place] [address] Effective: 2012 Policy Number: [id number] [employer] Floyd Tillmano Expires: 2017 PayID: [id number] [address] [address] [place] [address] Advance Directives Description No Information Available Problems [...] Use Denies Drug Use Smoking Status Reviewed: 05/09/18 Patient has never smoked Exercise Type/Frequency Exercises [...] Available Vital Signs Date Vital Result Comment 05/09/2018 9:13am Heart Rate 84 /min BP Systolic Sitting 122 mmHg BP Diastolic Sitting 82 mmHg Respiratory Rate 16 /min Body Temperature 97.5 F 04/13/2018 1:06pm Height 65 inches 5'5" Weight 118.00 lb Heart Rate 80 /min BP Systolic 118 mmHg BP Diastolic 72 mmHg Respiratory Rate 16 /min Body Temperature 98.0 F BMI (Body Mass Index) 19.6 kg/m2 03/21/2018 2:35pm Heart Rate 72 /min Respiratory [...] Test Result H/L Range Note Laboratory test 04/29/2018 [facility] Surgical SEE RESULT [address] [place] [address] [phone] Laboratory test 03/16/2018 [facility] Surgical SEE RESULT 2 , [address] [place] [address] [phone] Laboratory test 07/28/2010 [facility] Topomax 3.3 g/mL 2.0- 20.0 [address] (Topiramate) [place] [address] [phone] 1 SEE RESULT BELOW Name: NIKKI MIRZA : [address]: Felicia Ruiz MD Acct: [id number] Unit: [id number] AGE: 38 Location: OR Re04/29/18 SEX: F Status: REG [facility] SPEC: [id number] NITHYA: 04/29/18- [facility] DR: Felicia Ruiz MD REQ: [id number] RECD: 04/29/18 STATUS: SOUT _ ORDERED: LEVEL 5/2 FINAL DIAGNOSIS 1. Breast, left, excision: -- Nonproliferative fibrocystic change with stromal hyperplasia with patchy pseudo-angiomatous stromal hyperplasia, sclerosing adenosis and fibroadenomatous hyperplasia. -- No evidence of neoplasia is identified. 2. Breast, left, additional tissue superior and adjacent to first specimen, excision: -- Nonproliferative fibrocystic change with nodular stromal fibrosis and pseudo-angiomatous stromal hyperplasia with sclerosing adenosis. -- Prior biopsy site related changes. -- No evidence of neoplasia identified. PRE-OPERATIVE DIAGNOSIS While Left breast cancer, 1. Usual markings GROSS DESCRIPTION 1. The specimen is received fresh labeled, Left Breast Mass, and consists of a 5.2 x 4.8 x 1.8 cm yellow-pink ovoid portion of fibrofatty soft tissue with three attached sutures which are designated as follows: long-lateral, short-superior and medium-medial. The cut surface consists predominantly of yellow lobulated adipose tissue with moderate interspersed mcgowan-white to pink dense focally nodular fibrous tissue (measuring up to 4.0 cm). A discrete lesion is not identified. The specimen is inked as follows: superior anterior-blue, inferior anterior-green and deep-black, serially sectioned from lateral to medial and entirely submitted in cassettes A through P. 2. The specimen is received fresh labeled, Additional Tissue Superior and Adjacent to First Specimen, and consists of a 4.5 x 3.4 x 1.2 cm yellow-pink ovoid unoriented portion of fibrofatty soft tissue. A cut surface consists predominantly of mcgowan-white dense focally nodular fibrous tissue (measuring up to 2.5 cm) with moderate interspersed yellow lobulated CONTINUED ON NEXT PAGE DEPARTMENT OF PATHOLOGY, [address] [place] [address] Ulices Soria M.D. Director WHITNEY # [id number] RUN DATE: 05/02/18 [facility] LAB LIVE PAGE 2 Patient: NIKKI MIRZA [id number] (Continued) GROSS DESCRIPTION (Continued) adipose tissue. There is a 0.3 x 0.1 cm silver metallic cylindrical clip within the fibrous tissue, 0.2 cm from the nearest margin. A discrete lesion is not identified. The specimen is inked, serially sectioned and entirely submitted in cassettes A through H to include sections associated with clip in cassettes E and F. Signed by and Reported on: Ulices Soria MD [id number] END OF REPORT DEPARTMENT OF PATHOLOGY, [address] [place] [address] Ulices Soria M.D. Director ERASMO # [id number] 2 [id number] SEE RESULT BELOW Name: NIKKI MIRZA : [address]: Felicia Ruiz MD Acct: [id number] Unit: [id number] AGE: 38 Location: [facility] Re03/16/18 SEX: F Status: REG REF SPEC: [id number] NITHYA: 03/16/18-[address]: Mingo Sheth MD REQ: [id number] RECD: 03/16/18 STATUS: JACKSON SERRANO DR: Felicia Ruiz MD _ ORDERED: LEVEL 4 COMMENTS: [id number] FINAL DIAGNOSIS Breast, left, core biopsies: -- [...] 1015 END OF REPORT DEPARTMENT OF PATHOLOGY, [address] [place] [address] Ulices Soria M.D. Director [facility] # [id number] 4 Test Performed by: [facility] Dpt of Lab Med and Pathology [address] [place] [address] Linoleum Printer: Giles Quiros III, M.D. Procedures Date Code Description Status 04/29/2018 76751 Mastectomy Partial Completed 04/29/2018 74572 Mastectomy Partial Completed 04/29/2018 [id number] Mammogram Completed 02/23/2018 [id number] Mammogram Completed 07/14/2012 32154 Rad Exam; Ankle Comp Completed 06/22/2012 90203 Rad Exam; Ankle Comp Completed 06/08/2012 15805 Rad Exam; Ankle Comp Completed 06/08/2012 06648 Short Leg Cast Completed 06/02/2012 53638 CLSD TX Distal Fib FX (Lateral Malleolus) w/o Completed manipulation 06/02/2012 87650 Closed TX Prox/Shaft Fibula W/O Manip Completed Encounters Type Date Location Provider Dx Diagnosis Office Visit 03/21/2018 Kenan Ruiz MD D48.62 Neoplasm of 2:30p [facility] uncertain behavior of left breast Office Visit 03/10/2018 Kenan Ruiz MD D48.62 Neoplasm of 8:30a [facility] uncertain behavior of left breast Office Visit 07/02/2015 [facility] S. Z87.820 Personal history 9:00a Services Of [...] Ledezma, 844.1 Sprains [facility] Knee Medial [facility] Collateral Ligament Office Visit 02/17/2012 9:30a Orthopedic Luis Miranda, 836.0 Dislocation Knee [facility] Tear Of Medial [facility]. Cartilage Or Meniscus Moses Plan of Treatment Future Appointment(s):08/08/2018 9:00 am - Felicia Ruiz MD at [facility]05/09/2018 - Felicia Ruiz, MDD48.62 Neoplasm of uncertain behavior of left breastFollow up:Please follow up in 3 months for a repeat clinical breast exam. If you have any questions or any changes in your physical exam please come back sooner.
--- NOTE | 2018-05-27 12:29 | UC ---
Skin Complaint HPI - HPI Summary HPI Summary: Patient was bit by her pet rat yesterday in the right index finger. the finger is now swollen and a little numb. denies fever. she did clean it out and apply neosporin yesterday - History of Current Complaint Time Seen by Provider: 05/27/18 12:19 Stated Complaint: ANIMAL BITE Hx Obtained From: Patient Hx Last Menstrual Period: 4 weeks - Allergy/Home Medications Allergies/Adverse Reactions: Allergies Allergy/AdvReac Type Severity Reaction Status Date / Time shellfish derived Allergy Severe throat Verified 05/27/18 12:37 swollen, itching levetiracetam [From [facility]] Allergy Unknown Altered Verified 05/27/18 12:37 Mental Status erythromycin base AdvReac Severe Nausea And Verified 05/27/18 12:37 Vomiting morphine AdvReac Severe Itching Verified 05/27/18 12:37 Penicillins AdvReac Severe Hives Verified 05/27/18 12:37 tramadol AdvReac Severe Nausea Verified 05/27/18 12:37 latex AdvReac Intermediate Itching Verified 05/27/18 12:37 sunflower seeds AdvReac Severe cold sores Uncoded 05/27/18 12:37 Home Medications: Home Medications Magnesium Oxide [Magnesium] 500 mg PO DAILY 05/27/18 [History Confirmed 05/27/18 ] PMH/Surg Hx/FS Hx/Imm Hx - Surgical History Surgical History: Yes Surgery Procedure, Year, and Place: R humerus; L knee tendon, WISDOM TEETH - Family History Known Family History: Positive: Cardiac Disease - @46, Hypertension, Diabetes - father, Other - father had "skin CA in eye" - Social History Alcohol Use: None Substance Use Type: None Smoking Status (MU): Never Smoked Tobacco Have You Smoked in the Last Year: No - Immunization History Most Recent Tetanus Shot: 9 years ago Review of Systems All Other Systems Reviewed And Are Negative: Yes Constitutional: Positive: Negative Skin: Positive: Other - bit wound Eyes: Positive: Negative ENT: Positive: Negative Respiratory: Positive: Negative Cardiovascular: Positive: Negative Gastrointestinal: Positive: Negative Genitourinary: Positive: Negative Motor: Positive: Negative Neurovascular: Positive: Negative Musculoskeletal: Positive: Arthralgia, Decreased ROM, Edema Neurological: Positive: Negative Psychological: Positive: Negative Is Patient Immunocompromised?: No Physical Exam Triage Information Reviewed: Yes Appearance: Well-Appearing, Well-Nourished, Pain Distress Vital Signs Reviewed: Yes Eye Exam: Normal ENT Exam: Normal Dental Exam: Normal Neck exam: Normal Respiratory Exam: Normal Respiratory: Positive: Chest non-tender, Lungs clear, Normal breath sounds Cardiovascular Exam: Normal Cardiovascular: Positive: RRR, No Murmur, Pulses Normal Abdominal Exam: Normal Abdomen Description: Positive: Nontender, No Organomegaly, Soft Musculoskeletal Exam: Normal Musculoskeletal: Positive: Strength Limited @, ROM Limited @, Edema @ - right DIP joint Neurological Exam: Normal Psychological Exam: Normal Skin: Positive: Other - puncture wound Course/Dx - Course Course Of Treatment: hx obtained, exam performed ,meds reviewed, treated for infection, recommend follow up in ER if not improving in the next 48 hours - Differential Diagnoses - Skin Complaint Differential Diagnoses: Abscess, Cellulitis, Contact Dermatitis, MRSA - Diagnoses Provider Diagnosis: Rat bite Discharge - Sign-Out/Discharge Documenting (check all that apply): Patient Departure All imaging exams completed and their final reports reviewed: No Studies - Discharge Plan Condition: Stable Disposition: HOME Prescriptions: DOXYcycline CAP(*) [DOXYcycline 100MG CAP(*)] 100 mg PO BID #28 cap Patient Education Materials: Animal Bite (ED) Referrals: Sharita Braun MD [Primary Care Provider] - Additional Instructions: Watch for the following signs: Fever Headaches Vomiting Pain in the back and joints Rash on the hands and feet, usually accompanied by one or more swollen joints. This rash usually appears two to four days after the fever. Symptoms of rat-bite fever usually appear three to 10 days after the exposure or a bite but may occur up to three weeks later. In most cases, the actual bite or scratch wound is healed by the time the fever starts. take the medication, if you exhibit any of the above symptoms report to ER for follow up daily warm water soaks for hand will help with the swelling - Billing Disposition and Condition Condition: STABLE Disposition: Home
[2018-05-27 12:37] VITALS: BP 116/88
[2018-05-27] MEDS ORDERED: Tetan/Diph/Pertus SYR(Tdap)* 0.5 ML SYR(BOOSTRIX) use SYR IM ONE (12:54)
== END 2018-05-27 13:06 | disposition home or self-care (01) ==
LOC: UCEAST 11:01
DX: S61.250A Open bite of right index finger without damage to nail, initial encounter (principal); W53.11XA Bitten by rat, initial encounter; Y92.9 Unspecified place or not applicable; Z88.6 Allergy status to analgesic agent; Z88.1 Allergy status to other antibiotic agents; Z91.040 Latex allergy status; Z88.0 Allergy status to penicillin; Z91.013 Allergy to seafood; Z88.8 Allergy status to other drugs, medicaments and biological substances; Z91.018 Allergy to other foods
CPT/HCPCS: 90471; 90715; 99212; G0463

== ENCOUNTER 2018-06-24 15:11 | Emergency (ER) | payer BC ==
[2018-06-24 16:31] LABS: ABS Basophils 0.1 10^3/ul (0-0.2); ABS Eosinophils 0.2 10^3/ul (0-0.6); ABS Lymphocytes 1.6 10^3/ul (1.0-4.8); ABS Monocytes 0.5 10^3/ul (0-0.8); ABS Neutrophils 3.4 10^3/ul (1.5-7.7); ABS Nucleated RBC 0 10^3/ul; Eosinophil % 2.7 %; Hematocrit 40 % (33-41); Hemoglobin 13.6 g/dL (12.0-16.0); Lymphocyte % 27.9 %; Mean Corpuscular HGB Conc 34 g/dL (31-36); Mean Corpuscular Hemoglobin 30 pg (27-31); Mean Corpuscular Volume 87 fL (80-97); Nucleated Red Blood Cells % 0.1; Platelet Count 244 10^3/uL (150-450); Red Blood Count 4.62 10^6 /uL (3.70-4.87); Red Cell Distribution Width 14 % (10.5-15); White Blood Count 5.8 10^3/uL (3.5-10.8)
[2018-06-24 16:46] LABS: Albumin 4.2 g/dL (3.2-5.2); Albumin/Globulin Ratio 2.3 (1-3); BUN/Creatinine Ratio 9.8 (8-20); Calcium 9.1 mg/dL (8.6-10.3); EGFR African American 93.4 (>60); EGFR Non-African American 77.2 (>60); Globulin 1.8 g/dL (2-4); Potassium 3.8 mmol/L (3.5-5.0); Total Bilirubin 0.4 mg/dL (0.2-1.0)
[2018-06-24] MEDS ORDERED: Iohexol 350* (CONTRAST) 500 ML MDV IV ONE (17:19)
[2018-06-24 18:35] VITALS: BP 123/85
--- NOTE | 2018-06-25 08:13 | ED ---
HPI Chest Pain - HPI Summary HPI Summary: Patient is a 2-year-old female presenting to the ED with left-sided chest wall pain. She states she has been moving heavy boxes frequently, however is concerned over her heart. She denies any palpitations or tachycardia. She has never had any issues with her heart. Denies CAD or hypertension. Symptoms are not worse with movement or better with rest. Not worse with exertion. Denies dyspnea or SOB. Pain was acute onset and began 6 days ago and was associated with SOB. She denies any of this currently, however continues to endorse pain. Denies abd pain, PARHAM. Denies radiation of pain. Worse with palpation over the area of concern. - History of Current Complaint Chief Complaint: EDChestWallPain Time Seen by Provider: 06/24/18 15:26 Hx Obtained From: Patient Hx Last Menstrual Period: 3 WEEKS AGO Onset/Duration: Started Hours Ago Timing: Constant Initial Severity: Mild Current Severity: Mild Pain Intensity: 2 Pain Scale Used: 0-10 Numeric Chest Pain Location: Mid Sternal - left Chest Pain Radiates: No Character: Dull/Aching Alleviating Factor(s): Nothing Associated Signs and Symptoms: Positive: Chest Pain - Risk Factors Pulmonary Embolism Risk Factors: Negative TAD Risk Factors: Negative - Allergy/Home Medications Allergies/Adverse Reactions: Allergies Allergy/AdvReac Type Severity Reaction Status Date / Time shellfish derived Allergy Severe throat Verified 06/20/18 21:52 swollen, itching levetiracetam [From [facility]] Allergy Unknown Altered Verified 06/20/18 21:52 Mental Status erythromycin base AdvReac Severe Nausea And Verified 06/20/18 21:52 Vomiting morphine AdvReac Severe Itching Verified 06/20/18 21:52 Penicillins AdvReac Severe Hives Verified 06/20/18 21:52 tramadol AdvReac Severe Nausea Verified 06/20/18 21:52 latex AdvReac Intermediate Itching Verified 06/20/18 21:52 sunflower seeds AdvReac Severe cold sores Uncoded 06/20/18 21:52 Home Medications: Home Medications Cider Vinegar [Apple Cider Vinegar] 500 mg PO DAILY 06/24/18 [History Confirmed 06/24/18] Ibuprofen TAB* [Advil TAB*] 200 mg PO Q6H PRN 06/24/18 [History Confirmed ] Magnesium Oxide [Magnesium] 125 mg PO TID WITH MEALS 06/24/18 [History Confirmed 06/24/18] Omeprazole (Nf) [Prilosec (NF)] 40 mg PO DAILY 06/24/18 [History Confirmed 06/24] Polyethylene Glycol 3350* [Miralax*] 17 gm PO DAILY 06/24/18 [History Confirmed 06/24/18] Topiramate TAB(*) [Topamax 25 MG tab] 50 mg PO BEDTIME 06/24/18 [History Confirmed 06/24/18] buPROPion SR TAB* [Wellbutrin SR TAB*] 200 mg PO BID 06/24/18 [History Confirmed 06/24/18] PMH/Surg Hx/FS Hx/Imm Hx Previously Healthy: Yes Endocrine/Hematology History: Reports: Hx Thyroid Disease - hypothyroid Denies: Hx Diabetes Cardiovascular History: Reports: Other Cardiovascular Problems/Disorders - CARDIAC ARRYTHMIA SEEN A FEW YEARS AGO Denies: Hx Hypertension, Hx Pacemaker/ICD Respiratory History: Denies: Hx Asthma, Hx Chronic Obstructive Pulmonary Disease (COPD) GI History: Reports: Hx Gastroesophageal Reflux Disease Denies: Hx Ulcer History: Reports: Hx Kidney Infection Denies: Hx Renal Disease Musculoskeletal History: Denies: Hx Rheumatoid Arthritis, Hx Osteoporosis, Hx Scoliosis Sensory History: Reports: Hx Contacts or Glasses - glasses Denies: Hx Hearing Aid Opthamlomology History: Reports: Hx Contacts or Glasses - glasses Neurological History: Reports: Hx Migraine Denies: Hx Headaches, Other Neuro Impairments/Disorders Psychiatric History: Reports: Hx Anxiety, Hx Depression Denies: Hx Panic Disorder - Cancer History Hx Chemotherapy: No Hx Radiation Therapy: No - Surgical History Surgery Procedure, Year, and Place: R humerus; L knee tendon, WISDOM TEETH Hx Anesthesia Reactions: No - Immunization History Date of Tetanus Vaccine: utd Date of Influenza Vaccine: none Hx Pertussis Vaccination: No Immunizations Up to Date: Yes Infectious Disease History: No Infectious Disease History: Denies: Hx Clostridium Difficile, Hx Hepatitis, Hx Human Immunodeficiency Virus (HIV), Hx of Known/Suspected MRSA, Hx Shingles, Hx Tuberculosis, Hx Known/ Suspected VRE, Hx Known/Suspected VRSA, History Other Infectious Disease, Traveled Outside the [place] in Last 30 Days - Family History Known Family History: Positive: Cardiac Disease - @46, Hypertension, Diabetes - father, Other - father had "skin CA in eye" - Social History Occupation: Employed Full-time Lives: With Family Alcohol Use: None Hx Substance Use: No Substance Use Type: Reports: None Hx Tobacco Use: No Smoking Status (MU): Never Smoked Tobacco Have You Smoked in the Last Year: No Review of Systems Constitutional: Negative Negative: Fever, Chills, Fatigue, Skin Diaphoresis Negative: Epistaxis, Dental Pain Positive: Chest Pain - left sided chest wall pain. Negative: Palpitations Genitourinary: Negative Positive: no symptoms reported, see HPI Negative: Arthralgia, Myalgia Negative: Rash Psychological: Normal All Other Systems Reviewed And Are Negative: Yes Physical Exam Triage Information Reviewed: Yes Vital Signs On Initial Exam: Initial Vitals Temp Pulse Resp BP Pulse Ox 97.6 F 91 18 147/94 99 06/24/18 15:16 06/24/18 15:16 06/24/18 15:16 06/24/18 15:16 06/24/18 15:16 Vital Signs Reviewed: Yes Appearance: Positive: Well-Appearing, Well-Nourished Skin: Positive: Warm, Skin Color Reflects Adequate Perfusion Head/Face: Positive: Normal Head/Face Inspection Eyes: Positive: EOMI, Conjunctiva Clear Neck: Positive: Supple, No Lymphadenopathy Respiratory/Lung Sounds: Positive: Clear to Auscultation, Breath Sounds Present Cardiovascular: Positive: RRR, Pulses are Symmetrical in both Upper and Lower Extremities Musculoskeletal: Positive: Normal, Strength/ROM Intact Neurological: Positive: Speech Normal Psychiatric: Positive: Normal, Affect/Mood Appropriate Diagnostics - Vital Signs Vital Signs Temp Pulse Resp BP Pulse Ox 06/24/18 18:34 98 F 85 18 123/85 99 06/24/18 18:25 83 18 123/85 99 06/24/18 18:01 18 06/24/18 17:26 79 19 124/78 99 06/24/18 17:00 83 22 99 06/24/18 16:00 85 19 99 06/24/18 15:38 90 98 06/24/18 15:16 97.6 F 91 18 147/94 99 - Laboratory Lab Results: Lab Results 06/24/18 06/24/18 06/24/18 Range/Units 16:22 16:22 16:22 WBC 5.8 (3.5-10.8) 10^3/uL RBC 4.62 (3.70-4.87) 10^6 /uL Hgb 13.6 (12.0-16.0) g/dL Hct 40 (33-41) % MCV 87 (80-97) fL MCH 30 (27-31) pg MCHC 34 (31-36) g/dL RDW 14 (10.5-15) % Plt Count 244 (150-450) 10^3/uL MPV 9.0 (7.4-10.4) fL Neut % (Auto) 59.2 % Lymph % (Auto) 27.9 % Ashe % (Auto) 9.0 % Eos % (Auto) 2.7 % Baso % (Auto) 1.2 % Absolute Neuts (auto) 3.4 (1.5-7.7) 10^3/ul Absolute Lymphs (auto) 1.6 (1.0-4.8) 10^3/ul Absolute Monos (auto) 0.5 (0-0.8) 10^3/ul Absolute Eos (auto) 0.2 (0-0.6) 10^3/ul Absolute Basos (auto) 0.1 (0-0.2) 10^3/ul Absolute Nucleated RBC 0 10^3/ul Nucleated RBC % 0.1 D-Dimer, Quantitative 520 H (Less Than 230) ng/mL Sodium 140 (135-145) mmol/L Potassium 3.8 (3.5-5.0) mmol/L Chloride 113 H (101-111) mmol/L Carbon Dioxide 22 (22-32) mmol/L Anion Gap 5 (2-11) mmol/L BUN 8 (6-24) mg/dL Creatinine 0.82 (0.51-0.95) mg/dL Est GFR ( Amer) 93.4 (>60) Est GFR (Non-Af Amer) 77.2 (>60) BUN/Creatinine Ratio 9.8 (8-20) Glucose 82 (70-100) mg/dL Lactic Acid (0.5-2.0) mmol/L Calcium 9.1 (8.6-10.3) mg/dL Magnesium 2.0 (1.9-2.7) mg/dL Total Bilirubin 0.40 (0.2-1.0) mg/dL AST 13 (13-39) U/L ALT 12 (7-52) U/L Alkaline Phosphatase 60 (34-104) U/L Troponin I 0.00 (<0.04) ng/mL Total Protein 6.0 L (6.4-8.9) g/dL Albumin 4.2 (3.2-5.2) g/dL Globulin 1.8 L (2-4) g/dL Albumin/Globulin Ratio 2.3 (1-3) 06/24/18 Range/Units 16:22 WBC (3.5-10.8) 10^3/uL RBC (3.70-4.87) 10^6 /uL Hgb (12.0-16.0) g/dL Hct (33-41) % MCV (80-97) fL MCH (27-31) pg MCHC (31-36) g/dL RDW (10.5-15) % Plt Count (150-450) 10^3/uL MPV (7.4-10.4) fL Neut % (Auto) % Lymph % (Auto) % Ashe % (Auto) % Eos % (Auto) % Baso % (Auto) % Absolute Neuts (auto) (1.5-7.7) 10^3/ul Absolute Lymphs (auto) (1.0-4.8) 10^3/ul Absolute Monos (auto) (0-0.8) 10^3/ul Absolute Eos (auto) (0-0.6) 10^3/ul Absolute Basos (auto) (0-0.2) 10^3/ul Absolute Nucleated RBC 10^3/ul Nucleated RBC % D-Dimer, Quantitative (Less Than 230) ng/mL Sodium (135-145) mmol/L Potassium (3.5-5.0) mmol/L Chloride (101-111) mmol/L Carbon Dioxide (22-32) mmol/L Anion Gap (2-11) mmol/L BUN (6-24) mg/dL Creatinine (0.51-0.95) mg/dL Est GFR ( Amer) (>60) Est GFR (Non-Af Amer) (>60) BUN/Creatinine Ratio (8-20) Glucose (70-100) mg/dL Lactic Acid 0.7 (0.5-2.0) mmol/L Calcium (8.6-10.3) mg/dL Magnesium (1.9-2.7) mg/dL Total Bilirubin (0.2-1.0) mg/dL AST (13-39) U/L ALT (7-52) U/L Alkaline Phosphatase (34-104) U/L Troponin I (<0.04) ng/mL Total Protein (6.4-8.9) g/dL Albumin (3.2-5.2) g/dL Globulin (2-4) g/dL Albumin/Globulin Ratio (1-3) Result Diagrams: 06/24/18 16:22 06/24/18 16:22 Lab Statement: Any lab studies that have been ordered have been reviewed, and results considered in the medical decision making process. Chest Pain Course/Dx - Course Course Of Treatment: During the course of treatment patient is evaluated for left sternal chest pain which is nonradiating. EKG obtained which shows normal sinus rhythm. Labs obtained including a troponin of 0.00. D-dimer obtained as this was acute onset associated with shortness of breath.this dimer was elevated so a CTA of the chest followed. This showed no evidence of pulmonary embolism. Physical exam is positive for pain to the L chest wall near the sternal notch. Worse with movement, better with rest. Lungs CTA, RRR. Denies other pain. She is dx with chest wall pain. - Chest Pain Differential Diagnosis/HQI/PQRI: Chest Wall, Other: - muscle strain - Diagnoses Provider Diagnoses: Chest wall pain Discharge - Sign-Out/Discharge Documenting (check all that apply): Patient Departure Patient Received Moderate/Deep Sedation with Procedure: No - Discharge Plan Condition: Stable Disposition: HOME Patient Education Materials: Chest Wall Pain (ED) Referrals: Sharita Braun MD [Primary Care Provider] - Additional Instructions: Ibuprofen 600mg three times daily for chest wall pain Gentle stretches Moist heat to the area may help Return to the ED for worsening symptoms - Billing Disposition and Condition Condition: STABLE Disposition: Home
== END 2018-06-24 18:34 | disposition home or self-care (01) ==
LOC: ED 15:11
DX: R07.89 Other chest pain (principal); K21.9 Gastro-esophageal reflux disease without esophagitis; G43.909 Migraine, unspecified, not intractable, without status migrainosus; F41.9 Anxiety disorder, unspecified; F32.9 Major depressive disorder, single episode, unspecified; Z88.8 Allergy status to other drugs, medicaments and biological substances; Z88.1 Allergy status to other antibiotic agents; Z91.040 Latex allergy status; Z88.5 Allergy status to narcotic agent; Z88.0 Allergy status to penicillin; Z91.013 Allergy to seafood
CPT/HCPCS: 36415; 71046; 71275; 80053; 83605; 83735; 84484; 85025; 85379; 93005; 99282; Q9967

== ENCOUNTER 2018-08-12 18:27 | Emergency (ER) | payer BC ==
[2018-08-12 18:34] VITALS: BP 116/75
--- NOTE | 2018-08-12 20:18 | UC ---
Back Pain HPI - HPI Summary HPI Summary: 38 yo female with increase frequency of urination associated with urgency and mild dysuria no f/c no with mild left flank pain no n/v/d no vag itch or d/c - History of Current Complaint Chief Complaint: UCGU Stated Complaint: URINARY COMPLAINT Time Seen by Provider: 08/12/18 18:33 Hx Obtained From: Patient Hx Last Menstrual Period: 3 WEEKS AGO Onset/Duration: Gradual Onset, Lasting Days Timing: Constant Severity Initially: Mild Severity Currently: Moderate Pain Intensity: 5 Pain Scale Used: 0-10 Numeric Character: Dull, Aching Aggravating Factor(s): Nothing Alleviating Factor(s): Nothing Associated Signs And Symptoms: Positive: Flank Pain. Negative: Swelling, Redness, Bruising, Fever, Weakness, Numbness, Tingling, Abdominal Pain, Bladder Incontinence, Bowel Incontinence, Weight Loss, Pain with Weight Bearing - Allergies/Home Medications Allergies/Adverse Reactions: Allergies Allergy/AdvReac Type Severity Reaction Status Date / Time shellfish derived Allergy Severe throat Verified 08/12/18 18:34 swollen, itching levetiracetam [From [facility]] Allergy Unknown Altered Verified 08/12/18 18:34 Mental Status erythromycin base AdvReac Severe Nausea And Verified 08/12/18 18:34 Vomiting morphine AdvReac Severe Itching Verified 08/12/18 18:34 Penicillins AdvReac Severe Hives Verified 08/12/18 18:34 tramadol AdvReac Severe Nausea Verified 08/12/18 18:34 latex AdvReac Intermediate Itching Verified 08/12/18 18:34 sunflower seeds AdvReac Severe cold sores Uncoded 08/12/18 18:34 Home Medications: Home Medications Escitalopram Oxalate [Lexapro 10 mg] 10 mg PO DAILY 08/12/18 [History Confirmed 08/12/18] PMH/Surg Hx/FS Hx/Imm Hx Previously Healthy: Yes Endocrine History: Hypothyroidism GI/ History: Gastroesophageal Reflux Psychological History: Depression - Surgical History Surgical History: Yes Surgery Procedure, Year, and Place: R humerus; L knee tendon, WISDOM TEETH - Family History Known Family History: Positive: Cardiac Disease - @46, Hypertension, Diabetes - father, Other - father had "skin CA in eye" - Social History Alcohol Use: None Substance Use Type: None Smoking Status (MU): Never Smoked Tobacco Have You Smoked in the Last Year: No - Immunization History Most Recent Tetanus Shot: 9 years ago Review of Systems All Other Systems Reviewed And Are Negative: Yes Constitutional: Positive: Fatigue Skin: Positive: Negative Eyes: Positive: Negative ENT: Positive: Negative Respiratory: Positive: Negative Cardiovascular: Positive: Negative Gastrointestinal: Positive: Negative Genitourinary: Positive: Dysuria, Frequency, Urgency Motor: Positive: Negative Neurovascular: Positive: Negative Musculoskeletal: Positive: Negative Neurological: Positive: Negative Psychological: Positive: Negative Physical Exam Triage Information Reviewed: Yes Appearance: Well-Appearing, No Pain Distress, Well-Nourished Vital Signs: Initial Vital Signs Temp 98.4 F 08/12/18 18:31 Pulse 92 08/12/18 18:31 Resp 18 08/12/18 18:31 BP 116/75 08/12/18 18: Pulse Ox 99 08/12/18 18:31 Vital Signs Reviewed: Yes Eyes: Positive: Conjunctiva Clear ENT: Positive: Hearing grossly normal. Negative: Pharyngeal erythema, Nasal congestion, Nasal drainage, Tonsillar swelling, Tonsillar exudate, Hoarse voice Neck: Positive: Supple, Nontender, No Lymphadenopathy Respiratory: Positive: Lungs clear, Normal breath sounds, No respiratory distress Cardiovascular: Positive: RRR, No Murmur Abdomen Description: Positive: Nontender, No Organomegaly, CVA Tenderness (L) - slight. Negative: CVA Tenderness (R) Bowel Sounds: Positive: Present Musculoskeletal: Positive: ROM Intact, No Edema Neurological: Positive: Alert Psychological Exam: Normal Skin Exam: Normal Back Pain Course/Dx - Course Course Of Treatment: UA +1 leuks - Differential Dx/Diagnosis Provider Diagnosis: UTI (urinary tract infection) Discharge - Sign-Out/Discharge Documenting (check all that apply): Patient Departure All imaging exams completed and their final reports reviewed: No Studies - Discharge Plan Condition: Stable Disposition: HOME Prescriptions: Cephalexin CAP* [Keflex CAP*] 500 mg PO BID #10 cap Patient Education Materials: Urinary Tract Infection in Women (ED) Referrals: Sharita Braun MD [Primary Care Provider] - 3 Days (if not better) Additional Instructions: recheck for new or worsening symptoms - Billing Disposition and Condition Condition: STABLE Disposition: Home
[2018-08-12] MEDS ORDERED: Cephalexin CAP* 500 MG PO ONE (20:25)
--- NOTE | 2018-08-14 15:47 | UC ---
- Progress Note Progress Note: call patient and assure all symptoms have resolved-urine culture has returned with out significant growth--if patient continues will illness get rechecked Course/Dx - Diagnoses Provider Diagnoses: UTI (urinary tract infection) Discharge - Sign-Out/Discharge Documenting (check all that apply): Post-Discharge Follow Up All imaging exams completed and their final reports reviewed: No Studies - Discharge Plan Condition: Stable Disposition: HOME Prescriptions: Cephalexin CAP* [Keflex CAP*] 500 mg PO BID #10 cap Patient Education Materials: Urinary Tract Infection in Women (ED) Referrals: Sharita Braun MD [Primary Care Provider] - 3 Days (if not better) Additional Instructions: recheck for new or worsening symptoms - Billing Disposition and Condition Condition: STABLE Disposition: Home
== END 2018-08-12 20:30 | disposition home or self-care (01) ==
LOC: UCEAST 18:27
DX: N39.0 Urinary tract infection, site not specified (principal); R53.83 Other fatigue; E03.9 Hypothyroidism, unspecified; K21.9 Gastro-esophageal reflux disease without esophagitis; F32.9 Major depressive disorder, single episode, unspecified; Z88.1 Allergy status to other antibiotic agents; Z91.040 Latex allergy status; Z88.5 Allergy status to narcotic agent; Z88.0 Allergy status to penicillin; Z91.013 Allergy to seafood; Z88.8 Allergy status to other drugs, medicaments and biological substances; Z91.018 Allergy to other foods; Z82.49 Family history of ischemic heart disease and other diseases of the circulatory system; Z83.3 Family history of diabetes mellitus; Z80.8 Family history of malignant neoplasm of other organs or systems
CPT/HCPCS: 81003; 87086; 99212; A9270-GY; G0463

== ENCOUNTER 2018-10-11 20:40 | Emergency (ER) | payer BC ==
[2018-10-11 21:28] VITALS: BP 137/91
--- NOTE | 2018-10-11 22:55 | UC ---
UC General HPI - HPI Summary HPI Summary: 38-year-old woman comes in with a chief complaint of a bleeding hemorrhoid. Patient reports she's had problems with hemorrhoids for a long time. She's also had issues with recurrent constipation and she has seen a moss gatherer Dr. Allred at [place]. Hemorrhoid is bothering her more last couple of days and then this evening she had quite a bit of bleeding from the hemorrhoid. Also feeling nauseous. No fevers or chills. - History of Current Complaint Chief Complaint: UCGI Stated Complaint: PERSONAL ISSUE Time Seen by Provider: 10/11/18 22:37 Hx Last Menstrual Period: [id number] Pain Intensity: 3 - Allergy/Home Medications Allergies/Adverse Reactions: Allergies Allergy/AdvReac Type Severity Reaction Status Date / Time shellfish derived Allergy Severe throat Verified 10/11/18 21:28 swollen, itching levetiracetam [From [facility]] Allergy Unknown Altered Verified 10/11/18 21:28 Mental Status erythromycin base AdvReac Severe Nausea And Verified 10/11/18 21:28 Vomiting morphine AdvReac Severe Itching Verified 10/11/18 21:28 Penicillins AdvReac Severe Hives Verified 10/11/18 21:28 tramadol AdvReac Severe Nausea Verified 10/11/18 21:28 latex AdvReac Intermediate Itching Verified 10/11/18 21:28 sunflower seeds AdvReac Severe cold sores Uncoded 10/11/18 21:28 PMH/Surg Hx/FS Hx/Imm Hx Previously Healthy: Yes - ibs, hemorrhoids Endocrine History: Hypothyroidism - Surgical History Surgical History: Yes Surgery Procedure, Year, and Place: R humerus; L knee tendon, WISDOM TEETH, lumpectomy - Family History Known Family History: Positive: Cardiac Disease - @46, Hypertension, Diabetes - father, Other - father had "skin CA in eye" - Social History Alcohol Use: None Substance Use Type: None Smoking Status (MU): Never Smoked Tobacco Have You Smoked in the Last Year: No - Immunization History Most Recent Tetanus Shot: 9 years ago Review of Systems All Other Systems Reviewed And Are Negative: Yes Constitutional: Positive: Negative Skin: Positive: Negative Eyes: Positive: Negative ENT: Positive: Negative Respiratory: Positive: Negative Cardiovascular: Positive: Negative Gastrointestinal: Positive: Other - see hpi Genitourinary: Positive: Negative Motor: Positive: Negative Neurovascular: Positive: Negative Musculoskeletal: Positive: Negative Neurological: Positive: Negative Psychological: Positive: Negative Is Patient Immunocompromised?: No Physical Exam Triage Information Reviewed: Yes Appearance: Well-Appearing, No Pain Distress, Well-Nourished Vital Signs: Initial Vital Signs Temp 98.3 F 10/11/18 21:24 Pulse 89 10/11/18 21:24 Resp 16 10/11/18 21:24 BP 137/91 10/11/18 21:24 Pulse Ox 100 10/11/18 21:24 Vital Signs Reviewed: Yes Eye Exam: Normal Eyes: Positive: Conjunctiva Clear Neck: Positive: Supple Respiratory: Positive: No respiratory distress Abdomen Description: Positive: Other: - On examination there is a 1 cm external hemorrhoid that's soft does not appear to be a thrombosed hemorrhoid. Is an area that looks like it has been bleeding but there is no active bleeding at this time. Musculoskeletal: Positive: Strength Intact, ROM Intact Neurological: Positive: Alert Psychological: Positive: Age Appropriate Behavior Skin Exam: Normal Course/Dx - Course Course Of Treatment: On examination there was a 1 cm soft hemorrhoid that did have an area that looked like it had been bleeding. Hemorrhoid did not look like it was thrombosed. No active bleeding. I discussed treatment with Anusol and also to have the patient follow-up with her moss gatherer. I let her know that if she got worse she had bleeding that did not stop and she felt lightheaded fever feels ill she needs to get reevaluated again in the emergency department right away. - Diagnoses Provider Diagnosis: Constipation, Hemorrhoids Discharge - Sign-Out/Discharge Documenting (check all that apply): Patient Departure All imaging exams completed and their final reports reviewed: No Studies - Discharge Plan Condition: Stable Disposition: HOME Prescriptions: Hydrocortisone Acetate [Anucort-Hc] 25 mg KS BID #20 sup Patient Education Materials: Hemorrhoids (ED) Referrals: Sharita Braun MD [Primary Care Provider] - [facility] [Provider Group] Additional Instructions: FOLLOW UP WITH YOUR GARMENT PRESSER AT [facility]. CALL TOMORROW TO ARRANGE FOLLOW UP. GO TO THE EMERGENCY DEPARTMENT IF YOUR CONDITION WORSENS; PAIN, THE BLEEDING DOES NOT STOP, YOU FEEL LIKE PASSING OUT, FEVER OR ANY QUESTIONS OR CONCERNS. - Billing Disposition and Condition Condition: STABLE Disposition: Home
== END 2018-10-11 23:19 | disposition home or self-care (01) ==
LOC: UCEAST 20:40
DX: K64.4 Residual hemorrhoidal skin tags (principal); K58.1 Irritable bowel syndrome with constipation; Z88.8 Allergy status to other drugs, medicaments and biological substances; Z88.1 Allergy status to other antibiotic agents; Z91.040 Latex allergy status; Z88.5 Allergy status to narcotic agent; Z88.0 Allergy status to penicillin; Z91.013 Allergy to seafood; Z91.09 Other allergy status, other than to drugs and biological substances
CPT/HCPCS: 99212; G0463

== ENCOUNTER 2019-04-17 05:28 | Emergency (ER) | payer BC ==
--- NOTE | 2019-04-17 05:46 | ED ---
Bite Injury/Animal - History of Current Complaint Chief Complaint: EDAnimalBite Stated Complaint: RAT BITE PER PT Time Seen by Provider: 04/17/19 05:39 Hx Obtained From: Patient Hx Last Menstrual Period: [id number] Pain Intensity: 9 - Allergies/Home Medications Allergies/Adverse Reactions: Allergies Allergy/AdvReac Type Severity Reaction Status Date / Time shellfish derived Allergy Severe throat Verified 04/17/19 05:37 swollen, itching levetiracetam [From [facility]] Allergy Unknown Altered Verified 04/17/19 05:37 Mental Status erythromycin base AdvReac Severe Nausea And Verified 04/17/19 05:37 Vomiting morphine AdvReac Severe Itching Verified 04/17/19 05:37 Penicillins AdvReac Severe Hives Verified 04/17/19 05:37 tramadol AdvReac Severe Nausea Verified 04/17/19 05:37 latex AdvReac Intermediate Itching Verified 04/17/19 05:37 sunflower seeds AdvReac Severe cold sores Uncoded 04/17/19 05:37 PMH/Surg Hx/FS Hx/Imm Hx Endocrine/Hematology History: Reports: Hx Thyroid Disease - hypothyroid Denies: Hx Diabetes Cardiovascular History: Reports: Other Cardiovascular Problems/Disorders - CARDIAC ARRYTHMIA SEEN A FEW YEARS AGO Denies: Hx Hypertension, Hx Pacemaker/ICD Respiratory History: Denies: Hx Asthma, Hx Chronic Obstructive Pulmonary Disease (COPD) GI History: Reports: Hx Gastroesophageal Reflux Disease Denies: Hx Ulcer History: Reports: Hx Kidney Infection Denies: Hx Renal Disease Musculoskeletal History: Denies: Hx Rheumatoid Arthritis, Hx Osteoporosis, Hx Scoliosis Sensory History: Reports: Hx Contacts or Glasses - glasses Denies: Hx Hearing Aid Opthamlomology History: Reports: Hx Contacts or Glasses - glasses Neurological History: Reports: Hx Migraine Denies: Hx Headaches, Other Neuro Impairments/Disorders Psychiatric History: Reports: Hx Anxiety, Hx Depression Denies: Hx Panic Disorder - Cancer History Hx Chemotherapy: No Hx Radiation Therapy: No - Surgical History Surgery Procedure, Year, and Place: R humerus; L knee tendon, WISDOM TEETH, lumpectomy Hx Anesthesia Reactions: No - Immunization History Date of Tetanus Vaccine: utd Date of Influenza Vaccine: none Infectious Disease History: No Infectious Disease History: Denies: Hx Clostridium Difficile, Hx Hepatitis, Hx Human Immunodeficiency Virus (HIV), Hx of Known/Suspected MRSA, Hx Shingles, Hx Tuberculosis, Hx Known/ Suspected VRE, Hx Known/Suspected VRSA, History Other Infectious Disease, Traveled Outside the [place] in Last 30 Days - Family History Known Family History: Positive: Cardiac Disease - @46, Hypertension, Diabetes - father, Other - father had "skin CA in eye" - Social History Alcohol Use: None Hx Substance Use: No Substance Use Type: Reports: None Hx Tobacco Use: No Smoking Status (MU): Never Smoked Tobacco Have You Smoked in the Last Year: No Physical Exam Vital Signs On Initial Exam: Initial Vitals Temp Pulse Resp BP Pulse Ox 96.8 F 101 15 149/96 99 04/17/19 05:29 04/17/19 05:29 04/17/19 05:29 04/17/19 05:29 04/17/19 05:29 Diagnostics - Vital Signs Vital Signs Temp Pulse Resp BP Pulse Ox 04/17/19 05:29 96.8 F 101 15 149/96 99 - Laboratory Lab Statement: Any lab studies that have been ordered have been reviewed, and results considered in the medical decision making process. Discharge ED - Discharge Plan Referrals: Sharita Braun MD [Primary Care Provider] -
[2019-04-17] MEDS ORDERED: Tetan/Diph/Pertus SYR(Tdap)* 0.5 ML SYR(BOOSTRIX) use SYR contains LATEX IM ONE (05:52)
--- NOTE | 2019-04-17 05:58 | ED ---
Bite Injury/Animal - HPI Summary HPI Summary: The patient is a 39 y/o female presenting to [facility] accompanied by with a chief complaint of domesticated rat bite to the first and third digits of the left hand. She reports that she had been handling the rat as usual when it latched onto her hand twice, causing bite wounds to the thumb and middle finger of the left hand. She endorses decreased ROM of the fingers secondary to pain. Currently, the pain is rated 9/10 in severity. She cleaned the wounds prior to arrival. She is unsure of her last tetanus but believes that it was in the last 10 years. PMHx: thyroid disease. Nonsmoker, no EtOH, no substance use. Medications reviewed. Allergies noted. - History of Current Complaint Chief Complaint: EDAnimalBite Stated Complaint: RAT BITE PER PT Time Seen by Provider: 04/17/19 05:39 Hx Obtained From: Patient Hx Last Menstrual Period: [id number] Onset of Injury: Happened minutes ago, Still Present Type of Bite: Pet - rat Has Animal Been Immunized?: N/A Severity Initially: Severe Severity Currently: Severe Pain Intensity: 9 Pain Scale Used: 0-10 Numeric Character: Abrasion/Laceration Aggravating Factor(s): Other - movement Alleviating Factor(s): Nothing Associated Signs And Symptoms: Positive: Limited ROM Animal Available for Observation: Yes - Allergies/Home Medications Allergies/Adverse Reactions: Allergies Allergy/AdvReac Type Severity Reaction Status Date / Time shellfish derived Allergy Severe throat Verified 04/17/19 05:37 swollen, itching levetiracetam [From [facility]] Allergy Unknown Altered Verified 04/17/19 05:37 Mental Status erythromycin base AdvReac Severe Nausea And Verified 04/17/19 05:37 Vomiting morphine AdvReac Severe Itching Verified 04/17/19 05:37 Penicillins AdvReac Severe Hives Verified 04/17/19 05:37 tramadol AdvReac Severe Nausea Verified 04/17/19 05:37 latex AdvReac Intermediate Itching Verified 04/17/19 05:37 sunflower seeds AdvReac Severe cold sores Uncoded 04/17/19 05:37 PMH/Surg Hx/FS Hx/Imm Hx Endocrine/Hematology History: Reports: Hx Thyroid Disease - hypothyroid Denies: Hx Diabetes Cardiovascular History: Reports: Other Cardiovascular Problems/Disorders - CARDIAC ARRYTHMIA SEEN A FEW YEARS AGO Denies: Hx Hypertension, Hx Pacemaker/ICD Respiratory History: Denies: Hx Asthma, Hx Chronic Obstructive Pulmonary Disease (COPD) GI History: Reports: Hx Gastroesophageal Reflux Disease Denies: Hx Ulcer History: Reports: Hx Kidney Infection Denies: Hx Renal Disease Musculoskeletal History: Denies: Hx Rheumatoid Arthritis, Hx Osteoporosis, Hx Scoliosis Sensory History: Reports: Hx Contacts or Glasses - glasses Denies: Hx Hearing Aid Opthamlomology History: Reports: Hx Contacts or Glasses - glasses Neurological History: Reports: Hx Migraine Denies: Hx Headaches, Other Neuro Impairments/Disorders Psychiatric History: Reports: Hx Anxiety, Hx Depression Denies: Hx Panic Disorder - Cancer History Hx Chemotherapy: No Hx Radiation Therapy: No - Surgical History Surgical History: Yes Surgery Procedure, Year, and Place: R humerus; L knee tendon, WISDOM TEETH, lumpectomy Hx Anesthesia Reactions: No - Immunization History Date of Tetanus Vaccine: utd Date of Influenza Vaccine: none Infectious Disease History: No Infectious Disease History: Denies: Hx Clostridium Difficile, Hx Hepatitis, Hx Human Immunodeficiency Virus (HIV), Hx of Known/Suspected MRSA, Hx Shingles, Hx Tuberculosis, Hx Known/ Suspected VRE, Hx Known/Suspected VRSA, History Other Infectious Disease, Traveled Outside the [place] in Last 30 Days - Family History Known Family History: Positive: Cardiac Disease - @46, Hypertension, Diabetes - father, Other - father had "skin CA in eye" - Social History Alcohol Use: None Hx Substance Use: No Substance Use Type: Reports: None Hx Tobacco Use: No Smoking Status (MU): Never Smoked Tobacco Have You Smoked in the Last Year: No Review of Systems Positive: Decreased ROM - in first and second fingers secondary to pain Positive: Other - wounds to the first and second fingers of left hand All Other Systems Reviewed And Are Negative: Yes Physical Exam - Summary Physical Exam Summary: Appearance: Well-appearing, Well-nourished, lying in bed comfortable Skin: Warm, dry, no obvious rash Eyes: sclera anicteric, no conjunctival pallor ENT: mucous membranes moist Neck: deferred Respiratory: No signs of respiratory distress Cardiovascular: Appears well perfused, pulses are nml Abdomen: deferred Musculoskeletal: Moving all 4 extremities without obvious discomfort; Small bite wound over the mid proximal phalanx dorsally of the third finger with some associated soft tissue swelling, On the first finger there is limited ROM of the MCP joint due to pain Neurological: Awake and alert, mentation is normal, speech is fluent and appropriate Psychiatric: affect is normal, does not appear anxious or depressed Triage Information Reviewed: Yes Vital Signs On Initial Exam: Initial Vitals Temp Pulse Resp BP Pulse Ox 96.8 F 101 15 149/96 99 04/17/19 05:29 04/17/19 05:29 04/17/19 05:29 04/17/19 05:29 04/17/19 05:29 Vital Signs Reviewed: Yes Procedures - Sedation Patient Received Moderate/Deep Sedation with Procedure: No Diagnostics - Vital Signs Vital Signs Temp Pulse Resp BP Pulse Ox 04/17/19 05:29 96.8 F 101 15 149/96 99 - Laboratory Lab Statement: Any lab studies that have been ordered have been reviewed, and results considered in the medical decision making process. - Radiology L Thumb XR Radiology Interpretation Completed By: ED Physician Summary of Radiographic Findings: No evidence for fracture. ED physician has reviewed and interpreted this report. Pending official read. Re-Evaluation - Re-Evaluation First Eval Re-Evaluation Time: 06:30 Comment: We discussed the results and plan for discharge. Bite Injury Course/Dx - Course Course Of Treatment: 39 y/o female presenting with domesticated rat bites to the first and third digits of the left hand with decreased ROM secondary to pain onset this morning. Physical exam reveals a small bite wound over the mid proximal phalanx dorsally of the third finger with some associated soft tissue swelling and on the first finger there is limited ROM of the MCP joint due to pain. Patient's last TDP was 05/27/18, so we will not need to administer one today. Left thumb XR is negative for fracture. She is safe for discharge with rx for Augmentin if she notices signs of infection. Patient understands and agrees with plan. - Diagnoses Provider Diagnosis: Animal bite of finger Discharge ED - Sign-Out/Discharge Documenting (check all that apply): Patient Departure - Patient will be discharged home. - Discharge Plan Condition: Good Disposition: HOME Patient Education Materials: Animal Bite (ED) Referrals: Sharita Braun MD [Primary Care Provider] - Additional Instructions: Most bites like this do not get infected, but I have sent a prescription to your pharmacy in case you notice the wound starting to look infected, i.e. red, swollen, warm, draining. If these start to happen, go ahead and fill the prescription and start taking it. It should start to improve within a couple of days. If it is getting markedly worse despite antibiotic we should see you back here forthwith. The xray of the thumb looked ok. - Attestation Statements Document Initiated by Rocioibe: Yes Documenting Scribe: Carole Yi Provider For Whom Arnol is Documenting (Include Credential): Dr. Sinan Heard MD Scribe Attestation: I, Carole Yi, scribed for Dr. Sinan Heard MD on 04/17/19 at 0642. Status of Scribe Document: Ready
--- OUTSIDE RECORDS SUMMARY | 2019-04-17 06:02 | XMS REPORT | Summary of Care ---
:1980 Author Organization [facility] Address [address] [facility] [place] [address] Care Team Providers Name Role Phone SalomeSharita negron Primary Care Provider Reason for Visit Reason Comments GI Problem Pt. complaining of rectal bleeding X 1 week, fatigue, occasional abdominal pain & frequent hemorrhoids. Encounter Details Date Type Department Care Team Description 04/10/2019 Office Visit [place] (Primary Dx); Gastroenterology/He Abbie Shetty NP Constipation, unspecified constipation type; patology 1 [facility] [address] External hemorrhoids; [address] [place] [address] [place]ritis [place] [address] Allergies Active Allergy Reactions Severity Noted Date Comments Erythromycin GI Reaction Low 02/13/2015 Latex Rash, Hives Medium 10/18/2012 Other reaction(s): Itching Morphine Hives Medium 02/13/2015 Opioid Analgesics Dermatologic Reaction, GI Medium 10/18/2012 Reaction Penicillins Swelling, Hives Medium 02/13/2015 Shellfish Allergy Swelling 11/24/2018 Ingham Oil Dermatologic Reaction 04/24/2017 Tramadol GI Reaction 02/13/2015 Other reaction(s): Nausea documented as of this encounter (statuses as of 04/11/2019) Medications Medication Sig Dispensed Refills Start Date End Date Status ibuprofen (IBU-200) Take 200 mg 0 Active 200 MG Oral Tab by mouth EVERY SIX HOURS NEEDED for Pain. Cholecalciferol Take by 0 Active (VITAMIN D PO) mouth DAILY. APPLE CIDER VINEGAR Take by 0 Active PO mouth DAILY. docusate sodium Take 1 Cap 60 Cap 1 02/18/2018 Active (COLACE) 100 MG Oral by mouth CapIndications: TWICE DAILY. Constipation, unspecified constipation type Magnesium 125 MG Oral Take 1 Cap 90 Cap 1 05/05/2018 Active CapIndications: by mouth Constipation, THREE TIMES unspecified DAILY WITH constipation type MEALS. BuPROPion HCl 200 MG Take 1 Tab 60 Tab 5 01/05/2019 Active Oral TABLET SR 12 by mouth HRIndications: TWICE DAILY. Depression, unspecified depression type valacyclovir Take 1 Tab 30 Tab 5 01/18/2019 Active (VALTREX) 500 MG Oral by mouth TabIndications: DAILY. Herpes simplex Topiramate 50 MG Oral Take 1 Tab 30 Tab 5 01/30/2019 Active Tab by mouth DAILY. escitalopram TAKE ONE 30 Tab 5 03/14/2019 Active (LEXAPRO) 20 MG Oral TABLET BY TabIndications: MOUTH EVERY Depression, DAY unspecified depression type levothyroxine Take 1 Tab 30 Tab 2 03/27/2019 Active (SYNTHROID) 112 MCG by mouth Oral Tab BEFORE BREAKFAST. famotidine (PEPCID) Take 1 Tab 60 Tab 1 04/10/2019 Active 20 MG Oral Tab by mouth TWICE DAILY. levothyroxine Take 1 Tab 90 Tab 1 02/27/2019 04/10/2019 Discontinued (SYNTHROID) 125 MCG by mouth Oral Tab BEFORE BREAKFAST. documented as of this encounter (statuses as of 04/11/2019) Active Problems Problem Noted Date Depression 09/30/2016 Hypothyroidism 08/18/2015 documented as of this encounter (statuses as of 04/11/2019) Social History Tobacco Use Types Packs/Day Years Used Date Never Smoker 0 Smokeless Tobacco: Never Used Alcohol Use Drinks/Week oz/Week Comments No 0 Standard drinks or equivalent 0.0 Social Isolation Answer Date Recorded In a typical week, how many times do you talk on the phone Once a week 2018 with family, friends, or neighbors? How often do you get together with friends or relatives? Once a week 2018 How often do you attend mormonism or christian services? Never 05/05/2018 Do you belong to any clubs or organizations such as mormonism No 05/05/2018 groups, unions, fraternal or athletic groups, or school groups? How often do you attend meetings of the clubs or Never 05/05/2018 organizations you belong to? Are you now , , , , never 05/05/2018 or living with a partner? Physical Activity Answer Date Recorded On average, how many days per week do you engage in moderate to 1 day 2018 strenuous exercise (like walking fast, running, jogging, dancing, swimming, biking, or other activities that cause a light or heavy sweat)? On average, how many minutes do you engage in exercise at this 30 min 2018 level? Stress Answer Date Recorded Do you feel stress - tense, restless, nervous, or anxious, or Very much 05/05 unable to sleep at night because your mind is troubled all the time - these days? Financial Resource Strain Answer Date Recorded How hard is it for you to pay for the very basics like Not very hard 2018 food, housing, medical care, and heating? Intimate Partner Violence Answer Date Recorded Within the last year, have you been afraid of your partner or No 05/05/2018 ex-partner? Within the last year, have you been humiliated or emotionally No 05/05/2018 abused in other ways by your partner or ex-partner? Within the last year, have you been kicked, hit, slapped, or No 05/05/2018 otherwise physically hurt by your partner or ex-partner? Within the last year, have you been raped or forced to have any No 05/05/2018 kind of sexual activity by your partner or ex-partner? Food Insecurity Answer Date Recorded Within the past 12 months, you worried that your food would Never true 2018 run out before you got money to buy more. Within the past 12 months, the food you bought just didn't Never true 2018 last and you didn't have money to get more. Transportation Needs Answer Date Recorded In the past 12 months, has lack of transportation kept you from No 05/05/2018 medical appointments or from getting medications? In the past 12 months, has lack of transportation kept you from No 05/05/2018 meetings, work, or getting things needed for daily living? Sex Assigned at Date Recorded Not on file Job Start Date Occupation Industry Not on file Not on file Not on file Travel History Travel Start Travel End No recent travel history available. documented as of this encounter Last Filed Vital Signs Vital Sign Reading Time Taken Comments Blood Pressure 116/80 04/10/2019 3:10 PM EST Pulse 66 04/10/2019 3:10 PM EST Temperature 36.5 04/10/2019 3:10 PM EST C (97.7 F) Respiratory Rate - - Oxygen Saturation - - Inhaled Oxygen Concentration - - Weight 57.4 kg (126 lb 8 oz) 04/10/2019 3:10 PM EST Height 165.1 cm (5' 5") 04/10/2019 3:10 PM EST Body Mass Index 21.05 04/10/2019 3:10 PM EST documented in this encounter Patient Instructions Patient InstructionsAbbie Gallegos NP - 04/10/2019 3:20 PM EST1. Start Pepcid twice daily to help with nausea 2. Use Vaseline to the area after showers, and use this when cleansing after bowel movements as well 3. See information below 4. Follow up in 1 month Perianal Dermatitis The Problem Perianal dermatitis is a common problem. The main symptoms are anal burning, itching, irritation, and bleeding. Almost all people with hemorrhoids have perianal dermatitis. The terms, perianal dermatitis refer to an inflammation of the skin (dermatitis)in the area around the anus. When there is such irritation, common sense suggests that one should try to keep the area clean,especially an area which is often soiled with feces. But, this is one of the very rare occasions when common sense is WRONG. Human skin is not meant to be constantly exposed to moisture. [facility]-boss hands is an example of what can happen when skin is frequently exposed to water and soap.The skin may crack and bleed. Constantly washing dish -boss hands: to keep them clean would only makethe skin worse. The skin near the anus is naturally often moist. The first defense of of this skinis a layer of oil. The skin then may be damaged. If the skin becomes brittle, it may split or crack with a bowel movement. There may be bleeding or oozing of serum. /as the cuts heal there may be pain or intense itching; Treatment The first and most important step to healing is to stop the injury. Exposure to water should Be kept to a minimum. Soap should never be directly applied to the anal area. The area should never be scrubbed with a cloth. The area can be cleaned with a product called Balneol, this cleaning lotion is meant to be used on the toilet tissue- to clean and also to reduce the irritation from the tissue. Several ointments may also be helpful. 1. Zinc oxide ointment or Desitin ( a diaper rash ointment) can protect the skin form moisture while keeping the natural oils in. 2. If there is itching orpain, an anesthetic can be added to the zinc oxide. Two such ointments are Anusol and Tronolane. All the products mentioned are available without a prescription. documented in this encounter Progress Notes Abbie Gallegos NP - 04/10/2019 3:20 PM EST PATIENT: Nikki Ahn : 1980 DATE OF SERVICE: 04/10/2019 REFERRING PRACTITIONER: Sharita Braun PRIMARY CARE PROVIDER: Sharita Braun CHIEF COMPLAINT: Chief Complaint Patient presents with GI Problem Pt. complaining of rectal bleeding X 1 week, fatigue, occasional abdominal pain & frequent hemorrhoids. Subjective HISTORY OF PRESENT ILLNESS: Nikki Ahn is a 39-y.o. female who presents for follow-up of IBS C, and known gastritis found on EGD 04/2018. She reports worsening nausea in the past 2 months and rectal discomfort andbleeding with bowel movements. Is taking Miralax daily, having BM every other day which is soft and formed. Reports nausea is worse in the morning, bloating, belching and decreased appetite. Denies abdominal pain,heartburn, dysphagia, fatigue,vomiting, melena, hamatemesis, hematochezia, constipation, diarrhea, jaundice, fevers, chills, night sweats, weight loss, easy bruising, chest pain, shortness of breath, dysuria, hematuria, pyuria, joint pains, acholic stools, dark urine or systemic pruritis. Current Outpatient Medications Medication Sig APPLE CIDER VINEGAR PO Take by mouth DAILY. BuPROPion HCl 200 MG Oral TABLET SR 12 HR Take 1 Tab by mouth TWICE DAILY. Cholecalciferol (VITAMIN D PO) Take by mouth DAILY. docusate sodium (COLACE) 100 MG Oral Cap Take 1 Cap by mouth TWICE DAILY. escitalopram (LEXAPRO) 20 MG Oral Tab TAKE ONE TABLET BY MOUTH EVERY DAY famotidine (PEPCID) 20 MG Oral Tab Take 1 Tab by mouth TWICE DAILY. ibuprofen (IBU-200) 200 MG Oral Tab Take 200 mg by mouth EVERY SIX HOURS NEEDED for Pain. levothyroxine (SYNTHROID) 112 MCG Oral Tab Take 1 Tab by mouth BEFORE BREAKFAST. Magnesium 125 MG Oral Cap Take 1 Cap by mouth THREE TIMES DAILY WITH MEALS. Topiramate 50 MG Oral Tab Take 1 Tab by mouth DAILY. valacyclovir (VALTREX) 500 MG Oral Tab Take 1 Tab by mouth DAILY. No current facility-administered medications for this visit. Allergies Allergen Reactions Latex Rash and Hives Other reaction(s): Itching Morphine Hives Opioid Analgesics Dermatologic Reaction and GI Reaction Penicillins Swelling and Hives Shellfish Allergy Swelling Ingham Oil Dermatologic Reaction Tramadol GI Reaction Other reaction(s): Nausea Erythromycin GI Reaction REVIEW OF SYSTEMS: All remaining review of systems was negative except for as noted in the history of present illness/subjective. Objective PHYSICAL EXAMINATION: VITALS: BP 116/80 | Pulse 66 | Temp 97.7 F (36.5 C) | Ht 5' 5" ( 1.651 m) | Wt 126 lb 8 oz (57.4 kg) | BMI 21.05 kg/m Body mass index is 21.05 kg/m. GENERAL: alert, oriented, no acute distress. LUNGS: clear to auscultation bilaterally. HEART: regular rhythm, no murmurs, no gallops, no rubs. ABDOMEN: general exam: soft, non-tender, non-distended, without masses or organomegaly, normal active bowel sounds, Cifuentes's sign negative. RECTAL: hemorrhoids: external, perianal dermatitis. IMPRESSION: ICD-9-CM ICD-10-CM 1. Nausea 787.02 R11.0 HCG QUALITATIVE SERUM 2. Constipation, unspecified constipation type 564.00 K59.00 3. External hemorrhoids 455.3 K64.4 4. Gastritis and gastroduodenitis 535.50 K29.70 K29.90 Plan PLAN: Patient Instructions 1. Start Pepcid twice daily to help with nausea 2. Use Vaseline to the area after showers, and use this when cleansing after bowel movements as well 3. See information below 4. Follow up in 1 month Perianal Dermatitis The Problem Perianal dermatitis is a common problem. The main symptoms are anal burning, itching, irritation, and bleeding. Almost all people with hemorrhoids have perianal dermatitis. The terms, perianal dermatitis refer to an inflammation of the skin (dermatitis)in the area around the anus. When there is such irritation, common sense suggests that one should try to keep the area clean,especially an area which is often soiled with feces. But, this is one of the very rare occasions when common sense is WRONG. Human skin is not meant to be constantly exposed to moisture. [facility]-boss hands is an example of what can happen when skin is frequently exposed to water and soap.The skin may crack and bleed. Constantly washing dish -boss hands: to keep them clean would only makethe skin worse. The skin near the anus is naturally often moist. The first defense of of this skinis a layer of oil. The skin then may be damaged. If the skin becomes brittle, it may split or crack with a bowel movement. There may be bleeding or oozing of serum. /as the cuts heal there may be pain or intense itching; Treatment The first and most important step to healing is to stop the injury. Exposure to water should Be kept to a minimum. Soap should never be directly applied to the anal area. The area should never be scrubbed with a cloth. The area can be cleaned with a product called Balneol, this cleaning lotion is meant to be used on the toilet tissue- to clean and also to reduce the irritation from the tissue. Several ointments may also be helpful. 1. Zinc oxide ointment or Desitin ( a diaper rash ointment) can protect the skin form moisture while keeping the natural oils in. 2. If there is itching orpain, an anesthetic can be added to the zinc oxide. Two such ointments are Anusol and Tronolane. All the products mentioned are available without a prescription. Author: Abbie Gallegos NP 04/10/2019 15:28 documented in this encounter Plan of Treatment Date Type Specialty Care Team Description 04/25/2019 Ancillary Procedure Radiology 05/01/2019 Office Visit Neurology Avinash Mcclellan MD [address] [place] [address] [phone] 05/11/2019 Office Visit Gastroenterology Abbie Gallegos NP [address] [place] [address] [phone] Health Maintenance Due Date Last Done Comments DTaP/Tdap/Td Vaccines (1 - 1989 Tdap) PAP SMEAR 07/18/2017 07/18/2014 MAMMOGRAM (SCREENING) 02/23/2019 02/23/2018 DEPRESSION SCREENING 09/21/2019 09/20/2018, 09/20/2018 LIPID DISORDER SCREENING 05/05/2023 05/05/2018 HEPATITIS A IMMUNIZATION Aged Out No longer eligible based SERIES on patient's age to complete this topic HPV IMMUNIZATION SERIES Aged Out No longer eligible based on patient's age to complete this topic MENINGOCOCCAL VACCINE IMM Aged Out No longer eligible based on patient's age to complete this topic PNEUMOCOCCAL 0-64 YRS Aged Out No longer eligible based on patient's age to complete this topic documented as of this encounter Goals Goal Patient Goal Associated Recent Patient-Stated? Author Type Problems Progress Depression Depression 17 No lucas Braun (PHQ-9) (09/20/2018 Sharita, total score < 5 1:41 PM EDT) Note: This is an individualized treatment (depression) goal for Nikki Tillmano: Displayed above is your goal for a depression screening (PHQ-9) score that would indicate good control of your depression. Keep a regular sleep schedule Lifestyle No Sharita Braun MD Note: This is an individualized lifestyle goal for Nikki Contento: Please maintain a regular sleep schedule. This may help with some symptoms of depression. Take all prescribed medications as Self-management No Sharita Braun MD directed Note: This is an individualized self-management goal for Nikki Tillmano: Please take all prescribed medications as directed. 1. Do not skip doses. If you cannot afford your medications, talk with your doctor. 2. Use a pill reminder system such as a pill box if needed. Your pharmacist can help you with this. 3. Contact your Pharmacy 5 days before your medication runs out. If you cannot take your medications for any reasons, talk with your doctor. 4. Please bring all of your medication bottles and inhalers (or a list of all your medications/inhalers) with you to every visit. Potential barriers to meeting all of your care plan goals will continue to be addressed on an ongoing basis. documented as of this encounter Procedures Procedure Name Priority Date/Time Associated Comments Diagnosis HCG QUALITATIVE SERUM Routine 04/10/2019 3:33 Nausea Results for this PM EST procedure are in the results section. documented in this encounter Results HCG QUALITATIVE SERUM (04/10/2019 3:33 PM EST) Hcg Qualitative Serum Negative Negative [facility] Specimen Blood - Blood specimen (specimen) Performing Organization Address City/State/Zipcode Phone Number [facility] [address] [place] [address] [phone] documented in this encounter Visit Diagnoses Diagnosis Nausea Nausea alone Constipation, unspecified constipation type External hemorrhoids External hemorrhoids without mention of complication Gastritis and gastroduodenitis Unspecified gastritis and gastroduodenitis without mention of hemorrhage documented in this encounter Insurance Payer Benefit Plan / Subscriber ID Effective Dates Phone Address Type Group [employer] xxxxxxxxxxxx 2017-Present [employer] Guarantor Name Account Type Relation to Date of Phone Billing Patient Address [place] Personal/Family 1980 [address] (Home) [facility] [id number] documented as of this encounter
[2019-04-17 06:41] VITALS: BP 126/64
== END 2019-04-17 06:35 | disposition home or self-care (01) ==
LOC: ED 05:28
DX: S61.052A Open bite of left thumb without damage to nail, initial encounter (principal); S61.253A Open bite of left middle finger without damage to nail, initial encounter; W53.11XA Bitten by rat, initial encounter; Y92.9 Unspecified place or not applicable; E03.9 Hypothyroidism, unspecified; K21.9 Gastro-esophageal reflux disease without esophagitis; F41.9 Anxiety disorder, unspecified; F32.9 Major depressive disorder, single episode, unspecified
CPT/HCPCS: 90471; 99282

== ENCOUNTER 2019-05-24 03:15 | Emergency (ER) | payer BC ==
--- OUTSIDE RECORDS SUMMARY | 2019-05-24 03:29 | XMS REPORT | Summary of Care ---
:1980 Author Organization [facility] Address [address] [place] [address] Care Team Providers Name Role Phone Sharita Braun Primary Care Provider Reason for Referral MRI/CAT/PET Scan (Routine) Status Reason Specialty Diagnoses / Referred By Referred To Procedures Contact Contact Pending Review Diagnoses Breast tenderness Aparna, Procedures US BREAST COMPLETE BILAT MD Sharita [address] [id number] Reason for Visit Reason Comments Check Up pt c/o of breast pain left breast is worse , was some white discharge in left breast and scare is red Encounter Details Date Type Department Care Team Description 05/16/2019 Office Visit [facility], Breast tenderness Practice MD Sharita (Primary Dx) [address] [place] [address] [place] [address] [phone] Allergies Active Allergy Reactions Severity Noted Date Comments Erythromycin GI Reaction Low 02/13/2015 Latex Rash, Hives Medium 10/18/2012 Other reaction(s): Itching Morphine Hives Medium 02/13/2015 Opioid Analgesics Dermatologic Reaction, GI Medium 10/18/2012 Reaction Penicillins Swelling, Hives Medium 02/13/2015 Shellfish Allergy Swelling 11/24/2018 [place] Oil Dermatologic Reaction 04/24/2017 Tramadol GI Reaction 02/13/2015 Other reaction(s): Nausea documented as of this encounter (statuses as of 05/16/2019) Medications Medication Sig Dispensed Refills Start Date End Date Status ibuprofen (IBU-200) 200 Take 200 mg by 0 Active MG Oral Tab mouth EVERY SIX HOURS NEEDED for Pain. Cholecalciferol (VITAMIN Take by mouth 0 Active D PO) DAILY. APPLE CIDER VINEGAR PO Take by mouth 0 Active DAILY. docusate sodium (COLACE) Take 1 Cap by 60 Cap 1 02/18/2018 Active 100 MG Oral mouth TWICE CapIndications: DAILY. Constipation, unspecified constipation type Magnesium 125 MG Oral Take 1 Cap by 90 Cap 1 05/05/2018 Active CapIndications: mouth THREE Constipation, unspecified TIMES DAILY constipation type WITH MEALS. BuPROPion HCl 200 MG Oral Take 1 Tab by 60 Tab 5 01/05/2019 Active TABLET SR 12 mouth TWICE HRIndications: DAILY. Depression, unspecified depression type valacyclovir (VALTREX) Take 1 Tab by 30 Tab 5 01/18/2019 Active 500 MG Oral mouth DAILY. TabIndications: Herpes simplex Topiramate 50 MG Oral Tab Take 1 Tab by 30 Tab 5 01/30/2019 Active mouth DAILY. escitalopram (LEXAPRO) 20 TAKE ONE TABLET 30 Tab 5 03/14/2019 Active MG Oral TabIndications: BY MOUTH EVERY Depression, unspecified DAY depression type levothyroxine (SYNTHROID) Take 1 Tab by 30 Tab 2 03/27/2019 Active 112 MCG Oral Tab mouth BEFORE BREAKFAST. famotidine (PEPCID) 20 MG Take 1 Tab by 60 Tab 1 04/10/2019 Active Oral Tab mouth TWICE DAILY. documented as of this encounter (statuses as of 05/16/2019) Active Problems Problem Noted Date Depression 09/30/2016 Hypothyroidism 08/18/2015 documented as of this encounter (statuses as of 05/16/2019) Social History Tobacco Use Types Packs/Day Years [...] How often do you attend mormonism or denominational services? Never 05/05/2018 Do you belong to [...] Sign Reading Time Taken Comments Blood Pressure 100/60 05/16/2019 4:33 PM EST Pulse 86 05/16/2019 4:33 PM EST Temperature 36.9 05/16/2019 4:33 PM EST C (98.5 F) Respiratory Rate - - Oxygen Saturation 100% 05/16/2019 4:33 PM EST Inhaled Oxygen Concentration - - Weight 57.2 kg (126 lb) 05/16/2019 4:33 PM EST Height 165.1 cm (5' 5") 05/16/2019 4:33 PM EST Body Mass Index 20.97 05/16/2019 4:33 PM EST documented in this encounter Patient Instructions Patient InstructionsSharita Braun MD - 05/16/2019 4:40 PM EST1. Schedule Mammo-, breast US 2. Reduce caffeine intakeElectronically signed by Sharita Braun MD at 4:45 PM EST documented in this encounter Progress Notes Sharita Braun MD - 05/16/2019 4:40 PM EST Patient: Nikki Ahn Date of Service: 05/16/2019 Subjective: Nikki Ahn is a 39-y.o. female who presents for Chief Complaint Patient presents with Check Up pt c/o of breast pain left breast is worse , was some white discharge in left breast and scare is red Patient comes with complains of bilateral breast tenderness, more on the L Has history of L fibroadenoma, s/p lumpectomy Past Medical History: Diagnosis Date Head injury Headache postraumatic Hypothyroidism Pelvic fracture (HCC) Right humeral fracture 11/04/2002 ORIF Tear of cruciate ligament of knee R Tendon rupture, nontraumatic L knee surgical repair Outpatient Medications as of 05/16/2019 Medication Sig Dispense Refill APPLE CIDER VINEGAR PO Take by mouth DAILY. BuPROPion HCl 200 MG Oral TABLET SR 12 HR Take 1 Tab by mouth TWICE DAILY. 60 Tab 5 Cholecalciferol (VITAMIN D PO) Take by mouth DAILY. docusate sodium (COLACE) 100 MG Oral Cap Take 1 Cap by mouth TWICE DAILY. 60 Cap 1 escitalopram (LEXAPRO) 20 MG Oral Tab TAKE ONE TABLET BY MOUTH EVERY DAY 30 Tab 5 famotidine (PEPCID) 20 MG Oral Tab Take 1 Tab by mouth TWICE DAILY. 60 Tab 1 ibuprofen (IBU-200) 200 MG Oral Tab Take 200 mg by mouth EVERY SIX HOURS NEEDED for Pain. levothyroxine (SYNTHROID) 112 MCG Oral Tab Take 1 Tab by mouth BEFORE BREAKFAST. 30 Tab 2 Magnesium 125 MG Oral Cap Take 1 Cap by mouth THREE TIMES DAILY WITH MEALS. 90 Cap 1 Topiramate 50 MG Oral Tab Take 1 Tab by mouth DAILY. 30 Tab 5 valacyclovir (VALTREX) 500 MG Oral Tab Take 1 Tab by mouth DAILY. 30 Tab 5 No current facility-administered medications on file as of 05/16/2019. Allergies Allergen Reactions Latex Rash and Hives Other reaction(s): Itching Morphine Hives Opioid Analgesics Dermatologic Reaction and GI Reaction Penicillins Swelling and Hives Shellfish Allergy Swelling [place] Oil Dermatologic Reaction Tramadol GI Reaction Other reaction(s): Nausea Erythromycin GI Reaction Review of Systems: All remaining review of systems was negative. Objective: BP 100/60 (BP Location: Left arm, Patient Position: Sitting) Pulse 86 Temp 98.5 F (36.9 C) Ht 5' 5" (1.651 m) Wt 126 lb (57.2 kg) LMP 05/02/2019 (Approximate) SpO2 100% BMI 20.97 kg/m2 General appearance: alert, well appearing, and in no distress. Breast exam: breasts appear normal, no suspicious masses, bilateral tenderness. L breast - scar tissue ICD-9-CM ICD-10-CM 1. Breast tenderness 611.71 N64.4 MAMMO DIAG TOMOSYNTHESIS BILAT US BREAST COMPLETE BILAT Patient Instructions 1. Schedule Mammo-, breast US 2. Reduce caffeine intake . . Author: Sharita Braun MD documented in this encounter Plan of Treatment Date Type Specialty Care Team Description 06/01/2019 Ancillary Procedure Radiology 07/24/2019 Office Visit Neurology Avinash Mcclellan MD [address] [id number] Name Type Priority Associated Diagnoses Order Schedule MAMMO DIAG TOMOSYNTHESIS Imaging Routine Breast tenderness Expected: 2019, BILAT Expires: 08/13/2020 US BREAST COMPLETE BILAT Imaging Routine Breast tenderness Expected: 2019, Expires: 08/13/2020 Health Maintenance Due Date Last Done Comments PAP SMEAR 07/18/2017 07/18/2014 MAMMOGRAM (SCREENING) 02/23/2019 02/23/2018 DTaP/Tdap/Td Vaccines (1 - 08/10/2019 Postponed from 1989 Tdap) (Other) DEPRESSION SCREENING 09/21/2019 09/20/2018, 09/20/2018 LIPID DISORDER [...] Type Problems Progress Depression Depression 19 No Aparna screen (PHQ-9) (09/20/2018 Sharita, total score < 5 1:41 PM EDT) Note: This is an individualized treatment (depression) goal for Nikki Ahn: Displayed above is your goal for a depression screening (PHQ-9) score that would indicate good control of your depression. Keep a regular sleep schedule Lifestyle No Sharita Braun MD Note: This is an individualized lifestyle goal for Nikki Tillmano: Please maintain a regular sleep schedule. This [...] ongoing basis. documented as of this encounter Results Not on filedocumented in this encounter Visit Diagnoses Diagnosis Breast tenderness Mastodynia documented in this encounter Insurance Payer Benefit Plan / Subscriber ID Effective Dates Phone Address Type Group [employer] xxxxxxxxxxxx 2017-Present [employer] Guarantor Name Account Type Relation to Date of Phone Billing Patient Address [place] Personal/Family [phone] (Home) [facility] [id number] documented as of this encounter
[2019-05-24 04:06] LABS: ABS Basophils 0.1 10^3/ul (0-0.2); ABS Eosinophils 0.4 10^3/ul (0-0.6); ABS Lymphocytes 1.7 10^3/ul (1.0-4.8); ABS Monocytes 0.5 10^3/ul (0-0.8); Hematocrit 38 % (35-47); Hemoglobin 13.1 g/dL (12.0-16.0); Lymphocyte % 22.2 %; Mean Corpuscular HGB Conc 34 g/dL (31-36); Mean Corpuscular Hemoglobin 31 pg (27-31); Mean Corpuscular Volume 91 fL (80-97); Mean Platelet Volume 8.8 fL (7.4-10.4); Platelet Count 232 10^3/uL (150-450); Red Blood Count 4.25 10^6 /uL (3.70-4.87); Red Cell Distribution Width 14 % (10-15); White Blood Count 7.7 10^3/uL (3.5-10.8)
[2019-05-24 04:10] LABS: INR 1.1 (0.82-1.09)
[2019-05-24 04:14] LABS: Urine Appearance Turbid; Urine Bilirubin Negative (Negative); Urine Blood Negative (Negative); Urine Color Yellow; Urine Glucose Negative (Negative); Urine Ketones Negative (Negative); Urine Nitrite Negative (Negative); Urine Protein Negative (Negative); Urine Specific Gravity 1.023 (1.010-1.030); Urine Urobilinogen Negative (Negative)
[2019-05-24 04:22] LABS: Albumin 4.1 g/dL (3.2-5.2); Albumin/Globulin Ratio 2.1 (1-3); Calcium 8.8 mg/dL (8.6-10.3); EGFR Non-African American 85.2 (>60); Magnesium 1.9 mg/dL (1.9-2.7); Total Bilirubin 0.6 mg/dL (0.2-1.0); Total Protein 6.1 g/dL (6.4-8.9)
[2019-05-24 04:29] LABS: HCG Pregnancy 0.67 mIU/mL
[2019-05-24 04:30] LABS: Urine Bacteria Absent (Absent); Urine Red Blood Cell 2+(6-10/hpf) (Absent); Urine Squamous Epithelial Cell Present (Absent); Urine White Blood Cell 3+(>20/hpf) (Absent)
[2019-05-24 04:33] LABS: Urine Benzodiazepine Screen None Detected (None Detect); Urine Opiates Screen None Detected (None Detect)
--- NOTE | 2019-05-24 05:00 | ED ---
Complex/Multi-Sys Presentation - HPI Summary HPI Summary: The patient is a 39-year-old female presenting to [facility] with a chief complaint of nausea and lightheadedness onset over the last three weeks. She reports that the symptoms initially began while she was reading, and eventually resolved, but she has been experiencing intermittent episodes since then. She notes that the symptoms are worsened with reading or watching TV. The symptoms usually resolve after taking a nap but then return throughout the day. She endorses subjective fevers, chills, diaphoresis, abdominal discomfort worse on left, headaches, and intermittent diplopia. She denies vomiting. Symptoms currently rated 0/10 in severity. She has taken Ibuprofen and Dramamine to no relief. She is not on any new medications or has had changes in doses, although she stopped taking her Lexapro last week after her current symptoms began. She has not experienced these symptoms before. She had her vision checked within the last year. Past medical history significant for hypothyroidism, GERD, migraines, anxiety, depression. Nonsmoker, no EtOH, no substance use. Medications reviewed. Allergies noted. - History Of Current Complaint Chief Complaint: EDGeneral Time Seen by Provider: 05/24/19 03:44 Hx Obtained From: Patient Onset/Duration: Gradual Onset, Lasting Weeks - 3, Still Present Timing: Intermittent, Lasting:, Hours Severity Currently: None Severity Initially: Moderate Aggravating Factor(s): reading, watching TV Alleviating Factor(s): resting Associated Signs And Symptoms: Positive: Headache, Nausea, Abdominal Pain - worse on left, Fever - subjective, Other - lightheadedness, chills, diaphoresis , diplopia. Negative: Vomiting - Allergies/Home Medications Allergies/Adverse Reactions: Allergies Allergy/AdvReac Type Severity Reaction Status Date / Time shellfish derived Allergy Severe throat Verified 05/15/19 16:57 swollen, itching levetiracetam [From [facility]] Allergy Unknown Altered Verified 05/15/19 16:57 Mental Status erythromycin base AdvReac Severe Nausea And Verified 05/15/19 16:57 Vomiting morphine AdvReac Severe Itching Verified 05/15/19 16:57 Penicillins AdvReac Severe Hives Verified 05/15/19 16:57 tramadol AdvReac Severe Nausea Verified 05/15/19 16:57 latex AdvReac Intermediate Itching Verified 05/15/19 16:57 sunflower seeds AdvReac Severe cold sores Uncoded 05/15/19 16:57 Home Medications: Home Medications Multivitamin [Once Daily] 1 each PO DAILY 05/24/19 [History Confirmed 05/24/19] PMH/Surg Hx/FS Hx/Imm Hx Endocrine/Hematology History: Reports: Hx Thyroid Disease - hypothyroid Denies: Hx Diabetes Cardiovascular History: Reports: Other Cardiovascular Problems/Disorders - CARDIAC ARRYTHMIA SEEN A FEW YEARS AGO Denies: Hx Hypertension, Hx Pacemaker/ICD Respiratory History: Denies: Hx Asthma, Hx Chronic Obstructive Pulmonary Disease (COPD) GI History: Reports: Hx Gastroesophageal Reflux Disease Denies: Hx Ulcer History: Reports: Hx Kidney Infection Denies: Hx Renal Disease Musculoskeletal History: Denies: Hx Rheumatoid Arthritis, Hx Osteoporosis, Hx Scoliosis Sensory History: Reports: Hx Contacts or Glasses - glasses Denies: Hx Hearing Aid Opthamlomology History: Reports: Hx Contacts or Glasses - glasses Neurological History: Reports: Hx Migraine Denies: Hx Headaches, Other Neuro Impairments/Disorders Psychiatric History: Reports: Hx Anxiety, Hx Depression Denies: Hx Panic Disorder - Cancer History Hx Chemotherapy: No Hx Radiation Therapy: No - Surgical History Surgical History: Yes Surgery Procedure, Year, and Place: R humerus; L knee tendon, WISDOM TEETH, lumpectomy Hx Anesthesia Reactions: No - Immunization History Date of Tetanus Vaccine: utd Date of Influenza Vaccine: none Infectious Disease History: No Infectious Disease History: Denies: Hx Clostridium Difficile, Hx Hepatitis, Hx Human Immunodeficiency Virus (HIV), Hx of Known/Suspected MRSA, Hx Shingles, Hx Tuberculosis, Hx Known/ Suspected VRE, Hx Known/Suspected VRSA, History Other Infectious Disease, Traveled Outside the [place] in Last 30 Days - Family History Known Family History: Positive: Cardiac Disease - @46, Hypertension, Diabetes - father, Other - father had "skin CA in eye" - Social History Alcohol Use: None Hx Substance Use: No Substance Use Type: Reports: None Hx Tobacco Use: No Smoking Status (MU): Never Smoked Tobacco Have You Smoked in the Last Year: No - Additional Comments History Additional Comments: hypothyroidism, GERD, migraines, anxiety, depression Review of Systems - ROS Summary Review of Systems Summary: Home Medications Medication Instructions Recorded Confirmed Type Levothyroxine TAB* [Synthroid 100 112 mcg PO QAM 07/23/15 05/24/19 History MCG TAB*] ValACYclovir (*) [Valtrex 1 GM(*)] 500 mg PO DAILY 05/11/17 05/24/19 History Ibuprofen TAB* [Advil TAB*] 600 mg PO Q6H PRN 06/24/18 05/24/19 History Magnesium Oxide [Magnesium] 125 mg PO TID WITH MEALS 06/24/18 05/24/19 History Polyethylene Glycol 3350* 17 gm PO DAILY PRN 06/24/18 05/24/19 History [Miralax*] Topiramate TAB(*) [Topamax 25 MG 50 mg PO BEDTIME 06/24/18 05/24/19 History tab] buPROPion SR TAB* [Wellbutrin SR 200 mg PO BID 06/24/18 05/24/19 History TAB*] Multivitamin [Once Daily] 1 each PO DAILY 05/24/19 05/24/19 History Positive: Fever - subjective, Chills, Skin Diaphoresis Positive: Diplopia Positive: Abdominal Pain - worse on left, Nausea. Negative: Vomiting Neurological/Mental Status: Other - lightheadedness Positive: Headache All Other Systems Reviewed And Are Negative: Yes Physical Exam - Summary Physical Exam Summary: General: Well-developed, Well-nourished female. No acute distress. HEENT: Normocephalic, Atraumatic. Eyes: Conjuctiva normal, PERRL. Oropharynx: Clear, mucous membranes moist, (-) exudates. Neck: Soft, FROM, (-) lymphadenopathy, (-) thyromegaly, (-) JVD. Cardiovascular: Normal sinus rhythm, (-) murmur. Lungs: Clear to auscultation bilaterally (-) wheezes, (-) rales, (-) rhonchi. Abdomen: Soft, non-tender, non-distended, (-) organomegaly, normal bowel sounds. Back: (-) CVA tenderness Extremities: No edema. Skin: Warm, dry, (-) rash. Neuro: Alert and oriented x3, moves all extremities equally. No ataxia. No gait disturbance. No sensory deficit. Normal strength, normal sensation. Psychiatric: Mood normal, affect normal. Triage Information Reviewed: Yes Vital Signs On Initial Exam: Initial Vitals Temp Pulse Resp BP Pulse Ox 97.8 F 92 16 165/87 100 05/24/19 03:17 05/24/19 03:17 05/24/19 03:17 05/24/19 03:17 05/24/19 03:17 Vital Signs Reviewed: Yes Procedures - Sedation Patient Received Moderate/Deep Sedation with Procedure: No Diagnostics - Vital Signs Vital Signs Temp Pulse Resp BP Pulse Ox 05/24/19 04:03 78 19 100 05/24/19 04:02 75 20 137/75 100 05/24/19 03:32 83 18 100 05/24/19 03:31 84 20 123/81 100 05/24/19 03:17 97.8 F 92 16 165/87 100 - Laboratory Lab Results: Lab Results 05/24/19 05/24/19 05/24/19 Range/Units 03:53 03:53 03:53 WBC 7.7 (3.5-10.8) 10^3/uL RBC 4.25 (3.70-4.87) 10^6 /uL Hgb 13.1 (12.0-16.0) g/dL Hct 38 (35-47) % MCV 91 (80-97) fL MCH 31 (27-31) pg MCHC 34 (31-36) g/dL RDW 14 (10-15) % Plt Count 232 (150-450) 10^3/uL MPV 8.8 (7.4-10.4) fL Neut % (Auto) 64.3 % Lymph % (Auto) 22.2 % Stevens % (Auto) 6.7 % Eos % (Auto) 5.0 % Baso % (Auto) 1.8 % Absolute Neuts (auto) 5.0 (1.5-7.7) 10^3/ul Absolute Lymphs (auto) 1.7 (1.0-4.8) 10^3/ul Absolute Monos (auto) 0.5 (0-0.8) 10^3/ul Absolute Eos (auto) 0.4 (0-0.6) 10^3/ul Absolute Basos (auto) 0.1 (0-0.2) 10^3/ul Absolute Nucleated RBC 0.0 10^3/ul Nucleated RBC % 0.0 INR (Anticoag Therapy) 1.10 H (0.82-1.09) Sodium 138 (135-145) mmol/L Potassium 4.0 (3.5-5.0) mmol/L Chloride 110 (101-111) mmol/L Carbon Dioxide 22 (22-32) mmol/L Anion Gap 6 (2-11) mmol/L BUN 12 (6-24) mg/dL Creatinine 0.75 (0.51-0.95) mg/dL Est GFR ( Amer) 103.0 (>60) Est GFR (Non-Af Amer) 85.2 (>60) BUN/Creatinine Ratio 16.0 (8-20) Glucose 129 H (70-100) mg/dL Lactic Acid (0.5-2.0) mmol/L Calcium 8.8 (8.6-10.3) mg/dL Magnesium 1.9 (1.9-2.7) mg/dL Total Bilirubin 0.60 (0.2-1.0) mg/dL AST 15 (13-39) U/L ALT 32 (7-52) U/L Alkaline Phosphatase 61 (34-104) U/L Troponin I 0.00 (<0.03) ng/mL Total Protein 6.1 L (6.4-8.9) g/dL Albumin 4.1 (3.2-5.2) g/dL Globulin 2.0 (2-4) g/dL Albumin/Globulin Ratio 2.1 (1-3) TSH Pending Beta HCG, Quant 0.67 mIU/mL Urine Color Urine Appearance Urine pH (5-9) Ur Specific [place] (1.010-1.030) Urine Protein (Negative) Urine Ketones (Negative) Urine Blood (Negative) Urine Nitrate (Negative) Urine Bilirubin (Negative) Urine Urobilinogen (Negative) Ur Leukocyte Esterase (Negative) Urine WBC (Auto) (Absent) Urine RBC (Auto) (Absent) Ur Squamous Epith Cells (Absent) Urine Bacteria (Absent) Urine Glucose (Negative) Urine Opiates Screen (None Detect) Ur Barbiturates Screen (None Detect) Ur Phencyclidine Scrn (None Detect) Ur Amphetamines Screen (None Detect) U Benzodiazepines Scrn (None Detect) Urine Cocaine Screen (None Detect) U Cannabinoids Screen (None Detect) 05/24/19 05/24/19 05/24/19 Range/Units 03:53 04:01 04:01 WBC (3.5-10.8) 10^3/uL RBC (3.70-4.87) 10^6 /uL Hgb (12.0-16.0) g/dL Hct (35-47) % MCV (80-97) fL MCH (27-31) pg MCHC (31-36) g/dL RDW (10-15) % Plt Count (150-450) 10^3/uL MPV (7.4-10.4) fL Neut % (Auto) % Lymph % (Auto) % Stevens % (Auto) % Eos % (Auto) % Baso % (Auto) % Absolute Neuts (auto) (1.5-7.7) 10^3/ul Absolute Lymphs (auto) (1.0-4.8) 10^3/ul Absolute Monos (auto) (0-0.8) 10^3/ul Absolute Eos (auto) (0-0.6) 10^3/ul Absolute Basos (auto) (0-0.2) 10^3/ul Absolute Nucleated RBC 10^3/ul Nucleated RBC % INR (Anticoag Therapy) (0.82-1.09) Sodium (135-145) mmol/L Potassium (3.5-5.0) mmol/L Chloride (101-111) mmol/L Carbon Dioxide (22-32) mmol/L Anion Gap (2-11) mmol/L BUN (6-24) mg/dL Creatinine (0.51-0.95) mg/dL Est GFR ( Amer) (>60) Est GFR (Non-Af Amer) (>60) BUN/Creatinine Ratio (8-20) Glucose (70-100) mg/dL Lactic Acid 1.0 (0.5-2.0) mmol/L Calcium (8.6-10.3) mg/dL Magnesium (1.9-2.7) mg/dL Total Bilirubin (0.2-1.0) mg/dL AST (13-39) U/L ALT (7-52) U/L Alkaline Phosphatase (34-104) U/L Troponin I (<0.03) ng/mL Total Protein (6.4-8.9) g/dL Albumin (3.2-5.2) g/dL Globulin (2-4) g/dL Albumin/Globulin Ratio (1-3) TSH Beta HCG, Quant mIU/mL Urine Color Yellow Urine Appearance Turbid Urine pH 6.0 (5-9) Ur Specific [place] 1.023 (1.010-1.030) Urine Protein Negative (Negative) Urine Ketones Negative (Negative) Urine Blood Negative (Negative) Urine Nitrate Negative (Negative) Urine Bilirubin Negative (Negative) Urine Urobilinogen Negative (Negative) Ur Leukocyte Esterase 3+ A (Negative) Urine WBC (Auto) 3+(>20/hpf) A (Absent) Urine RBC (Auto) 2+(6-10/hpf) A (Absent) Ur Squamous Epith Cells Present A (Absent) Urine Bacteria Absent (Absent) Urine Glucose Negative (Negative) Urine Opiates Screen None detected (None Detect) Ur Barbiturates Screen None detected (None Detect) Ur Phencyclidine Scrn None detected (None Detect) Ur Amphetamines Screen Presumptive positive A (None Detect) U Benzodiazepines Scrn None detected (None Detect) Urine Cocaine Screen None detected (None Detect) U Cannabinoids Screen None detected (None Detect) Result Diagrams: 05/24/19 03:53 05/24/19 03:53 Lab Statement: Any lab studies that have been ordered have been reviewed, and results considered in the medical decision making process. Re-Evaluation - Re-Evaluation First Eval Re-Evaluation Time: 05:30 Change: Improved Comment: I have discussed results with the patient, and she is feeling well. Discussed symptoms that warrant immediate return to ED. Complex Multi-Symp Course/Dx Course Of Treatment: 39-year-old female presents from home by private vehicle with complaints of nausea and dizziness. He states that for the last 3 weeks she has had problems with nausea when she breathes. When she watches TV. Sometimes when she is just laying down. Describes a lightheadedness that accompanies. She states when she takes a nap and first wakes up it doesn't seem to be as bad but then when she gets up it is. She denies any fevers chills or signs or symptoms of acute illness. No vomiting or diarrhea. Has been eating normally. Drinking normally. No urinary complaints. Patient has been taking Dramamine occasionally for her symptoms. Also had an episode of burning up into her throat last night. On physical exam there are no significant abnormalities. A workup demonstrates amphetamines in the urine. Which patient adamantly denies. Possibly a false positive from pseudoephedrine. patient's urine has white blood cells but also has red blood cells, squamous cells. No bacteria noted. Will hold treatment until culture is available.patient is started on Prilosec for possible reflux. Advised follow -up with PCP. Follow-up sooner for any worsening symptoms. Patient started on Omeprazole in the ED. - Diagnoses Provider Diagnoses: Nausea, Acid reflux Discharge ED - Sign-Out/Discharge Documenting (check all that apply): Patient Departure - Patient will be discharged home. - Discharge Plan Condition: Stable Disposition: HOME Prescriptions: Omeprazole CAP(NF) [PriLOSEC CAP(NF)] 10 mg PO DAILY #30 cap Patient Education Materials: Gastroesophageal Reflux Disease (DC), Acute Nausea and Vomiting (ED) Referrals: Sharita Braun MD [Primary Care Provider] - 3 Days Additional Instructions: Please take medication as prescribed. Please follow up with your primary care physician within three days. Please return to ED for any new or worsening symptoms. - Billing Disposition and Condition Condition: STABLE Disposition: Home - Attestation Statements Document Initiated by Carloe: Yes Documenting Scribe: Carole Yi Provider For Whom Arnol is Documenting (Include Credential): Dr. Josefina Bryan MD Scribe Attestation: Carole Zimmerman scribed for Dr. Josefina Bryan MD on 05/24/19 at 0614. Scribe Documentation Reviewed: Yes Provider Attestation: The documentation as recorded by the Carole sanchez accurately reflects the service I personally performed and the decisions made by me, Dr. Josefina Bryan MD Status of Scribe Document: Viewed
[2019-05-24 05:13] LABS: TSH (Thyroid Stimulating Horm) 0.92 mcIU/mL (0.34-5.60)
[2019-05-24] MEDS ORDERED: Pantoprazole TAB * 40 MG TAB PO ONE (05:37)
[2019-05-24 05:51] VITALS: BP 128/89
== END 2019-05-24 05:50 | disposition home or self-care (01) ==
LOC: ED 03:15
DX: K21.9 Gastro-esophageal reflux disease without esophagitis (principal); E03.9 Hypothyroidism, unspecified; F41.9 Anxiety disorder, unspecified; F32.9 Major depressive disorder, single episode, unspecified; Z79.890 Hormone replacement therapy; Z79.899 Other long term (current) drug therapy; Z88.5 Allergy status to narcotic agent; Z88.0 Allergy status to penicillin; Z88.8 Allergy status to other drugs, medicaments and biological substances; Z88.1 Allergy status to other antibiotic agents; Z91.040 Latex allergy status
CPT/HCPCS: 36415; 80053; 80307; 81003; 81015; 83605; 83735; 84443; 84484; 84702; 85025; 85610; 87086; 99283; A9270-GY; G0480

== ENCOUNTER 2019-06-30 15:50 | Emergency (ER) | payer BC, OTHER ==
--- OUTSIDE RECORDS SUMMARY | 2019-06-30 15:59 | XMS REPORT | Continuity of Care Document ---
:1980 External Reference #:[id number] Author Name Val Tellez O.D. Address [address] [place] [address] Care Team Providers Name Role Phone Sharita Braun M.D. 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 Onset: 05/26/2019 Regular astigmatism Val Tellez O.D. Onset: 05/26/2019 Myopia Val Tellez O.D. Onset: 05/26/2019 Presbyopia Val Tellez O.D. Onset: 05/26/2019 Social History Type Date Description Comments Sex Unknown ETOH Use Denies alcohol use Tobacco Use Start: Unknown Patient has never smoked Recreational Drug Use Denies Drug Use Smoking Status Reviewed: 05/26/19 Patient has never smoked Allergies, Adverse Reactions, Alerts Active Allergies Reaction Severity Comments Date Erythromycin 05/26/2019 Morphine 05/26/2019 Keppra 05/26/2019 Tramadol 05/26/2019 Penicillin 05/26/2019 Shellfish 05/26/2019 Latex Contact dermatitis 05/26/2019 Medications Active Medications SIG Qnty Indications Ordering Date Provider Valacyclovir HCL Take One Tablet By Unknown 500mg Mouth Every Day Tablets Bupropion Hydrochloride Take One Tablet By Unknown ER (SR) Mouth Twice A Day 200mg Tablets ER 12HR Nitrofurantoin Take One Capsule Unknown Monohydrate/Macrocrysta By Mouth Twice A ls Day 100mg Capsules Topiramate Take One Tablet By Unknown 50mg Tablets Mouth Every Day Levothyroxine Sodium Take One Tablet By Unknown 112mcg Mouth Every Day Tablets Before Breakfast Ibuprofen 200 x4 Unknown 200mg Tablets Omeprazole Unknown 10mg Caps[address] Magnesium Unknown 400mg Tablets Multiple Vitamins Unknown Tablets Pepcid Unknown 20mg Tablets Immunizations Description No Information Available Vital Signs Description No Information Available Results Description No Information Available Procedures Description No Information Available Medical Devices Description No Information Available Encounters Description No Information Available Assessments Date Code Description Provider 05/26/2019 H53.9 Unspecified visual disturbance Val Tellez O.D. 05/26/2019 H52.4 Presbyopia Val Tellez O.D. 05/26/2019 H52.13 Myopia, bilateral Val Tellez O.D. 05/26/2019 H52.223 Regular astigmatism, bilateral Val Tellez O.D. Plan of Treatment 05/26/2019 - Val Tellez O.D.H53.9 Unspecified visual disturbanceComments: Getting a pair of glasses that help with reading could help with your symptoms.If your symptoms worsen, please follow up with your PCPFollow up:1 month review of [id number] PresbyopiaComments:Smoking can increase the risk of developing or worsening any eye related disease, as well as affect your overall health. If you are a smoker, we strongly recommend that you quit.If you are not a smoker, we strongly recommend that you do not start. You have presbyopia. This is when the lens in your eye loses the ability to change focus , and happens as we age. A pair of reading glasses will help you see up close.H52.13 Myopia, bilateralComments:You have Myopia, or near sightedness. I have given you a prescription for glasses.H52.223 Regular astigmatism, bilateralComments:Astigmatism is a common vision condition that happens when a person's cornea is not symmetrical. Dr. Tellez has given you a prescription to correct for this. Functional Status Description No Information Available Mental Status Description No Information Available Referrals Description No Information Available
--- OUTSIDE RECORDS SUMMARY | 2019-06-30 15:59 | XMS REPORT | Summary of Care ---
:1980 Author Organization [facility] Address [address] [facility] [place] [address] Care Team Providers Name Role Phone Charity Braunentina Primary Care Provider Reason for Visit Reason Comments Follow Up bloating, nausea, stomach pain in left side. Blood in stool as of yesterday (06/04/19) maroon in color. Increased SOB at rest starting over a month ago. Encounter Details Date Type Department Care Team Description 06/05/2019 Office Visit Simone Gallegos Light stools (Primary Dx); Gastroenterology/Hepa Abbie Shetty NP Nausea; tology [address] [address] Dark stools; [address] [place] [address] Constipation, [place] [address] [phone] Allergies Active Allergy Reactions Severity Noted Date Comments Erythromycin GI Reaction Low 02/13/2015 Latex Rash, Hives Medium 10/18/2012 Other reaction(s): Itching Morphine Hives Medium 02/13/2015 Opioid Analgesics Dermatologic Reaction, GI Medium 10/18/2012 Reaction Oxycodone GI Reaction Low 07/17/2015 Penicillins Swelling, Hives Medium 02/13/2015 Shellfish Allergy Swelling 11/24/2018 [place] Oil Dermatologic Reaction 04/24/2017 Tramadol GI Reaction 02/13/2015 Other reaction(s): Nausea documented as of this encounter (statuses as of 06/05/2019) Medications Medication Sig Dispensed Refills Start Date [...] TWICE CapIndications: DAILY. Constipation, unspecified constipation type Additional Information Patient taking differently: 100 mg Oral PRN, Reported on 06/05/2019 12:55 PM BuPROPion HCl 200 MG Take 1 Tab by 60 Tab 5 01/05/2019 Active Oral TABLET SR 12 mouth TWICE HRIndications: DAILY. Depression, unspecified depression type valacyclovir (VALTREX) Take 1 Tab by 30 Tab 5 01/18/2019 Active 500 MG Oral mouth DAILY. TabIndications: Herpes simplex Topiramate 50 MG Oral Take 1 Tab by 30 Tab 5 01/30/2019 Active Tab mouth DAILY. escitalopram (LEXAPRO) TAKE ONE 30 Tab 5 03/14/2019 Active 20 MG Oral TABLET BY TabIndications: MOUTH EVERY Depression, DAY unspecified depression type levothyroxine Take 1 Tab by 30 Tab 2 03/27/2019 Active (SYNTHROID) 112 MCG mouth BEFORE Oral Tab BREAKFAST. famotidine (PEPCID) 20 Take 1 Tab by 60 Tab 1 04/10/2019 Active MG Oral Tab mouth TWICE DAILY. Multiple Take 1 Tab by 0 Active Vitamins-Minerals mouth DAILY. (MULTIVITAMIN ADULT PO) colestipol (COLESTID) Take 2 Tabs by 120 Tab 3 06/05/2019 Active 1 GM Oral Tab mouth TWICE DAILY. Magnesium Citrate 200 Take 3 Tabs by 180 Tab 3 06/05/2019 Active MG Oral Tab mouth TWICE DAILY. ondansetron (ZOFRAN) 4 Take 1 Tab by 30 Tab 0 06/05/2019 Active MG Oral Tab mouth EVERY EIGHT HOURS NEEDED (nausea). Magnesium 125 MG Oral Take 1 Cap by 90 Cap 1 05/05/2018 06/05/19 Discontinued (Dose CapIndications: mouth THREE 20 Adjustment) Constipation, TIMES DAILY unspecified WITH MEALS. constipation type documented as of this encounter (statuses as of 06/05/2019) Active Problems Problem Noted Date Depression 09/30/2016 Hypothyroidism 08/18/2015 documented as of this encounter (statuses as of 06/05/2019) Social History Tobacco Use Types Packs/Day Years [...] week 2018 How often do you attend worship or hindu services? Never 05/05/2018 Do you belong to any clubs or organizations such as worship No 05/05/2018 groups, unions, fraternal or athletic [...] Assigned at Date Recorded Not on file documented as of this encounter Last Filed Vital Signs Vital Sign Reading Time Taken Comments Blood Pressure 135/84 06/05/2019 12:43 PM EST Pulse 86 06/05/2019 12:43 PM EST Temperature - - Respiratory Rate 16 06/05/2019 12:43 PM EST Oxygen Saturation 98% 06/05/2019 12:43 PM EST Inhaled Oxygen Concentration - - Weight 59.7 kg (131 lb 9.6 oz) 06/05/2019 12:43 PM EST Height 165.1 cm (5' 5") 06/05/2019 12:43 PM EST Body Mass Index 21.9 06/05/2019 12:43 PM EST documented in this encounter Patient Instructions Patient InstructionsAbbie Gallegos NP - 06/05/2019 1:00 PM EST1. Stool test as soon as you can complete 2. After stool is collected start Colestid 2 caps twice daily 3. Change in the dosing of the Magnesium citrate, increase to 600mg twice daily 4. Continue the Pepcid 5. May use Zofran as needed for nausea 6. Be sure to mention your nausea symptoms to the neurologist 7. Follow up in 1 month Thank you for choosing the [facility] for your needs today! -Abbie Gallegos N.P. , Please call if you need to cancel or change your appt. time. Thank you for choosing [facility] for your health care needs, and for consulting with [facility] today. You may receive a survey following this visit, or after an upcoming hospital stay. As easy as it is to feel overloaded with surveys, we are required to send them out randomly and they do provide important feedback so that we may serve your needs in the best way. Please do take the few minutes required to complete the survey if you receive one. We get them too, after seeing the doctor, and they only take a few minutes to complete. documented in this encounter Progress Notes Abbie Gallegos NP - 06/05/2019 1:00 PM EST PATIENT: Nikki Ahn : 1980 DATE OF SERVICE: 06/05/2019 REFERRING PRACTITIONER: Sharita Braun PRIMARY CARE PROVIDER: Sharita Braun CHIEF COMPLAINT: Chief Complaint Patient presents with ? Follow Up bloating, nausea, stomach pain in left side. Blood in stool as of yesterday () maroon in color. Increased SOB at rest starting over a month ago. Subjective HISTORY OF PRESENT ILLNESS: Nikki Ahn is a 39-y.o. female who presents for follow-up of persistent nausea and constipation. She reports int he past 1 week her stools have been light colored and dark maroon in color. She is having a stool every other day, consistency varies. She reports the nausea is quite debilitating, impacting her everyday life, minimally responsive to acid medical director. Testing thus far: 04/20/2018 EGD positive for gastritis 05/25/2018 GES normal Celiac and thyroid studies are normal 11/29/2018 CT brain unremarkable Denies abdominal pain, heartburn, dysphagia, fatigue, vomiting, melena, hamatemesis, hematochezia, constipation, diarrhea, jaundice, fevers, chills, night sweats, weight loss, easy bruising, chest pain, shortness of breath, dysuria, hematuria, pyuria, joint pains, acholic stools, dark urine or systemic pruritis. Current Outpatient Medications Medication Sig ? APPLE CIDER VINEGAR PO Take by mouth DAILY. ? BuPROPion HCl 200 MG Oral TABLET SR 12 HR Take 1 Tab by mouth TWICE DAILY. ? Cholecalciferol (VITAMIN D PO) Take by mouth DAILY. ? colestipol (COLESTID) 1 GM Oral Tab Take 2 Tabs by mouth TWICE DAILY. ? docusate sodium (COLACE) 100 MG Oral Cap Take 1 Cap by mouth TWICE DAILY. (Patient taking differently: Take 100 mg by mouth NEEDED.) ? escitalopram (LEXAPRO) 20 MG Oral Tab TAKE ONE TABLET BY MOUTH EVERY DAY ? famotidine (PEPCID) 20 MG Oral Tab Take 1 Tab by mouth TWICE DAILY. ? ibuprofen (IBU-200) 200 MG Oral Tab Take 200 mg by mouth EVERY SIX HOURS NEEDED for Pain. ? levothyroxine (SYNTHROID) 112 MCG Oral Tab Take 1 Tab by mouth BEFORE BREAKFAST. ? Magnesium Citrate 200 MG Oral Tab Take 3 Tabs by mouth TWICE DAILY. ? Multiple Vitamins-Minerals (MULTIVITAMIN ADULT PO) Take 1 Tab by mouth DAILY. ? ondansetron (ZOFRAN) 4 MG Oral Tab Take 1 Tab by mouth EVERY EIGHT HOURS NEEDED (nausea). ? Topiramate 50 MG Oral Tab Take 1 Tab by mouth DAILY. ? valacyclovir (VALTREX) 500 MG Oral Tab Take 1 Tab by mouth DAILY. No current facility-administered medications for this visit. Allergies Allergen Reactions ? Latex Rash and Hives Other reaction(s): Itching ? Morphine Hives ? Opioid Analgesics Dermatologic Reaction and GI Reaction ? Penicillins Swelling and Hives ? Shellfish Allergy Swelling ? [place] Oil Dermatologic Reaction ? Tramadol GI Reaction Other reaction(s): Nausea ? Erythromycin GI Reaction ? Oxycodone GI Reaction REVIEW OF SYSTEMS: All remaining review of systems was negative except for as noted in the history of present illness/subjective. Objective PHYSICAL EXAMINATION: VITALS: BP 135/84 (BP Location: Right arm, Patient Position: Sitting) | Pulse 86 | Resp 16 | Ht 5' 5" (1.651 m) | Wt 131 lb 9.6 oz (59.7 kg) | LMP 2019 | SpO2 98% | BMI 21.90 kg/m Body mass index is 21.9 kg/m. GENERAL: alert, oriented, no acute distress. HEENT: No scleral icterus, MMM Psych: Affect normal Neck: no lymphadenopathy LUNGS: clear to auscultation bilaterally. HEART: regular rhythm, no murmurs, no gallops, no rubs. ABDOMEN: general exam: soft, non-tender, non-distended, without masses or organomegaly, normal active bowel sounds, Cifuentes's sign negative. Extrmities: no edema Skin: clear Neuro: gait normal, a&o x 3 RECTAL: exam deferred. IMPRESSION: ICD-9-CM ICD-10-CM 1. Light stools 792.1 R19.5 PANCREATIC ELASTASE 1 2. Nausea 787.02 R11.0 PANCREATIC ELASTASE 1 3. Dark stools 792.1 R19.5 FIT (FECAL OCCULT IMMUNOCHEMICAL TEST) 4. Constipation, unspecified constipation type 564.00 K59.00 MAGNESIUM LEVEL Plan PLAN: Patient Instructions 1. Stool test as soon as you can complete 2. After stool is collected start Colestid 2 caps twice daily 3. Change in the dosing of the Magnesium citrate, increase to 600mg twice daily 4. Continue the Pepcid 5. May use Zofran as needed for nausea 6. Be sure to mention your nausea symptoms to the neurologist 7. Follow up in 1 month Thank you for choosing the [facility] for your needs today! -Abbie Gallegos N.P. , Please call if you need to cancel or change your appt. time. Thank you for choosing [facility] for your health care needs, and for consulting with [facility] today. You may receive a survey following this visit, or after an upcoming hospital stay. As easy as it is to feel overloaded with surveys, we are required to send them out randomly and they do provide important feedback so that we may serve your needs in the best way. Please do take the few minutes required to complete the survey if you receive one. We get them too, after seeing the doctor, and they only take a few minutes to complete. Author: Abbie Gallegos NP 06/05/2019 13:49 documented in this encounter Plan of Treatment Date Type Specialty Care Team Description 07/06/2019 Office Visit Gastroenterology Abbie Gallegos NP [address] [place] [address] 08/04/2019 Office Visit Neurology Avinash Mcclellan MD [address] [place] [address] Name Type Priority Associated Diagnoses Order Schedule PANCREATIC ELASTASE 1 Lab Routine Light stools Expected: 06/05/2019 Nausea (Approximate), Expires: 12/06/2019 FIT (FECAL OCCULT Lab Routine Dark stools Expected: 06/05/2019 IMMUNOCHEMICAL TEST) (Approximate), Expires: 12/02/2019 MAGNESIUM LEVEL Lab Routine Constipation, Expected: 06/05/2019 unspecified constipation (Approximate), type Expires: 08/05/2019 Health Maintenance Due Date Last Done Comments PAP SMEAR 07/18/2017 07/18/2014 DTaP/Tdap/Td Vaccines (1 - 08/10/2019 Postponed from Tdap) 1989 (Other) DEPRESSION SCREENING 09/21/2019 09/20/2018, 09/20/2018 MAMMOGRAM (SCREENING) 06/01/2020 06/01/2019, 04/29/2018, 02/23/2018, Additional history exists LIPID DISORDER SCREENING 05/05/2023 05/05/2018 HEPATITIS A IMMUNIZATION Aged Out No longer eligible SERIES based on patient's age to complete this [...] filedocumented in this encounter Visit Diagnoses Diagnosis Light stools Nonspecific abnormal finding in stool contents Nausea Nausea alone Dark stools Nonspecific abnormal finding in stool contents Constipation, unspecified constipation type documented in this encounter Insurance Payer Benefit Plan / Subscriber ID Effective Dates Phone Address Type Group [employer] [id number] 2017-Present [employer] Guarantor Name Account Type Relation to Date of Phone Billing Patient Address [place] Personal/Family 1980 [phone] (Home) [facility] [address] documented as of this encounter
--- NOTE | 2019-06-30 16:14 | UC ---
General HPI - HPI Summary HPI Summary: Pleasant 39 yo female c/o one week progressive, worsening pleuritic (inspiratory ) chest pain. Max 5/10. Minimal to no pain with expiration. Pain is mid to left ant chest, goes to back Hurts to lie on back. Able to sleep but not on back. No recent illness. No cough / cold / fever / chills. Household contact was tested for covid this week No rash. No recent travel No ocp Nonsmoker, non2nd hand smoke No abd pain, no n/v/d. No c/os hx anxiety chest pain last year, but reports that this is not anything like that pain hx gerd (?) but not recently Recent appetite fair, is able to eat / drink denies personal hx dm Brothers + chf and cad -> stent (currently late 40/s early 50/s) + h/a 2 days ago (hx migraines), which is better now No recent vis / aud changes Noted some paresthesia L hand yesterday, thinks might have slept wrong position. Gone now. Tried taking ibuprofen and cough medicine over the last couple days (none today) , but didn't help discomfort. Reviewed [facility] - hx R breast lumpectomy Seen in ED June 2018, - History of Current Complaint Stated Complaint: CHEST PAIN Time Seen by Provider: 06/30/19 15:53 Hx Obtained From: Patient Hx Last Menstrual Period: 2 weeks ago - Allergy/Home Medications Allergies/Adverse Reactions: Allergies Allergy/AdvReac Type Severity Reaction Status Date / Time shellfish derived Allergy Severe throat Verified 06/30/19 16:32 swollen, itching levetiracetam [From [facility]] Allergy Unknown Altered Verified 06/30/19 16:32 Mental Status erythromycin base AdvReac Severe Nausea And Verified 06/30/19 16:32 Vomiting morphine AdvReac Severe Itching Verified 06/30/19 16:32 Penicillins AdvReac Severe Hives Verified 06/30/19 16:32 tramadol AdvReac Severe Nausea Verified 06/30/19 16:32 latex AdvReac Intermediate Itching Verified 06/30/19 16:32 sunflower seeds AdvReac Severe cold sores Uncoded 06/30/19 16:32 Home Medications: Home Medications Levothyroxine TAB* [Synthroid 100 MCG TAB*] 112 mcg PO QAM 07/23/15 [History Confirmed 06/30/19] ValACYclovir (*) [Valtrex 1 GM(*)] 500 mg PO DAILY 05/11/17 [History Confirmed 06/30/19] Ibuprofen TAB* [Advil TAB*] 600 mg PO Q6H PRN 06/24/18 [History Confirmed ] Magnesium Oxide [Magnesium] 125 mg PO TID WITH MEALS 06/24/18 [History Confirmed 06/30/19] Polyethylene Glycol 3350* [Miralax (17 GM DOSE FRANCA)] 17 gm PO DAILY PRN [History Confirmed 06/30/19] Topiramate TAB(*) [Topamax 25 MG tab] 50 mg PO BEDTIME 06/24/18 [History Confirmed 06/30/19] buPROPion SR TAB* [Wellbutrin SR TAB*] 200 mg PO BID 06/24/18 [History Confirmed 06/30/19] Multivitamin [Once Daily] 1 each PO DAILY 05/24/19 [History Confirmed 06/30/19] Omeprazole CAP(NF) [PriLOSEC CAP(NF)] 10 mg PO DAILY #30 cap 05/24/19 [Rx Confirmed 06/30/19] PMH/Surg Hx/FS Hx/Imm Hx Previously Healthy: No - Surgical History Surgical History: Yes Surgery Procedure, Year, and Place: R humerus; L knee tendon, WISDOM TEETH, lumpectomy - Family History Known Family History: Positive: Cardiac Disease - @46, Hypertension, Diabetes - father, Other - father had "skin CA in eye" - Social History Alcohol Use: None Substance Use Type: None Smoking Status (MU): Never Smoked Tobacco Have You Smoked in the Last Year: No - Immunization History Most Recent Tetanus Shot: 9 years ago Review of Systems All Other Systems Reviewed And Are Negative: Yes Constitutional: Positive: Negative Skin: Positive: Negative Eyes: Positive: Negative ENT: Positive: Negative Respiratory: Positive: Other - see hpi Cardiovascular: Positive: Other - see hpi Gastrointestinal: Positive: Negative Genitourinary: Positive: Negative Motor: Positive: Negative Neurovascular: Positive: Negative Musculoskeletal: Positive: Negative Neurological/Mental Status: Positive: Negative Psychological: Positive: Negative Is Patient Immunocompromised?: No Physical Exam Triage Information Reviewed: Yes Appearance: Well-Nourished - sitting up, conversing in full sentances Vital Signs Reviewed: Yes Eye Exam: Normal ENT: Positive: Pharyngeal erythema - mild post pharnyg redness, no sores / exudates, uvula midline, TM dull - L tm dul Bilat tm's + scar (hx pe tubes as a child). Negative: Nasal congestion Neck exam: Normal Neck: Positive: Supple, Nontender, No Lymphadenopathy Respiratory Exam: Other - + discomfort with full inspiration. Able to breath out ok No rtx No adventitious bs BS full, equal, clear to auscultation Respiratory: Positive: No respiratory distress, No accessory muscle use Cardiovascular Exam: Other - HR apprx 100's correlates with L radial pulse Cardiovascular: Positive: No Murmur, Brisk Capillary Refill Abdominal Exam: Normal Abdomen Description: Positive: Nontender Musculoskeletal Exam: Normal Musculoskeletal: Positive: Strength Intact, ROM Intact, No Edema Neurological Exam: Normal - grossly nonfocal Psychological Exam: Normal - nad Skin Exam: Normal - nad nondiaphoretic no visible or reported rash Course/Dx - Course Course Of Treatment: EKG SR 107 bpm pr 132 qtc 453 C/w most recent 06/24/18 (pr 103->132 o/w unchanged) Reviewed cta 06/24/18 (see [employer] report, no pulm emb) 06/24/18- d-dimer 520 06/30/19: rapid strep neg Inflenza neg Covid 19 pending ua / ucg - noted Chest xray including exp view - nad (see [employer] report) REviewed VS HR 101, BP 148/76 T 98.2 Sat 99% Diff dx extensive. C/n exclude serious issue. Doubt primary cad issue, but other (includ pulmonary) are higher in the differential. Recommend further eval / rx in ED. MDulces [place] Contento carefully considered the above. Will go to the ED. Has and is wearing mask. Questions as posed answered to the best of my ability. - Diagnoses Provider Diagnosis: Chest pain Discharge ED - Sign-Out/Discharge Documenting (check all that apply): Patient Departure All imaging exams completed and their final reports reviewed: Yes - Discharge Plan Condition: Guarded Disposition: HOME-RECOMMEND TO ED Patient Education Materials: Chest Pain (ED) Referrals: Sharita Braun MD [Primary Care Provider] - Additional Instructions: Please go to the Emergency Department Stop and call 911 if problems en route - Billing Disposition and Condition Condition: GUARDED Disposition: Home-Recommend to ED
[2019-06-30 16:31] LABS: Influenza A Molecular Negative (Negative); Influenza B Molecular Negative (Negative)
[2019-06-30 16:32] VITALS: BP 148/76
== END 2019-06-30 18:10 | disposition home health service (06) ==
LOC: UCEAST 15:50
DX: R07.89 Other chest pain (principal); Z32.02 Encounter for pregnancy test, result negative; Z20.828 Contact with and (suspected) exposure to other viral communicable diseases; Z88.1 Allergy status to other antibiotic agents; Z91.040 Latex allergy status; Z88.5 Allergy status to narcotic agent; Z88.0 Allergy status to penicillin; Z88.8 Allergy status to other drugs, medicaments and biological substances; Z91.018 Allergy to other foods; Z82.49 Family history of ischemic heart disease and other diseases of the circulatory system
CPT/HCPCS: 71046; 81003; 84702; 87635; 87651; 99212; G0463

== ENCOUNTER 2019-06-30 19:11 | Emergency (ER) | payer BC ==
--- NOTE | 2019-06-30 20:37 | ED ---
HPI Cardiac - HPI Summary HPI Summary: Patient is a 39 y/o F presenting to [facility] with complaints of chest pain with deep breaths and SOB. Sx have been present for the past two months and worsened in the past week. Deep breaths aggravate her chest pain, pain is rated 5/10 in severity. Patient decided to come in to ED for evaluation as she has been in contact with an individual who was recently tested for COVID-19. She initially was evaluated at [facility] urgent care and was referred to ED. She denies chest pain with exertion, fever, chills, diaphoresis, sore throat, body aches, pain/ swelling to legs. PMHx of hypothyroidism, migraines, and depression noted. No Hx of HTN, HLD, diabetes noted. The patient states that she has a brother who had a cardiac stent placed. FMHX of diabetes is noted as well. She is unsure of FMHx of blood clots. Patient notes a previous visit to [facility] when she was having chest pain and had received CTA chest. This was negative for pulmonary embolism. Patient does not report any fever, chills, erythema of eyes, sore throat, cough , abdominal pain, nausea/vomiting, dysuria, hematuria, myalgia, edema, rash, or dizziness. Home medications and allergies are reviewed. - History of Current Complaint Chief Complaint: EDShortnessOfBreath Stated Complaint: SOB/CHEST PAIN PER PT Time Seen by Provider: 06/30/19 20:23 Hx Obtained From: Patient Hx Last Menstrual Period: 2 weeks ago Onset/Duration: Started Weeks Ago, Worse Since Timing: Lasting Weeks Current Severity: Moderate Pain Intensity: 5 Pain Scale Used: 0-10 Numeric Aggravating Factor(s): Deep Breaths Associated Signs and Symptoms: Positive: Chest Pain, Shortness of Breath, Other : - does not report any fever, chills, erythema of eyes, sore throat, cough, abdominal pain, nausea/vomiting, dysuria, hematuria, myalgia, edema, rash, or dizziness. Negative: Dizziness, Swelling, Fever, Chills, Diaphoresis, Nausea, Cough, Productive Cough, Nonproductive Cough, Abdominal Pain, Calf Pain/Swelling , Vomiting - Allergy/Home Medications Allergies/Adverse Reactions: Allergies Allergy/AdvReac Type Severity Reaction Status Date / Time shellfish derived Allergy Severe throat Verified 06/30/19 19:37 swollen, itching levetiracetam [From [facility]] Allergy Unknown Altered Verified 06/30/19 19:37 Mental Status erythromycin base AdvReac Severe Nausea And Verified 06/30/19 19:37 Vomiting morphine AdvReac Severe Itching Verified 06/30/19 19:37 Penicillins AdvReac Severe Hives Verified 06/30/19 19:37 tramadol AdvReac Severe Nausea Verified 06/30/19 19:37 latex AdvReac Intermediate Itching Verified 06/30/19 19:37 sunflower seeds AdvReac Severe cold sores Uncoded 06/30/19 19:37 Home Medications: Home Medications Levothyroxine TAB* [Synthroid 100 MCG TAB*] 112 mcg PO QAM 07/23/15 [History Confirmed 06/30/19] ValACYclovir (*) [Valtrex 1 GM(*)] 500 mg PO DAILY 05/11/17 [History Confirmed 06/30/19] Ibuprofen TAB* [Advil TAB*] 600 mg PO Q6H PRN 06/24/18 [History Confirmed ] Magnesium Oxide [Magnesium] 125 mg PO TID WITH MEALS 06/24/18 [History Confirmed 06/30/19] Polyethylene Glycol 3350* [Miralax (17 GM DOSE FRANCA)] 17 gm PO DAILY PRN [History Confirmed 06/30/19] Topiramate TAB(*) [Topamax 25 MG tab] 50 mg PO BEDTIME 06/24/18 [History Confirmed 06/30/19] buPROPion SR TAB* [Wellbutrin SR TAB*] 200 mg PO BID 06/24/18 [History Confirmed 06/30/19] Multivitamin [Once Daily] 1 each PO DAILY 05/24/19 [History Confirmed 06/30/19] Omeprazole CAP(NF) [PriLOSEC CAP(NF)] 10 mg PO DAILY #30 cap 05/24/19 [Rx Confirmed 06/30/19] PMH/Surg Hx/FS Hx/Imm Hx Endocrine/Hematology History: Reports: Hx Thyroid Disease - hypothyroid Denies: Hx Diabetes Cardiovascular History: Reports: Other Cardiovascular Problems/Disorders - CARDIAC ARRYTHMIA SEEN A FEW YEARS AGO Denies: Hx Hypertension, Hx Pacemaker/ICD Respiratory History: Denies: Hx Asthma, Hx Chronic Obstructive Pulmonary Disease (COPD) GI History: Reports: Hx Gastroesophageal Reflux Disease Denies: Hx Ulcer History: Reports: Hx Kidney Infection Denies: Hx Renal Disease Musculoskeletal History: Denies: Hx Rheumatoid Arthritis, Hx Osteoporosis, Hx Scoliosis Sensory History: Reports: Hx Contacts or Glasses - glasses Denies: Hx Hearing Aid Opthamlomology History: Reports: Hx Contacts or Glasses - glasses Neurological History: Reports: Hx Migraine Denies: Hx Headaches, Other Neuro Impairments/Disorders Psychiatric History: Reports: Hx Anxiety, Hx Depression Denies: Hx Panic Disorder - Cancer History Hx Chemotherapy: No Hx Radiation Therapy: No - Surgical History Surgery Procedure, Year, and Place: R humerus; L knee tendon, WISDOM TEETH, lumpectomy Hx Anesthesia Reactions: No - Immunization History Date of Tetanus Vaccine: utd Date of Influenza Vaccine: none Infectious Disease History: No Infectious Disease History: Denies: Hx Clostridium Difficile, Hx Hepatitis, Hx Human Immunodeficiency Virus (HIV), Hx of Known/Suspected MRSA, Hx Shingles, Hx Tuberculosis, Hx Known/ Suspected VRE, Hx Known/Suspected VRSA, History Other Infectious Disease, Traveled Outside the [place] in Last 30 Days - Family History Known Family History: Positive: Cardiac Disease - @46, Hypertension, Diabetes - father, Other - father had "skin CA in eye" - Social History Alcohol Use: None Hx Substance Use: No Substance Use Type: Reports: None Hx Tobacco Use: No Smoking Status (MU): Never Smoked Tobacco Have You Smoked in the Last Year: No Review of Systems Positive: Other - negative - body aches . Negative: Fever, Chills, Skin Diaphoresis Negative: Erythema Negative: Sore Throat Positive: Chest Pain Positive: Shortness Of Breath. Negative: Cough Negative: Abdominal Pain, Vomiting, Nausea Negative: dysuria, hematuria Negative: Myalgia, Edema Negative: Rash Neurological/Mental Status: Other - negative - dizziness All Other Systems Reviewed And Are Negative: Yes Physical Exam - Summary Physical Exam Summary: Constitutional: Well-developed, Well-nourished, Alert. (-) Distressed Skin: Warm, Dry HENT: Normocephalic; Atraumatic Eyes: Conjunctiva normal Neck: Musculoskeletal ROM normal neck. (-) JVD, (-) Stridor, (-) Tracheal deviation Cardio: Rhythm regular, rate normal, Heart sounds normal; Intact distal pulses; The pedal pulses are 2+ and symmetric. Radial pulses are 2+ and symmetric. (-) Murmur Pulmonary/Chest wall: Effort normal. (-) Respiratory distress, (-) Wheezes, (-) Rales Abd: Soft, (-) tenderness, (-) Distension, (-) Guarding, (-) Rebound Musculoskeletal: (-) Edema Lymph: (-) Cervical adenopathy Neuro: Alert, Oriented x3 Psych: Mood and affect Normal Triage Information Reviewed: Yes Vital Signs On Initial Exam: Initial Vitals Temp Pulse Resp BP Pulse Ox 97.4 F 96 14 124/79 98 06/30/19 19:36 06/30/19 19:36 06/30/19 19:36 06/30/19 19:36 06/30/19 19:36 Vital Signs Reviewed: Yes Procedures - Sedation Patient Received Moderate/Deep Sedation with Procedure: No Diagnostics - Vital Signs Vital Signs Temp Pulse Resp BP Pulse Ox 06/30/19 19:36 97.4 F 96 14 124/79 98 - Laboratory Result Diagrams: 06/30/19 20:43 06/30/19 20:43 Lab Statement: Any lab studies that have been ordered have been reviewed, and results considered in the medical decision making process. - CT CTA CHEST/THORAX CT Interpretation Completed By: Radiologist Summary of CT Findings: IMPRESSION: 1. No visible acute pulmonary embolism. 2. No other acute CT pathology. THIS REPORT WAS REVIEWED BY ED PHYSICIAN. - EKG 1927 Cardiac Rate: NL - RATE OF 98 BPM EKG Rhythm: Sinus Rhythm Summary of EKG Findings: EKG showed NSR with rate of 98 BPM, no STEMI. ED physician has reviewed and interpreted this EKG. Disposition - Course Course Of Treatment: Patient is a 39 y/o F presenting to [facility] with complaints of chest pain with deep breaths and SOB. Sx have been present for the past two months and worsened in the past week. Deep breaths aggravate her chest pain, pain is rated 5/10 in severity. Patient decided to come in to ED for evaluation as she has been in contact with an individual who was recently tested for COVID- 19. She initially was evaluated at [facility] urgent care and was referred to ED. She denies chest pain with exertion, fever, chills, diaphoresis, sore throat, body aches, pain/swelling to legs. PMHx of hypothyroidism, migraines, and depression noted. No Hx of HTN, HLD, diabetes noted. The patient states that she has a brother who had a cardiac stent placed. FMHX of diabetes is noted as well. She is unsure of FMHx of blood clots. Patient notes a previous visit to [facility] when she was having chest pain and had received CTA chest. This was negative for pulmonary embolism. Physical exam was unremarkable. EKG showed NSR with rate of 98 BPM, no STEMI. Bloodwork was obtained. Trop was negative. Only abnormal values noted include globulin 1.8, total protein 6, glucose 66. CTA CHEST/ THORAX IMPRESSION: 1. No visible acute pulmonary embolism. 2. No other acute CT pathology. Differential Dx is pulmonary embolism, pneumonia, malignancy, low suspicion for CAD, pleurisy, psychogenic. Patient is signed-out to Dr. Bryan at 2200 06/30/19 shift end pending 2nd troponin. - Diagnoses Provider Diagnoses: Pleuritic chest pain Discharge ED - Sign-Out/Discharge Documenting (check all that apply): Sign-Out Patient Signing out patient TO: Josefina Bryan - Discharge Plan Condition: Stable Referrals: Sharita Braun MD [Primary Care Provider] - - Attestation Statements Document Initiated by Scribe: Yes Documenting Scribe: DONOVAN ELISE Provider For Whom Scribe is Documenting (Include Credential): VICTORIANO YEE MD Scribe Attestation: DONOVAN Zimmerman, scribed for VICTORIANO YEE MD on 06/30/19 at 2153. Status of Scribe Document: Ready
[2019-06-30 20:54] LABS: ABS Basophils 0.1 10^3/ul (0-0.2); ABS Eosinophils 0.2 10^3/ul (0-0.6); ABS Lymphocytes 1.8 10^3/ul (1.0-4.8); ABS Monocytes 0.6 10^3/ul (0-0.8); ABS Neutrophils 4.4 10^3/ul (1.5-7.7); Eosinophil % 3.3 %; Hematocrit 37 % (35-47); Hemoglobin 12.9 g/dL (12.0-16.0); Lymphocyte % 24.9 %; Mean Corpuscular HGB Conc 35 g/dL (31-36); Mean Corpuscular Hemoglobin 31 pg (27-31); Mean Corpuscular Volume 89 fL (80-97); Mean Platelet Volume 8.7 fL (7.4-10.4); Platelet Count 255 10^3/uL (150-450); Red Blood Count 4.19 10^6 /uL (3.70-4.87); Red Cell Distribution Width 13 % (10-15); White Blood Count 7.1 10^3/uL (3.5-10.8)
[2019-06-30 21:11] LABS: Albumin 4.2 g/dL (3.2-5.2); Albumin/Globulin Ratio 2.3 (1-3); BUN/Creatinine Ratio 14.6 (8-20); Calcium 9.1 mg/dL (8.6-10.3); EGFR Non-African American 76.8 (>60); Globulin 1.8 g/dL (2-4); Potassium 3.6 mmol/L (3.5-5.0); Total Bilirubin 0.4 mg/dL (0.2-1.0)
[2019-06-30] MEDS ORDERED: Iohexol 350* (CONTRAST) 500 ML MDV IV ONE (21:14)
--- NOTE | 2019-06-30 23:15 | ED ---
Progress - Progress Note Progress Note: The patient is a sign-out from Dr. Juan David Marvin MD, to Dr. Josefina Bryan MD, at change of shift at 2200 on 06/30/19, pending second troponin and disposition. Second troponin is negative. Patient is safe for discharge. Re-Evaluation - Re-Evaluation First Eval Re-Evaluation Time: 00:40 Change: Improved Comment: Results discussed. Discussed symptoms that warrant return to the emergency department. Course/Dx - Diagnoses Provider Diagnoses: Pleuritic chest pain Discharge ED - Sign-Out/Discharge Documenting (check all that apply): Patient Departure - Patient will be discharged home., Receiving Sign-Out Receiving patient FROM: Juan David Marvin - Patient is a sign-out from Dr. Juan David Marvin MD, at change of shift at 2200 on 06/30/19, pending second troponin and disposition. - Discharge Plan Condition: Stable Disposition: HOME Patient Education Materials: Chest Pain (DC) Referrals: Sharita Braun MD [Primary Care Provider] - 3 Days Additional Instructions: Follow up with your primary care provider in 2-3 days. Return to the emergency department for any new or worsening symptoms. - Billing Disposition and Condition Condition: STABLE Disposition: Home - Attestation Statements Document Initiated by Scribe: Yes Documenting Scribe: Carole Yi Provider For Whom Arnol is Documenting (Include Credential): Josefina Bryan MD Scribe Attestation: Carole Zimmerman, scribed for Josefina Bryan MD on 07/01/19 at 0233. Scribe Documentation Reviewed: Yes Provider Attestation: The documentation as recorded by the Carole sanchez accurately reflects the service I personally performed and the decisions made by me, Josefina Bryan MD Status of Scribe Document: Viewed
[2019-07-01 01:05] VITALS: BP 121/87
== END 2019-07-01 01:05 | disposition home or self-care (01) ==
LOC: ED 19:11
DX: R07.89 Other chest pain (principal); R06.02 Shortness of breath; E03.9 Hypothyroidism, unspecified; F41.9 Anxiety disorder, unspecified; F32.9 Major depressive disorder, single episode, unspecified; Z20.828 Contact with and (suspected) exposure to other viral communicable diseases; Z88.6 Allergy status to analgesic agent; Z79.890 Hormone replacement therapy; Z79.899 Other long term (current) drug therapy; Z86.79 Personal history of other diseases of the circulatory system
CPT/HCPCS: 36415; 71275; 80053; 83605; 84484; 85025; 93005; 99283; Q9967